=== PATIENT | female | born 1955 | race Caucasian/White ===

== ENCOUNTER → 2016-04-18 | Outpatient (CLI) | payer MEDICARE, OTHER ==
[~2016-04-18] MED LIST: ABILIFY5 MG PO; ALLOPURINOL300 MG PO; AMBIEN10 MG PO; AMITRIPTYLINE H10 M1 PO; AMITRIPTYLINE H75 M1 PO; ANTI-DIARRHEAL2 MG PO; ASPIR-LOW81 MG PO; ASPIRIN 32325 MG/TAB PO; ASPIRIN 81M81 MG/TA2 PO; ASPIRIN E.C. 8181 MG PO; ATARAX50 MG PO; ATIVAN 0.50.5 MG/TAB PO; AUGMENTIN 875 M1 TAB PO; BACTRIM DS 8001 TAB PO; BIO-CEF500 MG PO; BIOTIN FORTE EXT5 MG PO; CIPRO 500MG TA500 MG PO; COLACE 100100 MG/CAP PO; CRESTOR 10MG10 MG PO; CRESTOR40 MG PO; CYMBALTA 60MG60 MG PO; DESYREL 50MG50 MG PO; DOXYCYCLINE 10100 MG PO; DULCOLAX STOOL100 MG PO; EFFEXOR XR150 MG PO; EFFEXOR XR37.5 MG/CA PO; EFFEXOR-XR150 MG PO; EFFEXOR75 MG PO; ELAVIL100 MG PO; ELAVIL150 MG PO; FERRO-TIME325 MG PO; FERROUS SU325 MG/TAB PO; FUROSEMIDE PO; GABAPENTIN300 M1 PO; GABAPENTIN300 MG PO; GABAPENTIN600 MG PO; GLUCOPHAGE1000 MG PO; GLYBURIDE MICRON3 MG PO; HYDROCHLOR50 MG PO; INSULIN ASPART; IRON TABLETS325 MG PO; IRON324 M1 PO; KLONOPIN 0.5MG0.5 MG PO; KLONOPIN1 MG PO; KLOR-CON M2020 MEQ PO; LAMICTAL 100MG100 MG PO; LAMICTAL ODT200 MG MM; LAMICTAL ODT50 MG PO; LAMICTAL XR200 MG PO; LAMICTAL200 MG PO; LAMICTAL25 MG PO; LASIX 20MG TABL20 MG PO; LASIX 40MG TABL40 MG PO; LASIX ORAL S10 MG/ML PEG; LASIX20 MG PO; LATUDA20 MG PO; LATUDA40 MG PO; LATUDA60 MG PO; LATUDA80 MG PO; LEVAQUIN 250MG250 MG PO; LEVAQUIN 5500 MG/TA1 PO; LEVAQUIN 5500 MG/TAB PO; LEVAQUIN 750MG750 MG PO; LEVEMIR FLEX100 U/ML SQ; LEVEMIR FLEXPEN SC; LEVEMIR SQ; LEVEMIR100 U/ML SC; LEVEMIR100 U/ML SQ; LEVIMIR INSULIN; LEVOXYL0.05 MG PO; LEXAPRO20 MG PO; LIPITOR 40MG TA40 MG PO; LISINOPRIL PO; LISINOPRIL2.5 MG PO; LISINOPRIL5 MG PO; LITHIUM 30300 MG/CAP PO; LOPID 600M600 MG/TAB PO; LOPRESSOR 225 MG/TAB PO; LORTAB 5/500 501 TAB PO; LOVAZA1 GM PO; LYRICA150 MG PO; MACROBID 1100 MG/CAP PO; MAG-OX 400400 MG/TAB PO; MASON NATURAL2000 IU PO; MELATONIN3 M1 PO; MELATONIN5 M1 PO; METFORMIN500 MG PO; MINIPRESS2 MG PO; MINOCIN100 MG PO; MINOCYCLIN100 MG/CAP PO; MINOCYCLINE HY100 M1 PO; MONODOX100 PO; MONUROL 3 GM3 G/PKT PO; MOTRIN IB200 MG PO; MS CONTIN30 MG PO; MULTI VITAMINS1 TAB PO; MULTIPLE VITAMI1 CAP PO; MULTIPLE VITAMI1 TAB PO; MVI PO; NATURE'S BLE1000 MCG PO; NEURONTIN100 MG/CAP PO; NEURONTIN300 MG PO; NEURONTIN300 MG/CAP PO; NEURONTIN400 MG/CAP PO; NITRO-DUR0.4 MG/PAT TD; NITROSTAT0.4 MG/TAB SL; NORCO 325 MG-7.1 TAB PO; NORVASC 5MG5 MG/TAB PO; NOVLOG SQ; NOVOLOG 100U100 U/M1 SQ; NOVOLOG FLEX100 U/ML SC; NOVOLOG100 U/ML IV; OXYCONTIN 10MG10 MG PO; OXYCONTIN 20MG20 MG PO; OXYCONTIN15 MG PO; PERCOCET 325 MG1 TA2 PO; PERCOCET 325 MG1 TAB PO; PERCOCET 5/321 UDTAB PO; PERCR 7.5 PO; PHENERGAN 25 TA25 MG PO; PLAVIX 75MG TAB75 MG PO; PRAVACHOL 20MG20 MG PO; PRAVACHOL10 MG PO; PRAVACHOL80 MG PO; PRESERVISION1 SGL PO; PREVACHOL; PRIL40 PO; PRILOSEC40 MG PO; PRINIVIL10 MG PO; PRINIVIL2.5 MG PO; PRINIVIL5 MG PO; PROBIOTICA100 MILLIO PO; PROTONIX 40MG T40 MG PO; PROZAC 20MG20 MG PO; RESTORIL 77.5 MG/CAP PO; REVIA 50MG TABL50 MG PO; RITE AID BIO2500 MCG PO; ROCEPHIN VIA1 G/VIAL IV; ROXICODONE 55 MG/TAB PO; SEPTRA DS 8001 TAB PO; SEROQUEL50 MG PO; SODIUM BICARBO650 MG PO; SOME ANTIBIOTIC; SYNTHROID0.05 MG PO; SYNTHROID0.05 MG/TA PO; SYNTHROID0.1 MG PO; TOPAMAX 100MG100 M1 PO; TOPAMAX 100MG100 MG PO; TOPROL PO; TOPROL XL 25MG25 MG PO; TOPROL XL 50MG50 MG PO; TOPROL XL100 MG PO; TOPROL XL50 MG PO; TRAMADOL; TRAZADONE HYDR100 MG PO; TRESIBA FL100 UNIT/1 SQ; TYLENOL 325MG325 MG PO; TYLENOL 500MG500 MG PO; TYLENOL EXTRA500 M1 PO; Toprol XL PO; ULTRAM 50MG TAB50 MG PO; ULTRAM ER100 MG PO; ULTRAM50 MG PO; VANCOCIN PO; VICTOZA SQ; VITAMIN C BUFF500 MG PO; VITAMIN C500 MG PO; VITAMIN D 50,1.25 MG PO; VITAMIN D1000 IU PO; VITAMIN D2000 I1 PO; VITAMIN D31000 I1 PO; VITAMIN D32000 I1 PO; XODOL 7.5 PO; ZESTRIL 10MG10 MG PO; ZESTRIL PO; ZESTRIL2.5 MG PO; ZESTRIL5 MG PO; ZINC SO4 PO; ZITHROMAX Z PA250 MG PO; ZOFRAN 4MG T4 MG/TAB PO; ZOFRAN INJ4 MG/2 ML IV; ZOFRAN ODT4 MG PO; ZOFRAN4 M1 PO; ZOLOFT 100MG100 MG PO; ZYLOPRIM 100MG100 MG PO; ZYLOPRIM 300MG300 MG PO; ZYRTEC 10MG10 MG PO; [UNRECOGNIZED DRUG - OTHER]; [UNRECOGNIZED DRUG - OTHER] IV; [UNRECOGNIZED DRUG - OTHER] SC
== END ==
LOC: BHSO 10:54
DX: F31.74 Bipolar disorder, in full remission, most recent episode manic (principal)

== ENCOUNTER → 2016-05-14 | Outpatient (CLI) | payer MEDICARE, OTHER | LOC: WCC 09:16 | DX: E11.622 Type 2 diabetes mellitus with other skin ulcer (principal); Z89.522 Acquired absence of left knee | CPT/HCPCS: G0463 ==

== ENCOUNTER → 2016-05-17 | Outpatient (CLI) | payer MEDICARE, OTHER | LOC: BHSO 10:00 | DX: F31.81 Bipolar II disorder (principal) ==

== ENCOUNTER → 2016-05-23 | Outpatient (CLI) | payer MEDICARE, OTHER | LOC: WCC 09:53 | DX: T87.89 Other complications of amputation stump (principal); E11.622 Type 2 diabetes mellitus with other skin ulcer | CPT/HCPCS: G0463 ==

== ENCOUNTER → 2016-05-30 | Outpatient (CLI) | payer MEDICARE, OTHER | LOC: WCC 09:18 | DX: T87.89 Other complications of amputation stump (principal); E11.622 Type 2 diabetes mellitus with other skin ulcer | CPT/HCPCS: G0463 ==

== ENCOUNTER → 2016-06-13 | Outpatient (CLI) | payer MEDICARE, OTHER | LOC: WCC 09:57 | DX: T87.89 Other complications of amputation stump (principal); E11.622 Type 2 diabetes mellitus with other skin ulcer; L97.829 Non-pressure chronic ulcer of other part of left lower leg with unspecified severity | CPT/HCPCS: 17717; 27517; A6207; A6212; G0463 ==

== ENCOUNTER → 2016-06-27 | Outpatient (CLI) | payer MEDICARE, OTHER | LOC: WCC 09:58 | DX: T87.89 Other complications of amputation stump (principal); E11.622 Type 2 diabetes mellitus with other skin ulcer; L97.829 Non-pressure chronic ulcer of other part of left lower leg with unspecified severity | CPT/HCPCS: 17717; 27517; A6207; A6212; G0463 ==

== ENCOUNTER → 2016-07-03 | Outpatient (CLI) | payer MEDICARE, OTHER | LOC: ZCOL.LAB 16:10 | DX: Z11.2 Encounter for screening for other bacterial diseases (principal) ==

== ENCOUNTER 2016-07-05 09:31 | Inpatient (IN) | payer MEDICARE, OTHER ==
[~2016-07-05] VITALS: Ht 160 cm; Wt 81.7 kg
[~2016-07-05 09:31] MED LIST changes: -ATARAX50 MG PO; -ATIVAN 0.50.5 MG/TAB PO; -NOVOLOG 100U100 U/M1 SQ; -PRESERVISION1 SGL PO; -RESTORIL 77.5 MG/CAP PO; -TRESIBA FL100 UNIT/1 SQ; -VITAMIN D 50,1.25 MG PO
[2016-08-07] VITALS (12 sets, daily range): BP systolic 94–127; BP diastolic 47–68; PULSE 68–91; TEMP 97.8–98.6
[2016-08-07] MEDS ORDERED: VITAMIN D 50,1.25 MG PO (06:32)
[2016-08-07] MEDS ORDERED: DOXYCYCLINE 10100 MG PO (06:40)
[2016-08-07] MEDS ORDERED: LOPRESSOR 225 MG/TAB PO (06:40)
[2016-08-07] MEDS ORDERED: ATARAX50 MG PO (06:41)
[2016-08-07] MEDS ORDERED: TRESIBA FL100 UNIT/1 SQ (06:41)
[2016-08-07] MEDS ORDERED: PRESERVISION1 SGL PO (06:42)
[2016-08-07] MEDS ORDERED: NOVOLOG 100U100 U/M1 SQ (06:42)
[2016-08-07] MEDS ORDERED: ATIVAN 0.50.5 MG/TAB PO (06:43)
[2016-08-07] MEDS ORDERED: EFFEXOR-XR150 MG PO (06:44)
[2016-08-07] MEDS ORDERED: RESTORIL 77.5 MG/CAP PO (06:46)
[2016-08-07] MEDS ORDERED: NEURONTIN400 MG/CAP PO (10:17)
[2016-08-07 10:54] LABS: CALCIUM 10.2 mg/dL (8.4-10.2); CREATININE, serum 1.35 mg/dL (0.52-1.25); POTASSIUM 4.4 mmol/L (3.4-5.0)
[2016-08-08 02:00] VITALS: BP 117/65; PULSE 94
[2016-08-08 04:04] VITALS: BP 130/72; PULSE 97; TEMP 98.1
[2016-08-08 08:09] LABS: HEMATOCRIT 35.8 % (37.0-47.0)
[2016-08-08 08:26] LABS: CALCIUM 9.3 mg/dL (8.4-10.2); CREATININE, serum 1.23 mg/dL (0.52-1.25)
[2016-08-08 10:19] VITALS: BP 113/73; PULSE 94; TEMP 98.8
[2016-08-08 13:37] VITALS: BP 127/60; PULSE 96
[2016-08-08 16:54] VITALS: BP 115/46; PULSE 94; TEMP 98.1
[2016-08-08 21:50] VITALS: BP 137/55; PULSE 75; TEMP 98.5
[2016-08-09] VITALS (7 sets, daily range): BP systolic 119–151; BP diastolic 51–88; PULSE 91–104; TEMP 98–98.6
[2016-08-09 13:08] LABS: CREATININE, serum 1.22 mg/dL (0.52-1.25)
[2016-08-10 05:55] VITALS: BP 122/69; PULSE 90; TEMP 98.8
[2016-08-10] MEDS ORDERED: NORCO 325 MG-7.1 TAB PO (06:10)
[2016-08-10] MEDS ORDERED: TRESIBA FL100 UNIT/1 SQ (08:06)
[2016-08-10 09:11] VITALS: BP 124/68; PULSE 88
[2016-08-10 12:35] VITALS: BP 124/68; PULSE 88; TEMP 98.8
== END 2016-08-10 13:15 | DRG 475 ==
LOC: SURG 08-07 06:03 → INPTSU 08-07 06:03 → SURG 08-07 07:30
PROVIDERS: Nurse Anesthetist, Certified Registered; Orthopaedic Surgery; Physician Assistant
PROC: 0Y6D0Z3 Detachment at Left Upper Leg, Low, Open Approach (ICD-10-PCS; principal; 2016-08-07 07:30)
DX: T87.44 Infection of amputation stump, left lower extremity (principal); I13.0 Hypertensive heart and chronic kidney disease with heart failure and stage 1 through stage 4 chronic kidney disease, or unspecified chronic kidney disease; I50.32 Chronic diastolic (congestive) heart failure; N17.9 Acute kidney failure, unspecified; L97.829 Non-pressure chronic ulcer of other part of left lower leg with unspecified severity; N18.3 Chronic kidney disease, stage 3 (moderate); E11.22 Type 2 diabetes mellitus with diabetic chronic kidney disease; F31.9 Bipolar disorder, unspecified; Z79.4 Long term (current) use of insulin; I25.10 Atherosclerotic heart disease of native coronary artery without angina pectoris; Z95.1 Presence of aortocoronary bypass graft; E11.42 Type 2 diabetes mellitus with diabetic polyneuropathy; E11.622 Type 2 diabetes mellitus with other skin ulcer; E11.65 Type 2 diabetes mellitus with hyperglycemia; Z90.5 Acquired absence of kidney
CPT/HCPCS: 99223; 99232-AI; A9284; J0690; J1815; J2250; J2270; J2704; J3370; J7030; J7050

== ENCOUNTER → 2016-07-16 | Outpatient (CLI) | payer MEDICARE, OTHER ==
[~2016-07-16] MED LIST changes: +ATARAX50 MG PO; +ATIVAN 0.50.5 MG/TAB PO; +NOVOLOG 100U100 U/M1 SQ; +PRESERVISION1 SGL PO; +RESTORIL 77.5 MG/CAP PO; +TRESIBA FL100 UNIT/1 SQ; +VITAMIN D 50,1.25 MG PO
== END ==
LOC: BHSO 11:35
DX: F31.81 Bipolar II disorder (principal)

== ENCOUNTER → 2016-08-03 | Outpatient (CLI) | payer MEDICARE, OTHER, MEDICAID | LOC: BHSO 10:47 | DX: F31.81 Bipolar II disorder (principal) ==

== ENCOUNTER → 2016-11-15 | Outpatient (CLI) | payer MEDICARE, OTHER | LOC: MC.RAD 13:14 | DX: Z12.31 Encounter for screening mammogram for malignant neoplasm of breast (principal); N63 Unspecified lump in breast; Z85.72 Personal history of non-Hodgkin lymphomas ==

== ENCOUNTER → 2016-11-16 | Outpatient (CLI) | payer MEDICARE, OTHER | LOC: MC.RAD 12:49 | DX: N63 Unspecified lump in breast (principal) ==

== ENCOUNTER 2017-04-03 10:47 | Inpatient (IN) | payer MEDICARE, OTHER ==
[2017-04-03] VITALS (428 sets, daily range): BP systolic 107–148; BP diastolic 56–96; PULSE 76–83; TEMP 97.5–98; O2SAT 81–100
[~2017-04-03] VITALS: Ht 154.9 cm; Wt 78.2 kg
[2017-04-03 11:34] LABS: BASO # 0.1 (0.0-0.2); BASO % 0.6 % (0.0-2.0); EOS # 0.3 (0.0-0.7); EOS % 2.8 % (0-4.0); GRAN # 6.1 (1.4-6.5); GRAN % 68.7 % (42.2-75.2); HEMATOCRIT 43.2 % (37.0-47.0); HEMOGLOBIN 14.3 g/dl (12.5-16.0); LYMPH # 1.7 (1.2-3.4); LYMPH % 19.5 % (20.0-51.0); MEAN CELL VOLUME 86 fl (80.0-100.0); MEAN CORPUSCULAR HEMOGLOBIN 28 pg (27.0-31.0); MEAN CORPUSCULAR HGB CONC 33 g/dl (33.0-37.0); MEAN PLATELET VOLUME 8.7 fl (7.4-10.4); MONO # 0.6 (0.1-0.6); PLATELET COUNT 136 K/mm3 (130-400); RED BLOOD COUNT 5.04 M/mm3 (4.10-5.30); REDCELL DISTRIBUTION WIDTH-CV 15.3 % (11.5-14.5)
[2017-04-03 11:36] LABS: ALANINE AMINOTRANSFERASE 30 U/L (9-52); ALBUMIN 4.8 gm/dL (3.5-5.0); ALKALINE PHOSPHATASE 158 U/L (50-136); ANION GAP 16 mmol/L (7-16); AST,SGOT 31 U/L (15-37); BILIRUBIN,TOTAL 0.6 mg/dL (0.0-1.0); BLOOD UREA NITROGEN 49 mg/dL (7-17); CALCIUM 11.1 mg/dL (8.4-10.2); CARBON DIOXIDE 17 mmol/L (22-30); CHLORIDE 107 mmol/L (98-107); CREATININE, serum 1.25 mg/dL (0.52-1.25); GLUCOSE 167 mg/dL (74-106); POTASSIUM 3.9 mmol/L (3.4-5.0); SODIUM 140 mmol/L (137-145); TOTAL PROTEIN 7.7 gm/dL (6.4-8.2)
[2017-04-03 11:52] LABS: TROPONIN-I < 0.012 ng/mL (0.000-0.034)
[2017-04-03 11:54] LABS: INR 1.1 (0.8-3.0); PROTHROMBIN TIME 12.7 SECONDS (9.7-12.8)
[2017-04-03 11:57] LABS: PARTIAL THROMBOPLASTIN TIME 32.4 SECONDS (26.0-37.0)
[2017-04-04] VITALS (471 sets, daily range): BP systolic 96–135; BP diastolic 46–91; PULSE 77–85; TEMP 97.5–99.5; O2SAT 63–100
[2017-04-04 05:16] LABS: BASO % 0.4 % (0.0-2.0); EOS # 0.2 (0.0-0.7); EOS % 2.3 % (0-4.0); GRAN # 6.8 (1.4-6.5); LYMPH # 1.4 (1.2-3.4); LYMPH % 15.7 % (20.0-51.0); MEAN CELL VOLUME 87 fl (80.0-100.0); MEAN CORPUSCULAR HGB CONC 33 g/dl (33.0-37.0); MEAN PLATELET VOLUME 8.3 fl (7.4-10.4); MONO # 0.7 (0.1-0.6); MONO % 7.1 % (1.7-9.3); PLATELET COUNT 109 K/mm3 (130-400); RED BLOOD COUNT 4.09 M/mm3 (4.10-5.30); REDCELL DISTRIBUTION WIDTH-CV 15.3 % (11.5-14.5)
[2017-04-04 05:17] LABS: HEMATOCRIT 35.6 % (37.0-47.0); HEMOGLOBIN 11.8 g/dl (12.5-16.0); MEAN CORPUSCULAR HEMOGLOBIN 29 pg (27.0-31.0)
[2017-04-04 05:28] LABS: CALCIUM 10.2 mg/dL (8.4-10.2); CREATININE, serum 1.27 mg/dL (0.52-1.25)
[2017-04-04 05:39] LABS: TROPONIN-I 0.012 ng/mL (0.000-0.034)
[2017-04-04] MEDS ORDERED: LOPRESSOR 225 MG/TAB PO (08:48)
[2017-04-05] VITALS: BP 113/62; PULSE 74; TEMP 98.9
[2017-04-05 04:53] VITALS: BP 106/67; PULSE 73; TEMP 98.5
[2017-04-05 06:50] LABS: CALCIUM 10.1 mg/dL (8.4-10.2); CREATININE, serum 1.27 mg/dL (0.52-1.25)
[2017-04-05 08:35] VITALS: BP 121/65; PULSE 79; TEMP 97.4
[2017-04-05 12:27] VITALS: BP 118/62; PULSE 79; TEMP 97.9
[2017-04-05 16:57] VITALS: BP 117/70; PULSE 78; TEMP 98.4
[2017-04-05 18:36] LABS: COLLECTION METHOD CLEAN CATCH
[2017-04-05 18:45] LABS: PH 5 (5-8); SQUAMOUS EPITHELIAL 0-2 /hpf; URINE APPEARANCE Hazy; URINE BACTERIA Rare /hpf; URINE BILIRUBIN Negative (NEGATIVE); URINE BLOOD Negative (NEGATIVE); URINE COLOR Yellow; URINE GLUCOSE Negative (NEGATIVE); URINE KETONE Negative (NEGATIVE); URINE LEUKOCYTE ESTERASE Trace (NEGATIVE); URINE NITRATE Negative (NEGATIVE); URINE PROTEIN(semi-quant) Negative (NEGATIVE); URINE RBC 0-2 /hpf; URINE UROBILINOGEN Negative (NEGATIVE)
[2017-04-05 19:50] VITALS: BP 110/59; PULSE 74; TEMP 97.5
[2017-04-06 00:05] VITALS: BP 107/59; PULSE 74; TEMP 98.3
[2017-04-06 02:45] VITALS: BP 104/56; PULSE 88; TEMP 98.7
[2017-04-06 07:46] LABS: BASO % 0.5 % (0.0-2.0); EOS # 0.3 (0.0-0.7); EOS % 4.8 % (0-4.0); GRAN # 4.2 (1.4-6.5); GRAN % 63.9 % (42.2-75.2); LYMPH # 1.5 (1.2-3.4); LYMPH % 22.7 % (20.0-51.0); MEAN CELL VOLUME 89 fl (80.0-100.0); MEAN CORPUSCULAR HGB CONC 32 g/dl (33.0-37.0); MEAN PLATELET VOLUME 9.3 fl (7.4-10.4); MONO # 0.5 (0.1-0.6); MONO % 7.5 % (1.7-9.3); PLATELET COUNT 101 K/mm3 (130-400); RED BLOOD COUNT 3.81 M/mm3 (4.10-5.30); REDCELL DISTRIBUTION WIDTH-CV 15.4 % (11.5-14.5)
[2017-04-06 07:51] LABS: HEMATOCRIT 33.7 % (37.0-47.0); HEMOGLOBIN 10.9 g/dl (12.5-16.0); MEAN CORPUSCULAR HEMOGLOBIN 29 pg (27.0-31.0)
[2017-04-06 08:00] VITALS: BP 103/64; PULSE 73; TEMP 97.3
[2017-04-06 08:07] LABS: CALCIUM 10.3 mg/dL (8.4-10.2); CREATININE, serum 1.27 mg/dL (0.52-1.25); POTASSIUM 3.7 mmol/L (3.4-5.0)
[2017-04-06 12:57] VITALS: BP 110/54; PULSE 65; TEMP 98
[2017-04-06 16:19] VITALS: BP 104/52; PULSE 65; TEMP 98.8
[2017-04-06 20:40] VITALS: BP 138/62; PULSE 70; TEMP 98.5
[2017-04-07 00:33] VITALS: BP 106/55; PULSE 66; TEMP 98.4
[2017-04-07 03:04] VITALS: BP 110/55; PULSE 65; TEMP 98.7
[2017-04-07 08:45] VITALS: BP 97/54; PULSE 65; TEMP 98.2
[2017-04-07 12:16] VITALS: BP 104/40; PULSE 62; TEMP 98.4
[2017-04-07 15:05] VITALS: BP 102/56; PULSE 67; TEMP 98.3
[2017-04-07 20:00] VITALS: BP 121/50; PULSE 71; TEMP 98.2
[2017-04-08 00:12] VITALS: BP 127/60; PULSE 70; TEMP 98.2
[2017-04-08 04:52] VITALS: BP 102/67; PULSE 64; TEMP 98.2
[2017-04-08 07:29] VITALS: BP 106/49; PULSE 67; TEMP 97.6
[2017-04-08 11:15] VITALS: BP 101/46; PULSE 70; TEMP 97.9
[2017-04-08] MEDS ORDERED: MACROBID 1100 MG/CAP PO (12:04)
[2017-04-08] MEDS ORDERED: IMDUR 30MG30 MG/TAB PO (13:03)
[2017-04-08 13:10] VITALS: BP 101/46; PULSE 70; TEMP 97.9
== END 2017-04-08 14:55 | DRG 247 ==
LOC: COL.ER 10:47 → MEDICAL 13:12 → ICU 13:12 → COL.ER 13:17 → ICU 15:27 → COL.ER 15:27 → MEDICAL 04-04 11:20
PROVIDERS: Emergency Medicine; Internal Medicine; Internal Medicine Cardiovascular Disease; Nurse Practitioner Family
PROC: 0271356 Dilation of Coronary Artery, Two Arteries, Bifurcation, with Two Drug-eluting Intraluminal Devices, Percutaneous Approach (ICD-10-PCS; principal; 2017-04-03)
PROC: B2111ZZ Fluoroscopy of Multiple Coronary Arteries using Low Osmolar Contrast (ICD-10-PCS; 2017-04-03)
PROC: 4A023N8 Measurement of Cardiac Sampling and Pressure, Bilateral, Percutaneous Approach (ICD-10-PCS; 2017-04-03)
DX: I25.110 Atherosclerotic heart disease of native coronary artery with unstable angina pectoris (principal); N39.0 Urinary tract infection, site not specified; I12.9 Hypertensive chronic kidney disease with stage 1 through stage 4 chronic kidney disease, or unspecified chronic kidney disease; E11.22 Type 2 diabetes mellitus with diabetic chronic kidney disease; N18.3 Chronic kidney disease, stage 3 (moderate); K21.9 Gastro-esophageal reflux disease without esophagitis; M10.9 Gout, unspecified; D50.9 Iron deficiency anemia, unspecified; F31.9 Bipolar disorder, unspecified; E03.9 Hypothyroidism, unspecified; M79.662 Pain in left lower leg; M79.661 Pain in right lower leg; B96.20 Unspecified Escherichia coli [E. coli] as the cause of diseases classified elsewhere; Z95.1 Presence of aortocoronary bypass graft; Z87.442 Personal history of urinary calculi; Z95.5 Presence of coronary angioplasty implant and graft
CPT/HCPCS: 99223-AI; 99232-AI; 99233-AI; 99239; C1725; C1760; C1769; C1874; C1887; C1894; C9600; J1644; J1815; J2250; J2270; J3010; J7030; Q9967

== ENCOUNTER → 2017-08-23 | Outpatient (CLI) | payer MEDICARE, OTHER ==
[~2017-08-23] MED LIST changes: +FLEXERIL 1010 MG/TAB PO; +IMDUR 30MG30 MG/TAB PO; +LOMOTIL 0.025 M1 TAB PO; +NOVOLOG FLEX100 U/ML SQ; +PANCREAZE 437501 ECC PO
== END ==
LOC: BHSO 09:12
DX: F31.81 Bipolar II disorder (principal)
CPT/HCPCS: G0463

== ENCOUNTER → 2017-10-07 | Outpatient (REF) ==
[~2017-10-07] MED LIST changes: +FLOMAX 0.40.4 MG/CAP PO; +INDERAL60 MG PO; +PROAMATINE 5MG T5 MG PO; +SENSIPAR30 MG PO; +SYNTHROID 0.0.025 MG PO; +URECHOLINE50 MG PO
[2017-10-07 17:28] LABS: CALCIUM 10.9 mg/dL (8.4-10.2); CREATININE, serum 1.44 mg/dL (0.52-1.25)
== END ==
LOC: ZCOL.LAB 17:05
PROVIDERS: Internal Medicine
DX: I25.10 Atherosclerotic heart disease of native coronary artery without angina pectoris (principal)

== ENCOUNTER → 2017-10-14 | Outpatient (REF) ==
[2017-10-14 10:57] LABS: COLLECTION METHOD CATHETER
[2017-10-14 11:18] LABS: PH 7 (5-8); SQUAMOUS EPITHELIAL 0-2 /hpf; URINE APPEARANCE Clear; URINE BACTERIA Rare /hpf; URINE BILIRUBIN Negative (NEGATIVE); URINE BLOOD 1+ (NEGATIVE); URINE COLOR Straw; URINE GLUCOSE Negative (NEGATIVE); URINE KETONE Negative (NEGATIVE); URINE LEUKOCYTE ESTERASE 2+ (NEGATIVE); URINE NITRATE Negative (NEGATIVE); URINE PROTEIN(semi-quant) Negative (NEGATIVE); URINE RBC 0-2 /hpf; URINE UROBILINOGEN Negative (NEGATIVE)
== END ==
LOC: ZCOL.LAB 10:55
PROVIDERS: Internal Medicine
DX: N39.0 Urinary tract infection, site not specified (principal)

== ENCOUNTER → 2017-10-17 | Outpatient (REF) | LOC: ZCOL.LAB 22:20 | DX: Z87.440 Personal history of urinary (tract) infections (principal) ==

== ENCOUNTER 2017-10-21 15:56 | Emergency (ER) | payer MEDICARE, OTHER ==
[2008-12-27 17:53] VITALS: BP 144/90
[~2017-10-21] VITALS: Ht 157.5 cm; Wt 74.5 kg
[2017-10-21 15:57] VITALS: TEMP 98.9
[2017-10-21 16:43] LABS: COLLECTION METHOD CATHETER
[2017-10-21 16:48] LABS: BASO # 0.1 (0.0-0.2); BASO % 0.6 % (0.0-2.0); EOS # 0.5 (0.0-0.7); EOS % 5.3 % (0-4.0); GRAN # 6.1 (1.4-6.5); HEMATOCRIT 39.1 % (37.0-47.0); HEMOGLOBIN 12.8 g/dl (12.5-16.0); LYMPH # 1.8 (1.2-3.4); LYMPH % 20.2 % (20.0-51.0); MEAN CELL VOLUME 86 fl (80.0-100.0); MEAN CORPUSCULAR HEMOGLOBIN 28 pg (27.0-31.0); MEAN CORPUSCULAR HGB CONC 33 g/dl (33.0-37.0); MEAN PLATELET VOLUME 8.8 fl (7.4-10.4); MONO # 0.5 (0.1-0.6); MONO % 5.1 % (1.7-9.3); PLATELET COUNT 149 K/mm3 (130-400); RED BLOOD COUNT 4.57 M/mm3 (4.10-5.30); REDCELL DISTRIBUTION WIDTH-CV 13.9 % (11.5-14.5)
[2017-10-21 16:51] LABS: PH 6 (5-8); SQUAMOUS EPITHELIAL 0-2 /hpf; URINE APPEARANCE Cloudy; URINE BACTERIA Rare /hpf; URINE BILIRUBIN Negative (NEGATIVE); URINE BLOOD 1+ (NEGATIVE); URINE COLOR Yellow; URINE GLUCOSE Negative (NEGATIVE); URINE KETONE Negative (NEGATIVE); URINE LEUKOCYTE ESTERASE 3+ (NEGATIVE); URINE NITRATE Negative (NEGATIVE); URINE PROTEIN(semi-quant) 1+ (NEGATIVE); URINE UROBILINOGEN Negative (NEGATIVE)
[2017-10-21 17:02] LABS: ALBUMIN 4.4 gm/dL (3.5-5.0); BILIRUBIN,TOTAL 0.5 mg/dL (0.0-1.0); C-REACTIVE PROTEIN 2.6 mg/dL (0.0-0.9); CALCIUM 10.6 mg/dL (8.4-10.2); CREATININE, serum 1.47 mg/dL (0.52-1.25); POTASSIUM 4.1 mmol/L (3.4-5.0); TOTAL PROTEIN 7.4 gm/dL (6.4-8.2)
[2017-10-21] MEDS ORDERED: LEVAQUIN 5500 MG/TA1 PO (20:08)
[2017-10-21 20:37] VITALS: BP 108/55; PULSE 70
== END 2017-10-21 20:37 | disposition home or self-care (01) ==
LOC: COL.ER 15:56
PROVIDERS: Family Medicine
DX: F31.9 Bipolar disorder, unspecified (principal); E11.9 Type 2 diabetes mellitus without complications; F29 Unspecified psychosis not due to a substance or known physiological condition; I10 Essential (primary) hypertension; I25.10 Atherosclerotic heart disease of native coronary artery without angina pectoris; N39.0 Urinary tract infection, site not specified; Z91.14 Patient's other noncompliance with medication regimen; Z79.02 Long term (current) use of antithrombotics/antiplatelets; Z79.82 Long term (current) use of aspirin; Z79.4 Long term (current) use of insulin
CPT/HCPCS: J1956; J7030

== ENCOUNTER → 2017-10-31 | Outpatient (CLI) | payer MEDICARE, OTHER | LOC: BHSO 13:08 | DX: F31.81 Bipolar II disorder (principal) | CPT/HCPCS: G0463 ==

== ENCOUNTER 2017-11-08 00:13 | Emergency (ER) | payer MEDICARE, OTHER ==
[2008-12-27 17:53] VITALS: BP 144/90
[~2017-11-08] VITALS: Ht 154.9 cm; Wt 72.7 kg
[2017-11-08 00:17] VITALS: TEMP 98.3
[2017-11-08 00:35] LABS: BASO # 0.1 (0.0-0.2); BASO % 0.5 % (0.0-2.0); EOS # 0.3 (0.0-0.7); EOS % 2.9 % (0-4.0); GRAN # 8.1 (1.4-6.5); GRAN % 71.8 % (42.2-75.2); HEMATOCRIT 41.2 % (37.0-47.0); LYMPH # 2.2 (1.2-3.4); LYMPH % 19.4 % (20.0-51.0); MEAN CELL VOLUME 83 fl (80.0-100.0); MEAN CORPUSCULAR HEMOGLOBIN 28 pg (27.0-31.0); MEAN CORPUSCULAR HGB CONC 34 g/dl (33.0-37.0); MEAN PLATELET VOLUME 9.1 fl (7.4-10.4); MONO # 0.5 (0.1-0.6); MONO % 4.8 % (1.7-9.3); PLATELET COUNT 170 K/mm3 (130-400); RED BLOOD COUNT 4.95 M/mm3 (4.10-5.30); REDCELL DISTRIBUTION WIDTH-CV 13.4 % (11.5-14.5)
[2017-11-08 00:49] LABS: ACETONE,SERUM NEGATIVE
[2017-11-08 00:53] LABS: ALANINE AMINOTRANSFERASE 36 U/L (9-52); ALBUMIN 4.1 gm/dL (3.5-5.0); ALKALINE PHOSPHATASE 211 U/L (50-136); ANION GAP 20 mmol/L (7-16); AST,SGOT 17 U/L (15-37); BILIRUBIN,TOTAL 0.3 mg/dL (0.0-1.0); BLOOD UREA NITROGEN 72 mg/dL (7-17); CALCIUM 9.9 mg/dL (8.4-10.2); CARBON DIOXIDE 19 mmol/L (22-30); CHLORIDE 92 mmol/L (98-107); CREATININE, serum 1.49 mg/dL (0.52-1.25); POTASSIUM 3.8 mmol/L (3.4-5.0); SODIUM 132 mmol/L (137-145); TOTAL PROTEIN 7.1 gm/dL (6.4-8.2)
[2017-11-08 00:59] LABS: COLLECTION METHOD CLEAN CATCH
[2017-11-08 01:04] LABS: LIPASE 229 U/L (23-300)
[2017-11-08 01:05] LABS: MUCOUS Present /lpf; PH 6 (5-8); SQUAMOUS EPITHELIAL 0-2 /hpf; URINE APPEARANCE Clear; URINE BACTERIA None Seen /hpf; URINE BILIRUBIN Negative (NEGATIVE); URINE BLOOD Negative (NEGATIVE); URINE COLOR Straw; URINE GLUCOSE 3+ (NEGATIVE); URINE KETONE Negative (NEGATIVE); URINE LEUKOCYTE ESTERASE Negative (NEGATIVE); URINE NITRATE Negative (NEGATIVE); URINE PROTEIN(semi-quant) Negative (NEGATIVE); URINE RBC 0-2 /hpf; URINE UROBILINOGEN Negative (NEGATIVE)
[2017-11-08 01:32] LABS: GLUCOSE 628 mg/dL (74-106)
[2017-11-08 03:05] VITALS: BP 113/54; PULSE 68
[2017-11-12] MEDS ORDERED: CREON 120000 U-1 ECC PO (17:39)
[2017-11-12] MEDS ORDERED: NATURAL C500 MG PO (17:41)
[2017-11-12] MEDS ORDERED: NOVOLOG FLEX100 U/ML SQ (17:48)
[2017-11-12] MEDS ORDERED: OCUVITE1 TA1 PO (17:49)
[2017-11-12] MEDS ORDERED: NYAMYC100000 U/G TP (17:49)
[2017-11-12] MEDS ORDERED: NYSTATIN CREAM15 GM TP (17:49)
[2017-11-12] MEDS ORDERED: SODIUM BICARBO650 MG PO (17:50)
[2017-11-12] MEDS ORDERED: PROTONIX 40MG T40 MG PO (17:50)
[2017-11-12] MEDS ORDERED: LOMOTIL 0.025 M1 TAB PO (17:52)
[2017-11-12] MEDS ORDERED: RESTORIL 1515 MG/CAP PO (17:53)
== END 2017-11-08 03:20 | disposition short-term general hospital (02) ==
LOC: COL.ER 00:13
PROVIDERS: Emergency Medicine
DX: E11.10 Type 2 diabetes mellitus with ketoacidosis without coma (principal); E11.40 Type 2 diabetes mellitus with diabetic neuropathy, unspecified; E11.22 Type 2 diabetes mellitus with diabetic chronic kidney disease; R11.2 Nausea with vomiting, unspecified; E78.5 Hyperlipidemia, unspecified; F31.9 Bipolar disorder, unspecified; I25.10 Atherosclerotic heart disease of native coronary artery without angina pectoris; I12.9 Hypertensive chronic kidney disease with stage 1 through stage 4 chronic kidney disease, or unspecified chronic kidney disease; N18.9 Chronic kidney disease, unspecified; E03.9 Hypothyroidism, unspecified; Z79.4 Long term (current) use of insulin
CPT/HCPCS: J1815; J2270; J2405; J3010; J3480; J7030

== ENCOUNTER → 2017-12-04 | Outpatient (CLI) | payer MEDICARE, OTHER ==
[~2017-12-04] MED LIST changes: +CREON 120000 U-1 ECC PO; +DESYREL DIVIDO150 M1 PO; +INDERAL LA 60MG60 MG; -INDERAL60 MG PO; +MERIBIN5 MG PO; +NATURAL C500 MG PO; -NATURE'S BLE1000 MCG PO; +NYAMYC100000 U/G TP; +NYSTATIN CREAM15 GM TP; +OCUVITE1 TA1 PO; +RESTORIL 1515 MG/CAP PO; +TRESIBA FL200 UNIT/1 SQ
== END ==
LOC: BHSO 10:02
DX: F31.81 Bipolar II disorder (principal)
CPT/HCPCS: G0463

== ENCOUNTER → 2017-12-12 | Outpatient (CLI) | payer MEDICARE, OTHER ==
[2017-12-12 09:23] LABS: COLLECTION METHOD CLEAN CATCH
[2017-12-12 09:35] LABS: PH 5 (5-8); SQUAMOUS EPITHELIAL 0-2 /hpf; URINE APPEARANCE Hazy; URINE BACTERIA Rare /hpf; URINE BILIRUBIN Negative (NEGATIVE); URINE BLOOD Negative (NEGATIVE); URINE COLOR Yellow; URINE GLUCOSE Negative (NEGATIVE); URINE KETONE Negative (NEGATIVE); URINE LEUKOCYTE ESTERASE 3+ (NEGATIVE); URINE NITRATE Positive (NEGATIVE); URINE PROTEIN(semi-quant) Negative (NEGATIVE); URINE RBC 0-2 /hpf; URINE UROBILINOGEN Negative (NEGATIVE)
== END ==
LOC: ZLAB.STJ 09:21
PROVIDERS: Nurse Practitioner
DX: N18.9 Chronic kidney disease, unspecified (principal)

== ENCOUNTER 2018-01-26 03:37 | Inpatient (IN) | payer MEDICARE, OTHER ==
[~2018-01-26] VITALS: Ht 154.9 cm; Wt 79.3 kg
[2018-01-26] VITALS (113 sets, daily range): BP systolic 104–115; BP diastolic 46–69; PULSE 73–81; TEMP 98.1–98.9; O2SAT 80–99
[2018-01-26 04:11] LABS: BASO # 0.1 (0.0-0.2); BASO % 0.7 % (0.0-2.0); EOS # 0.3 (0.0-0.7); EOS % 4.6 % (0-4.0); GRAN # 4.6 (1.4-6.5); HEMOGLOBIN 12.5 g/dl (12.5-16.0); LYMPH # 1.8 (1.2-3.4); LYMPH % 24.4 % (20.0-51.0); MEAN CELL VOLUME 85 fl (80.0-100.0); MEAN CORPUSCULAR HEMOGLOBIN 27 pg (27.0-31.0); MEAN CORPUSCULAR HGB CONC 32 g/dl (33.0-37.0); MEAN PLATELET VOLUME 9.1 fl (7.4-10.4); MONO # 0.6 (0.1-0.6); MONO % 7.8 % (1.7-9.3); PLATELET COUNT 127 K/mm3 (130-400); RED BLOOD COUNT 4.59 M/mm3 (4.10-5.30); REDCELL DISTRIBUTION WIDTH-CV 14.7 % (11.5-14.5)
[2018-01-26 04:19] LABS: ALANINE AMINOTRANSFERASE 47 U/L (9-52); ALBUMIN 3.9 gm/dL (3.5-5.0); ALKALINE PHOSPHATASE 229 U/L (50-136); ANION GAP 9 mmol/L (7-16); AST,SGOT 33 U/L (15-37); BILIRUBIN,TOTAL 0.2 mg/dL (0.0-1.0); BLOOD UREA NITROGEN 37 mg/dL (7-17); CALCIUM 9.8 mg/dL (8.4-10.2); CARBON DIOXIDE 29 mmol/L (22-30); CHLORIDE 99 mmol/L (98-107); CREATININE, serum 1.31 mg/dL (0.52-1.25); GLUCOSE 319 mg/dL (74-106); LIPASE 52 U/L (23-300); POTASSIUM 4.2 mmol/L (3.4-5.0); SODIUM 137 mmol/L (137-145); TOTAL PROTEIN 6.7 gm/dL (6.4-8.2)
[2018-01-26 04:49] LABS: TROPONIN-I < 0.012 ng/mL (0.000-0.034)
[2018-01-26 04:54] LABS: COLLECTION METHOD CLEAN CATCH
[2018-01-26 05:02] LABS: ACETONE,SERUM NEGATIVE
[2018-01-26 05:06] LABS: BUDDING YEAST Present /hpf; PH 7 (5-8); URINE APPEARANCE Hazy; URINE BACTERIA Rare /hpf; URINE BILIRUBIN Negative (NEGATIVE); URINE BLOOD Negative (NEGATIVE); URINE COLOR Yellow; URINE GLUCOSE 3+ (NEGATIVE); URINE KETONE Negative (NEGATIVE); URINE LEUKOCYTE ESTERASE 2+ (NEGATIVE); URINE NITRATE Positive (NEGATIVE); URINE PROTEIN(semi-quant) 1+ (NEGATIVE); URINE RBC 0-2 /hpf; URINE UROBILINOGEN Negative (NEGATIVE)
[2018-01-26] MEDS ORDERED: PROBIOTIC GOLD1 EACH PO (08:08)
[2018-01-26] MEDS ORDERED: SENSIPAR30 MG PO (08:31)
[2018-01-26] MEDS ORDERED: NITRO-DUR0.2 MG/PAT TD (12:10)
[2018-01-26] MEDS ORDERED: URECHOLINE50 MG PO (12:12)
[2018-01-26] MEDS ORDERED: NORCO 325 MG-101 TAB PO (12:14)
[2018-01-26] MEDS ORDERED: INDERAL 20MG20 MG PO (15:01)
[2018-01-27 00:09] VITALS: BP 108/58; PULSE 70; TEMP 98
[2018-01-27 04:14] VITALS: BP 93/46; PULSE 64; TEMP 97.1
[2018-01-27 06:29] LABS: BASO % 0.7 % (0.0-2.0); EOS # 0.3 (0.0-0.7); EOS % 5.6 % (0-4.0); GRAN # 3.6 (1.4-6.5); GRAN % 59.1 % (42.2-75.2); HEMATOCRIT 38.1 % (37.0-47.0); HEMOGLOBIN 12.1 g/dl (12.5-16.0); LYMPH # 1.6 (1.2-3.4); LYMPH % 27.2 % (20.0-51.0); MEAN CELL VOLUME 87 fl (80.0-100.0); MEAN CORPUSCULAR HEMOGLOBIN 28 pg (27.0-31.0); MEAN CORPUSCULAR HGB CONC 32 g/dl (33.0-37.0); MONO # 0.4 (0.1-0.6); MONO % 7.1 % (1.7-9.3); PLATELET COUNT 113 K/mm3 (130-400); RED BLOOD COUNT 4.38 M/mm3 (4.10-5.30); REDCELL DISTRIBUTION WIDTH-CV 15.2 % (11.5-14.5)
[2018-01-27 07:02] LABS: CALCIUM 9.9 mg/dL (8.4-10.2); CREATININE, serum 1.23 mg/dL (0.52-1.25); MAGNESIUM 1.9 mg/dL (1.6-2.3); POTASSIUM 4.6 mmol/L (3.4-5.0)
[2018-01-27 07:27] LABS: THYROID STIMULATING HORMONE 0.638 uIU/mL (0.465-4.680)
[2018-01-27 08:00] VITALS: BP 93/46; PULSE 65; TEMP 97.4
[2018-01-27 12:15] VITALS: BP 138/62; PULSE 84; TEMP 98
[2018-01-27 16:08] VITALS: BP 117/47; PULSE 88; TEMP 99.1
[2018-01-28 00:20] VITALS: BP 121/43; PULSE 83; TEMP 97.9
[2018-01-28 05:55] LABS: BASO # 0.1 (0.0-0.2); BASO % 0.4 % (0.0-2.0); EOS # 0.5 (0.0-0.7); GRAN # 12.3 (1.4-6.5); GRAN % 80.6 % (42.2-75.2); HEMATOCRIT 40.3 % (37.0-47.0); HEMOGLOBIN 12.7 g/dl (12.5-16.0); LYMPH # 1.5 (1.2-3.4); LYMPH % 9.5 % (20.0-51.0); MEAN CELL VOLUME 86 fl (80.0-100.0); MEAN CORPUSCULAR HEMOGLOBIN 27 pg (27.0-31.0); MEAN CORPUSCULAR HGB CONC 32 g/dl (33.0-37.0); MONO # 0.9 (0.1-0.6); MONO % 5.8 % (1.7-9.3); PLATELET COUNT 130 K/mm3 (130-400); RED BLOOD COUNT 4.67 M/mm3 (4.10-5.30); REDCELL DISTRIBUTION WIDTH-CV 15.5 % (11.5-14.5)
[2018-01-28 06:12] LABS: ALBUMIN 3.9 gm/dL (3.5-5.0); BILIRUBIN,TOTAL 0.7 mg/dL (0.0-1.0); CALCIUM 10.1 mg/dL (8.4-10.2); CREATININE, serum 1.71 mg/dL (0.52-1.25); POTASSIUM 4.2 mmol/L (3.4-5.0)
[2018-01-28 08:26] VITALS: BP 103/43; PULSE 72; TEMP 99.3
[2018-01-28 11:22] VITALS: BP 105/54; PULSE 85; TEMP 98.7
[2018-01-28 15:39] VITALS: BP 107/68; PULSE 85; TEMP 98
[2018-01-28 20:10] VITALS: BP 102/52; PULSE 88; TEMP 99.1
[2018-01-28 23:40] VITALS: BP 104/50; PULSE 80; TEMP 98
[2018-01-29 06:15] LABS: BASO % 0.4 % (0.0-2.0); EOS # 0.4 (0.0-0.7); EOS % 5.5 % (0-4.0); GRAN # 5.4 (1.4-6.5); GRAN % 68.9 % (42.2-75.2); HEMOGLOBIN 11.1 g/dl (12.5-16.0); LYMPH # 1.3 (1.2-3.4); LYMPH % 16.8 % (20.0-51.0); MEAN CELL VOLUME 89 fl (80.0-100.0); MEAN CORPUSCULAR HEMOGLOBIN 28 pg (27.0-31.0); MEAN CORPUSCULAR HGB CONC 31 g/dl (33.0-37.0); MEAN PLATELET VOLUME 9.6 fl (7.4-10.4); MONO # 0.6 (0.1-0.6); MONO % 7.5 % (1.7-9.3); PLATELET COUNT 123 K/mm3 (130-400); RED BLOOD COUNT 4.02 M/mm3 (4.10-5.30); REDCELL DISTRIBUTION WIDTH-CV 15.4 % (11.5-14.5)
[2018-01-29 06:17] LABS: HEMATOCRIT 35.7 % (37.0-47.0)
[2018-01-29 06:51] LABS: CALCIUM 9.2 mg/dL (8.4-10.2); CREATININE, serum 1.58 mg/dL (0.52-1.25); POTASSIUM 3.8 mmol/L (3.4-5.0)
[2018-01-29 07:37] VITALS: BP 108/48; PULSE 74; TEMP 98.6
[2018-01-29] MEDS ORDERED: CIPRO 250MG TA250 MG PO (10:58)
[2018-01-29] MEDS ORDERED: RESTORIL 1515 MG/CAP PO (11:00)
[2018-01-29] MEDS ORDERED: NORCO 325 MG-101 TAB PO (11:00)
[2018-01-29] MEDS ORDERED: NOVOLOG FLEX100 U/ML SQ (11:01)
[2018-01-29] MEDS ORDERED: TRESIBA FL200 UNIT/1 SQ (11:01)
[2018-01-29] MEDS ORDERED: DESENEX21 TP (11:02)
[2018-01-29] MEDS ORDERED: NOVLOG SQ (11:02)
[2018-01-29] MEDS ORDERED: ROBITUSSIN100 MG/5 M PO (11:03)
[2018-01-29] MEDS ORDERED: MIRALAX PA17 GM/Dose PO (11:03)
[2018-01-29 11:21] VITALS: BP 92/43; PULSE 75; TEMP 98.8
[2018-01-29 14:04] VITALS: BP 92/43; PULSE 75; TEMP 98.8
== END 2018-01-29 16:27 | DRG 74 ==
LOC: COL.ER 03:37 → EU 08:13 → MEDICAL 08:13 → COL.ER 08:13 → MEDICAL 11:07 → IMCU 16:45 → MEDICAL 16:45 → EU 21:03 → IMCU 21:03 → EU 01-27 09:38 → MEDICAL 01-27 20:31 → COL.ER 01-28 08:13 → EU 01-28 11:07 → MEDICAL 01-28 11:07
PROVIDERS: Emergency Medicine; Hospitalist; Physician Assistant
DX: E11.42 Type 2 diabetes mellitus with diabetic polyneuropathy (principal); K86.1 Other chronic pancreatitis; N39.0 Urinary tract infection, site not specified; M79.661 Pain in right lower leg; E11.65 Type 2 diabetes mellitus with hyperglycemia; B96.1 Klebsiella pneumoniae [K. pneumoniae] as the cause of diseases classified elsewhere; I25.10 Atherosclerotic heart disease of native coronary artery without angina pectoris; I12.9 Hypertensive chronic kidney disease with stage 1 through stage 4 chronic kidney disease, or unspecified chronic kidney disease; E11.22 Type 2 diabetes mellitus with diabetic chronic kidney disease; N18.3 Chronic kidney disease, stage 3 (moderate); Z95.1 Presence of aortocoronary bypass graft; Z95.5 Presence of coronary angioplasty implant and graft; Z89.612 Acquired absence of left leg above knee; F31.9 Bipolar disorder, unspecified; Z79.01 Long term (current) use of anticoagulants; Z85.72 Personal history of non-Hodgkin lymphomas; L30.4 Erythema intertrigo; B37.2 Candidiasis of skin and nail; N31.9 Neuromuscular dysfunction of bladder, unspecified; G25.0 Essential tremor; Z79.4 Long term (current) use of insulin
CPT/HCPCS: OP; 99232-AI; G0378; G8978-GP; G8979-GP; J1644; J1815; J1956; J2270; J2405; J7030; Q9967

== ENCOUNTER 2018-02-02 23:31 | Emergency (ER) | payer MEDICARE, OTHER ==
[2008-12-27 17:53] VITALS: BP 144/90
[~2018-02-02] VITALS: Ht 157.5 cm; Wt 77.3 kg
[~2018-02-02 23:31] MED LIST changes: +CIPRO 250MG TA250 MG PO; +DESENEX21 TP; +INDERAL 20MG20 MG PO; +MIRALAX PA17 GM/Dose PO; +NITRO-DUR0.2 MG/PAT TD; +NORCO 325 MG-101 TAB PO; +PROBIOTIC GOLD1 EACH PO; +ROBITUSSIN100 MG/5 M PO
[2018-02-02 23:35] VITALS: TEMP 97.7
[2018-02-03 00:21] LABS: COLLECTION METHOD CATHETER
[2018-02-03 00:24] LABS: HEMATOCRIT 40.9 % (37.0-47.0); HEMOGLOBIN 13.1 g/dl (12.5-16.0); MEAN CELL VOLUME 85 fl (80.0-100.0); MEAN CORPUSCULAR HEMOGLOBIN 27 pg (27.0-31.0); MEAN CORPUSCULAR HGB CONC 32 g/dl (33.0-37.0); MEAN PLATELET VOLUME 8.8 fl (7.4-10.4); PLATELET COUNT 148 K/mm3 (130-400); RED BLOOD COUNT 4.81 M/mm3 (4.10-5.30); REDCELL DISTRIBUTION WIDTH-CV 15.3 % (11.5-14.5)
[2018-02-03 00:34] LABS: PH 6 (5-8); SQUAMOUS EPITHELIAL 0-2 /hpf; URINE APPEARANCE Hazy; URINE BACTERIA None Seen /hpf; URINE BILIRUBIN Negative (NEGATIVE); URINE BLOOD Negative (NEGATIVE); URINE COLOR Yellow; URINE GLUCOSE 3+ (NEGATIVE); URINE KETONE Negative (NEGATIVE); URINE LEUKOCYTE ESTERASE 1+ (NEGATIVE); URINE NITRATE Negative (NEGATIVE); URINE PROTEIN(semi-quant) 1+ (NEGATIVE); URINE UROBILINOGEN Negative (NEGATIVE)
[2018-02-03 00:35] LABS: ALANINE AMINOTRANSFERASE 32 U/L (9-52); ALBUMIN 4.2 gm/dL (3.5-5.0); ALKALINE PHOSPHATASE 207 U/L (50-136); ANION GAP 13 mmol/L (7-16); AST,SGOT 23 U/L (15-37); BILIRUBIN,TOTAL 0.3 mg/dL (0.0-1.0); BLOOD UREA NITROGEN 29 mg/dL (7-17); CALCIUM 10.1 mg/dL (8.4-10.2); CARBON DIOXIDE 28 mmol/L (22-30); CHLORIDE 95 mmol/L (98-107); CREATININE, serum 1.46 mg/dL (0.52-1.25); POTASSIUM 3.9 mmol/L (3.4-5.0); PROTHROMBIN TIME 11.6 SECONDS (9.7-12.8); SODIUM 136 mmol/L (137-145); TOTAL PROTEIN 7.1 gm/dL (6.4-8.2)
[2018-02-03 00:41] LABS: GLUCOSE 494 mg/dL (74-106)
[2018-02-03 00:47] LABS: TROPONIN-I < 0.012 ng/mL (0.000-0.034)
[2018-02-03 00:50] LABS: BAND 2 % (0-10); EOSINOPHIL 3 % (0-4); LYMPHOCYTE 20 % (20.0-51.0); NEUTROPHILS 70 % (42.0-75.2); TEAR DROP CELLS 1+
[2018-02-03] MEDS ORDERED: CREON 60000 U-11 ECC PO (00:50)
[2018-02-03 00:51] LABS: HYPOCHROMIA 1+; PLATELET ESTIMATE DECREASED (NORMAL); POLYCHROMASIA 1+
[2018-02-03] MEDS ORDERED: MACROBID 1100 MG/CAP PO (01:48)
[2018-02-03 03:20] VITALS: BP 100/70; PULSE 86
== END 2018-02-03 03:55 | disposition home or self-care (01) ==
LOC: COL.ER 23:31
PROVIDERS: Emergency Medicine
DX: E11.65 Type 2 diabetes mellitus with hyperglycemia (principal); I10 Essential (primary) hypertension; F31.9 Bipolar disorder, unspecified; N39.0 Urinary tract infection, site not specified; Z90.89 Acquired absence of other organs; Z90.710 Acquired absence of both cervix and uterus; Z95.5 Presence of coronary angioplasty implant and graft; Z79.4 Long term (current) use of insulin; Z79.02 Long term (current) use of antithrombotics/antiplatelets; Z79.82 Long term (current) use of aspirin
CPT/HCPCS: J1815; J7030

== ENCOUNTER → 2018-03-12 | Outpatient (CLI) | payer MEDICARE, OTHER ==
[~2018-03-12] MED LIST changes: +CREON 60000 U-11 ECC PO
== END ==
LOC: BHSO 13:31
DX: F41.0 Panic disorder [episodic paroxysmal anxiety] (principal)
CPT/HCPCS: G0463

== ENCOUNTER → 2018-04-17 | Outpatient (CLI) | payer MEDICARE, OTHER | LOC: BHSO 14:16 | DX: F31.81 Bipolar II disorder (principal) | CPT/HCPCS: G0463 ==

== ENCOUNTER → 2018-04-23 | Outpatient (CLI) | payer MEDICARE, OTHER, MEDICAID ==
[2018-04-23 11:26] LABS: COLLECTION METHOD CLEAN CATCH
[2018-04-23 11:47] LABS: MUCOUS Present /lpf; PH 5 (5-8); SQUAMOUS EPITHELIAL 0-2 /hpf; URINE APPEARANCE Clear; URINE BACTERIA Rare /hpf; URINE BILIRUBIN Negative (NEGATIVE); URINE BLOOD Negative (NEGATIVE); URINE COLOR Yellow; URINE GLUCOSE Negative (NEGATIVE); URINE KETONE Negative (NEGATIVE); URINE LEUKOCYTE ESTERASE 1+ (NEGATIVE); URINE NITRATE Negative (NEGATIVE); URINE PROTEIN(semi-quant) 1+ (NEGATIVE); URINE UROBILINOGEN Negative (NEGATIVE)
== END ==
LOC: ZLAB.STJ 10:28
PROVIDERS: Internal Medicine
DX: R33.9 Retention of urine, unspecified (principal)

== ENCOUNTER → 2018-04-24 | Outpatient (CLI) | payer MEDICARE, OTHER, MEDICAID ==
[2018-04-24 14:07] LABS: ALBUMIN 3.8 gm/dL (3.5-5.0); CALCIUM 10.3 mg/dL (8.4-10.2); CHOLESTEROL RISK RATIO 6.6; CREATININE, serum 1.41 mg/dL (0.52-1.25); PHOSPHOROUS 4.2 mg/dL (2.5-4.5); POTASSIUM 4.6 mmol/L (3.4-5.0)
[2018-04-24 14:36] LABS: THYROID STIMULATING HORMONE 1.2 uIU/mL (0.465-4.680)
[2018-04-24 23:51] LABS: URINE MICROALBUMIN 7.8 mg/dL (0.0-1.7)
== END ==
LOC: ZCOL.LAB 10:40 → ZLAB.STJ 10:40
DX: E11.65 Type 2 diabetes mellitus with hyperglycemia (principal); E03.9 Hypothyroidism, unspecified; I10 Essential (primary) hypertension; E55.9 Vitamin D deficiency, unspecified; Z79.4 Long term (current) use of insulin; E78.2 Mixed hyperlipidemia

== ENCOUNTER 2018-05-03 21:43 | Inpatient (IN) | payer MEDICARE, OTHER, MEDICAID ==
[~2018-05-03] VITALS: Ht 154.9 cm; Wt 79.3 kg
[~2018-05-03 21:43] MED LIST changes: +MAGNESIUM200 MG PO; +NEURONTIN600 MG/TAB PO
[2018-05-03] MEDS ORDERED: NOVOLOG 100U100 U/M1 SQ ×2 (22:11→22:12)
[2018-05-03] MEDS ORDERED: TOPROL XL 50MG50 MG PO (22:14)
[2018-05-03] MEDS ORDERED: DRISDOL50000 IU PO (22:15)
[2018-05-03] MEDS ORDERED: NOVOLOG FLEX100 U/ML (22:18)
[2018-05-03] MEDS ORDERED: TRESIBA FL200 UNIT/1 (22:20)
[2018-05-03 22:21] LABS: BASO # 0.1 (0.0-0.2); BASO % 0.8 % (0.0-2.0); EOS # 0.3 (0.0-0.7); EOS % 3.7 % (0-4.0); GRAN # 5.5 (1.4-6.5); GRAN % 63.4 % (42.2-75.2); HEMATOCRIT 41.1 % (37.0-47.0); HEMOGLOBIN 13.4 g/dl (12.5-16.0); LYMPH # 1.9 (1.2-3.4); LYMPH % 21.9 % (20.0-51.0); MEAN CELL VOLUME 85 fl (80.0-100.0); MEAN CORPUSCULAR HEMOGLOBIN 28 pg (27.0-31.0); MEAN CORPUSCULAR HGB CONC 33 g/dl (33.0-37.0); MEAN PLATELET VOLUME 8.4 fl (7.4-10.4); MONO # 0.8 (0.1-0.6); MONO % 9.2 % (1.7-9.3); PLATELET COUNT 142 K/mm3 (130-400); RED BLOOD COUNT 4.83 M/mm3 (4.10-5.30); REDCELL DISTRIBUTION WIDTH-CV 15.9 % (11.5-14.5)
[2018-05-03] MEDS ORDERED: ACTOS 15MG TAB15 MG PO (22:21)
[2018-05-03] MEDS ORDERED: PRISTIQ 50 MG T50 MG PO (22:21)
[2018-05-03 22:27] LABS: PROTHROMBIN TIME 11.3 SECONDS (9.7-12.8)
[2018-05-03 22:44] LABS: ALANINE AMINOTRANSFERASE 37 U/L (9-52); ALKALINE PHOSPHATASE 192 U/L (50-136); ANION GAP 11 mmol/L (7-16); AST,SGOT 40 U/L (15-37); BILIRUBIN,TOTAL 0.3 mg/dL (0.0-1.0); BLOOD UREA NITROGEN 45 mg/dL (7-17); CALCIUM 10.1 mg/dL (8.4-10.2); CARBON DIOXIDE 26 mmol/L (22-30); CHLORIDE 102 mmol/L (98-107); CREATININE, serum 1.37 mg/dL (0.52-1.25); GLUCOSE 153 mg/dL (74-106); LIPASE 147 U/L (23-300); POTASSIUM 3.9 mmol/L (3.4-5.0); SODIUM 139 mmol/L (137-145); TOTAL PROTEIN 6.9 gm/dL (6.4-8.2)
[2018-05-03 22:57] LABS: TROPONIN-I < 0.012 ng/mL (0.000-0.035)
[2018-05-04] VITALS (898 sets, daily range): BP systolic 81–115; BP diastolic 48–67; PULSE 68–75; TEMP 97–98; O2SAT 36–100
[2018-05-04] MEDS ORDERED: NYSTATIN POWDER30 GM TOP (02:06)
[2018-05-04 04:54] LABS: BASO # 0.1 (0.0-0.2); BASO % 0.6 % (0.0-2.0); EOS # 0.3 (0.0-0.7); EOS % 4.1 % (0-4.0); GRAN # 4.4 (1.4-6.5); GRAN % 56.1 % (42.2-75.2); HEMOGLOBIN 12.1 g/dl (12.5-16.0); LYMPH # 2.4 (1.2-3.4); LYMPH % 31.1 % (20.0-51.0); MEAN CELL VOLUME 87 fl (80.0-100.0); MEAN CORPUSCULAR HEMOGLOBIN 29 pg (27.0-31.0); MEAN CORPUSCULAR HGB CONC 33 g/dl (33.0-37.0); MONO # 0.6 (0.1-0.6); MONO % 7.1 % (1.7-9.3); PLATELET COUNT 128 K/mm3 (130-400); RED BLOOD COUNT 4.25 M/mm3 (4.10-5.30); REDCELL DISTRIBUTION WIDTH-CV 15.9 % (11.5-14.5)
[2018-05-04 04:56] LABS: HEMATOCRIT 36.8 % (37.0-47.0)
[2018-05-04 05:10] LABS: MAGNESIUM 1.8 mg/dL (1.6-2.3)
[2018-05-04 05:17] LABS: ALANINE AMINOTRANSFERASE 37 U/L (9-52); ALBUMIN 3.2 gm/dL (3.5-5.0); ALKALINE PHOSPHATASE 173 U/L (50-136); ANION GAP 7 mmol/L (7-16); AST,SGOT 31 U/L (15-37); BILIRUBIN,TOTAL 0.2 mg/dL (0.0-1.0); BLOOD UREA NITROGEN 43 mg/dL (7-17); CALCIUM 9.3 mg/dL (8.4-10.2); CARBON DIOXIDE 24 mmol/L (22-30); CHLORIDE 107 mmol/L (98-107); CHOLESTEROL 172 mg/dL (120-200); CHOLESTEROL RISK RATIO 7.1; CREATININE, serum 1.25 mg/dL (0.52-1.25); GLUCOSE 140 mg/dL (74-106); HDL CHOLESTEROL 24 mg/dL; POTASSIUM 4.1 mmol/L (3.4-5.0); SODIUM 138 mmol/L (137-145); TOTAL PROTEIN 5.9 gm/dL (6.4-8.2)
[2018-05-04 05:26] LABS: TRIGLYCERIDE 872 mg/dL; TROPONIN-I 6 HR POST INITIAL < 0.012 ng/mL (0.000-0.034)
--- NOTE | 2018-05-04 07:39 | NUR ---
Bedside report received from JAZMINE Mcmanus. Patient currently snoring loudly when we enter the room. She wakes briefly to acknowledge RNs for report, then falls back to sleep within seconds. Plan of care discussed. Care taken over at this time.
[2018-05-04 09:41] LABS: COLLECTION METHOD CATHETER
[2018-05-04 09:54] LABS: PH 6 (5-8); SQUAMOUS EPITHELIAL 0-2 /hpf; URINE APPEARANCE Clear; URINE BACTERIA None Seen /hpf; URINE BILIRUBIN Negative (NEGATIVE); URINE BLOOD Negative (NEGATIVE); URINE COLOR Yellow; URINE GLUCOSE Negative (NEGATIVE); URINE KETONE Negative (NEGATIVE); URINE LEUKOCYTE ESTERASE Trace (NEGATIVE); URINE NITRATE Negative (NEGATIVE); URINE PROTEIN(semi-quant) Negative (NEGATIVE); URINE RBC 0-2 /hpf; URINE UROBILINOGEN Negative (NEGATIVE)
--- NOTE | 2018-05-04 11:00 | NUR ---
NITRO AND HEPARIN GTT STOPPED PER DR. JOSE CRUZ BUSBY.
--- NOTE | 2018-05-04 12:46 | NUR ---
Plan to return to [facility]. MADIE's visited patient to discuss DC-plan. Patient reports that she resides at [facility]. Patient reports that Dr. Medina is PCP and [facility] obtains medications on her behalf. Patient indicated teressa Mai is her EMR contact DPOA and Guardian. Patient denies having any needs. Patient is believed to use a walking assisted device. Action: Nothing further, No addtional needs identified.
--- NOTE | 2018-05-04 15:00 | NUR ---
PATIENT C/O PERSISTENT CHEST PAIN. NITRO PATCH IN PLACE FOR SEVERAL HOURS. NORCO 10 OFFERED. WILL CONTINUE TO MONITOR.
--- NOTE | 2018-05-04 18:00 | NUR ---
MORPHINE GIVEN AFTER PERSISTENT C/O CHEST PAIN. WILL CONTINUE TO MONITOR.
[2018-05-05] VITALS (881 sets, daily range): BP systolic 95–147; BP diastolic 51–81; PULSE 62–86; TEMP 97.2–97.8; O2SAT 64–100
[2018-05-05 05:06] LABS: BASO % 0.6 % (0.0-2.0); EOS # 0.3 (0.0-0.7); EOS % 4.6 % (0-4.0); GRAN # 4.3 (1.4-6.5); GRAN % 61.8 % (42.2-75.2); HEMOGLOBIN 11.5 g/dl (12.5-16.0); LYMPH # 1.7 (1.2-3.4); MEAN CELL VOLUME 87 fl (80.0-100.0); MEAN CORPUSCULAR HEMOGLOBIN 28 pg (27.0-31.0); MEAN CORPUSCULAR HGB CONC 32 g/dl (33.0-37.0); MEAN PLATELET VOLUME 8.5 fl (7.4-10.4); MONO # 0.6 (0.1-0.6); PLATELET COUNT 109 K/mm3 (130-400); RED BLOOD COUNT 4.18 M/mm3 (4.10-5.30)
[2018-05-05 05:07] LABS: HEMATOCRIT 36.4 % (37.0-47.0)
[2018-05-05 05:16] LABS: ALBUMIN 3.2 gm/dL (3.5-5.0); BILIRUBIN,TOTAL 0.3 mg/dL (0.0-1.0); CALCIUM 9.6 mg/dL (8.4-10.2); CREATININE, serum 1.38 mg/dL (0.52-1.25); POTASSIUM 4.5 mmol/L (3.4-5.0); TOTAL PROTEIN 5.8 gm/dL (6.4-8.2)
--- NOTE | 2018-05-05 07:53 | NUR ---
PATIENT AWAKE IN ROOM. PATIENT IS NPO FOR A LEXISCAN TODAY. SHE WAS ASSISTED WITH GETTING UP TO THE BEDSIDE COMMODE. VSS. DENIES FURTHER REQUESTS
--- NOTE | 2018-05-05 10:04 | NUR ---
MADIE attended clinical rounding on patient. The plan is to dc today back to [facility]. MADIE faxed update and informed Rajesh. Will continue to follow.
--- NOTE | 2018-05-05 12:50 | NUR ---
PATIENT TAKEN DOWN FOR A LEXISCAN VIA WHEELCHAIR.
--- NOTE | 2018-05-05 16:26 | NUR ---
SW updated [facility] on patients status.
--- NOTE | 2018-05-05 19:13 | NUR ---
REPORT GIVEN TO JAZMINE BLAIR.
[2018-05-06] VITALS (330 sets, daily range): BP systolic 110–144; BP diastolic 52–89; PULSE 63–82; TEMP 97.2–98.5; O2SAT 63–100
[2018-05-06 05:21] LABS: BASO # 0.1 (0.0-0.2); BASO % 0.8 % (0.0-2.0); EOS # 0.4 (0.0-0.7); EOS % 5.5 % (0-4.0); GRAN # 4.4 (1.4-6.5); GRAN % 67.6 % (42.2-75.2); HEMATOCRIT 39.6 % (37.0-47.0); HEMOGLOBIN 12.6 g/dl (12.5-16.0); LYMPH # 1.2 (1.2-3.4); LYMPH % 18.6 % (20.0-51.0); MEAN CELL VOLUME 87 fl (80.0-100.0); MEAN CORPUSCULAR HEMOGLOBIN 28 pg (27.0-31.0); MEAN CORPUSCULAR HGB CONC 32 g/dl (33.0-37.0); MEAN PLATELET VOLUME 8.9 fl (7.4-10.4); MONO # 0.5 (0.1-0.6); MONO % 6.9 % (1.7-9.3); PLATELET COUNT 118 K/mm3 (130-400); RED BLOOD COUNT 4.56 M/mm3 (4.10-5.30); REDCELL DISTRIBUTION WIDTH-CV 16.1 % (11.5-14.5)
[2018-05-06 05:33] LABS: CALCIUM 10.2 mg/dL (8.4-10.2); CREATININE, serum 1.22 mg/dL (0.52-1.25); POTASSIUM 4.4 mmol/L (3.4-5.0)
--- NOTE | 2018-05-06 07:02 | NUR ---
Bedside report received from JAZMINE Mcmanus.
--- NOTE | 2018-05-06 08:10 | NUR ---
Assessment complete, patient resting quietly in bed, call light within reach.
--- NOTE | 2018-05-06 10:00 | NUR ---
Patient assisted to commode, AM care complete.
--- NOTE | 2018-05-06 10:07 | NUR ---
SW and SW student attended clinical rounding. Patient is having a Cardiac Cath today which will determine if she will dc today or tomorrow. SW will continue to follow.
--- NOTE | 2018-05-06 14:00 | NUR ---
To labor training manager via bed.
--- NOTE | 2018-05-06 14:21 | NUR ---
ALL MEDICATIONS GIVEN VIA VERBAL ORDER WITH MD. SEE MERGE FOR ADMIN TIMES.
--- NOTE | 2018-05-06 16:00 | NUR ---
Patient returned from labor relations consultant, dressing noted with bloody drainage on it, site remains soft without hematoma, safeguard in place, labor relations consultant staff at bedside holding manual pressure at this time. Patient instructed muliple times to keep head flat on pillow and right leg straight. Patient verbalized understanding. Call light within reach.
--- NOTE | 2018-05-06 18:00 | NUR ---
Patient resting quietly, assisted patient in ordering dinner, call light within reach.
--- NOTE | 2018-05-06 18:57 | NUR ---
Bedside report given to JAZMINE Gonzales.
--- NOTE | 2018-05-06 19:40 | NUR ---
Patient reporting 6/10 chest pain. Located in center chest and radiates to left shoulder. Reports that pain has remained unchanged since returning from labor specialist. Some shortness of air noted as well,although 99-100% on RA. Placed on 2L NC for comfort and SL nitro and prn norco administered. Upon re-assessment nitro had no effect on pain. Patient denied offer for 2nd dose. VS stable; will continue to monitor
[2018-05-07] VITALS (403 sets, daily range): BP systolic 109–110; BP diastolic 61–62; PULSE 66–70; TEMP 97.8–97.9; O2SAT 70–100
--- NOTE | 2018-05-07 01:20 | NUR ---
Patient had episode of emesis; approximatly 100 ml's of light brown fluid. Gave PRN SL zofran. Reported this was effective. Gave small amount of sprite and crackers after stomach had settled.
--- NOTE | 2018-05-07 02:00 | NUR ---
Assisted patient up to bedside commode to void. Able to transfer with one assist only. Will continue to monitor.
[2018-05-07 06:03] LABS: BASO % 0.5 % (0.0-2.0); EOS # 0.4 (0.0-0.7); EOS % 4.6 % (0-4.0); GRAN # 5.5 (1.4-6.5); GRAN % 71.1 % (42.2-75.2); HEMOGLOBIN 11.9 g/dl (12.5-16.0); LYMPH # 1.3 (1.2-3.4); LYMPH % 16.3 % (20.0-51.0); MEAN CELL VOLUME 85 fl (80.0-100.0); MEAN CORPUSCULAR HEMOGLOBIN 28 pg (27.0-31.0); MEAN CORPUSCULAR HGB CONC 33 g/dl (33.0-37.0); MEAN PLATELET VOLUME 8.6 fl (7.4-10.4); MONO # 0.5 (0.1-0.6); MONO % 6.7 % (1.7-9.3); PLATELET COUNT 111 K/mm3 (130-400); REDCELL DISTRIBUTION WIDTH-CV 15.9 % (11.5-14.5)
[2018-05-07 06:08] LABS: HEMATOCRIT 36.4 % (37.0-47.0)
[2018-05-07 06:22] LABS: CREATININE, serum 1.27 mg/dL (0.52-1.25); POTASSIUM 4.2 mmol/L (3.4-5.0)
--- NOTE | 2018-05-07 07:30 | NUR ---
Received bedside report from JAZMINE Gonzales. Patient resting in bed.
[2018-05-07] MEDS ORDERED: AMOXICILLIN 50500 MG PO (10:28)
[2018-05-07] MEDS ORDERED: BRILINTA90 MG PO (10:29)
[2018-05-07] MEDS ORDERED: ZESTRIL 5MG5 MG PO (10:29)
--- NOTE | 2018-05-07 10:30 | NUR ---
Dr. Ramirez visited patient. Plan is to discharge to [facility] at 1230. Patient is awake and participating in report.
--- NOTE | 2018-05-07 10:40 | NUR ---
Patient is dc back to [facility] for shelter care. SW informed Rajesh at [facility] and faxed an update. will set up transport time.
--- NOTE | 2018-05-07 11:17 | NUR ---
Transportation set up for 12:30. Patient to dc today to [facility]. Nurse informed.
--- NOTE | 2018-05-07 11:49 | NUR ---
Gave report to Janine at [facility] regarding the patient. Informed the nurse that the patient was stable and ready to discharge. Patient scheduled for pickup at 1230.
--- NOTE | 2018-05-07 13:04 | NUR ---
Patient discharged to [facility] via wheelchair. Discharge instructions and education was provided upon departure. Patient left with all belongings.
== END 2018-05-07 13:00 | DRG 246 ==
LOC: COL.ER 21:43 → ICU 23:35
PROVIDERS: Emergency Medicine; Hospitalist; Nurse Practitioner Family; ADMIT Hospitalist
PROC: 027137Z Dilation of Coronary Artery, Two Arteries with Four or More Drug-eluting Intraluminal Devices, Percutaneous Approach (ICD-10-PCS; principal; 2018-05-06)
PROC: B2111ZZ Fluoroscopy of Multiple Coronary Arteries using Low Osmolar Contrast (ICD-10-PCS; 2018-05-06)
PROC: B51B1ZZ Fluoroscopy of Right Lower Extremity Veins using Low Osmolar Contrast (ICD-10-PCS; 2018-05-06)
DX: T82.857A Stenosis of other cardiac prosthetic devices, implants and grafts, initial encounter (principal); I25.110 Atherosclerotic heart disease of native coronary artery with unstable angina pectoris; K86.1 Other chronic pancreatitis; I12.9 Hypertensive chronic kidney disease with stage 1 through stage 4 chronic kidney disease, or unspecified chronic kidney disease; I25.82 Chronic total occlusion of coronary artery; E11.22 Type 2 diabetes mellitus with diabetic chronic kidney disease; N18.9 Chronic kidney disease, unspecified; Z95.1 Presence of aortocoronary bypass graft; Z95.5 Presence of coronary angioplasty implant and graft; Z79.4 Long term (current) use of insulin; Z89.512 Acquired absence of left leg below knee; N31.9 Neuromuscular dysfunction of bladder, unspecified; E21.3 Hyperparathyroidism, unspecified; Z85.72 Personal history of non-Hodgkin lymphomas; F31.9 Bipolar disorder, unspecified; E11.42 Type 2 diabetes mellitus with diabetic polyneuropathy; Z90.5 Acquired absence of kidney
CPT/HCPCS: 99232-AI; 99233-AI; 99239; A9500; C1725; C1760; C1769; C1874; C1887; C1894; C9600; G0378; J0583; J1644; J1815; J2250; J2270; J2785; J3010; J7030; Q9967

== ENCOUNTER 2018-05-07 18:40 | Emergency (ER) | payer MEDICARE, OTHER, MEDICAID ==
[2008-12-27 17:53] VITALS: BP 144/90
[~2018-05-07] VITALS: Ht 154.9 cm; Wt 81.4 kg
[2018-05-07 18:44] VITALS: TEMP 97.2
[2018-05-07 19:07] LABS: BASO # 0.1 (0.0-0.2); BASO % 0.4 % (0.0-2.0); EOS # 0.3 (0.0-0.7); EOS % 2.1 % (0-4.0); GRAN # 11.9 (1.4-6.5); GRAN % 82.7 % (42.2-75.2); HEMATOCRIT 37.3 % (37.0-47.0); HEMOGLOBIN 12.2 g/dl (12.5-16.0); LYMPH # 1.2 (1.2-3.4); LYMPH % 8.6 % (20.0-51.0); MEAN CELL VOLUME 85 fl (80.0-100.0); MEAN CORPUSCULAR HEMOGLOBIN 28 pg (27.0-31.0); MEAN CORPUSCULAR HGB CONC 33 g/dl (33.0-37.0); MEAN PLATELET VOLUME 8.4 fl (7.4-10.4); MONO # 0.8 (0.1-0.6); MONO % 5.6 % (1.7-9.3); PLATELET COUNT 133 K/mm3 (130-400); REDCELL DISTRIBUTION WIDTH-CV 15.9 % (11.5-14.5)
[2018-05-07 19:12] LABS: INR 1.1 (0.8-3.0); PROTHROMBIN TIME 12.9 SECONDS (9.7-12.8)
[2018-05-07 19:15] LABS: PARTIAL THROMBOPLASTIN TIME 75.5 SECONDS (26.0-37.0)
[2018-05-07 19:18] LABS: ALBUMIN 3.8 gm/dL (3.5-5.0); BILIRUBIN,TOTAL 0.8 mg/dL (0.0-1.0); CALCIUM 9.8 mg/dL (8.4-10.2); CREATININE, serum 1.64 mg/dL (0.52-1.25); POTASSIUM 4.3 mmol/L (3.4-5.0); TOTAL PROTEIN 6.7 gm/dL (6.4-8.2)
[2018-05-07 19:32] LABS: TROPONIN-I 3.39 ng/mL (0.000-0.035)
[2018-05-07 19:36] LABS: COLLECTION METHOD CATHETER
[2018-05-07 19:47] LABS: PH 6 (5-8); URINE APPEARANCE Clear; URINE BACTERIA None Seen /hpf; URINE BILIRUBIN Negative (NEGATIVE); URINE BLOOD Negative (NEGATIVE); URINE COLOR Yellow; URINE GLUCOSE Negative (NEGATIVE); URINE KETONE Negative (NEGATIVE); URINE LEUKOCYTE ESTERASE 2+ (NEGATIVE); URINE NITRATE Negative (NEGATIVE); URINE PROTEIN(semi-quant) Negative (NEGATIVE); URINE RBC 0-2 /hpf; URINE UROBILINOGEN Negative (NEGATIVE)
[2018-05-07 20:54] VITALS: BP 98/65; PULSE 76
== END 2018-05-07 20:54 | disposition short-term general hospital (02) ==
LOC: COL.ER 18:40
PROVIDERS: Emergency Medicine
DX: J18.1 Lobar pneumonia, unspecified organism (principal); I21.4 Non-ST elevation (NSTEMI) myocardial infarction; I10 Essential (primary) hypertension; I25.10 Atherosclerotic heart disease of native coronary artery without angina pectoris; Z79.4 Long term (current) use of insulin; Z98.890 Other specified postprocedural states; Z79.82 Long term (current) use of aspirin
CPT/HCPCS: J1644; J2543; J3010; J3370; J7030; J7050

== ENCOUNTER → 2018-05-07 | Outpatient (REF) ==
[~2018-05-07] MED LIST changes: +ACTOS 15MG TAB15 MG PO; +AMOXICILLIN 50500 MG PO; +BRILINTA90 MG PO; +DRISDOL50000 IU PO; +NOVOLOG FLEX100 U/ML; +NYSTATIN POWDER30 GM TOP; +PRISTIQ 50 MG T50 MG PO; +TRESIBA FL200 UNIT/1; +ZESTRIL 5MG5 MG PO
[2018-05-07 15:18] LABS: CREATININE, serum 1.38 mg/dL (0.52-1.25); POTASSIUM 4.7 mmol/L (3.4-5.0)
[2018-05-07 15:45] LABS: BASO % 0.3 % (0.0-2.0); EOS # 0.3 (0.0-0.7); EOS % 2.4 % (0-4.0); GRAN # 11.1 (1.4-6.5); GRAN % 84.6 % (42.2-75.2); HEMATOCRIT 39.2 % (37.0-47.0); HEMOGLOBIN 12.7 g/dl (12.5-16.0); LYMPH # 0.8 (1.2-3.4); LYMPH % 6.1 % (20.0-51.0); MEAN CELL VOLUME 85 fl (80.0-100.0); MEAN CORPUSCULAR HEMOGLOBIN 27 pg (27.0-31.0); MEAN CORPUSCULAR HGB CONC 32 g/dl (33.0-37.0); MEAN PLATELET VOLUME 9.2 fl (7.4-10.4); MONO # 0.8 (0.1-0.6); MONO % 5.9 % (1.7-9.3); PLATELET COUNT 130 K/mm3 (130-400); RED BLOOD COUNT 4.64 M/mm3 (4.10-5.30)
== END ==
LOC: ZLAB.STJ 14:15
PROVIDERS: Internal Medicine
DX: J11.1 Influenza due to unidentified influenza virus with other respiratory manifestations (principal); R79.89 Other specified abnormal findings of blood chemistry; R68.89 Other general symptoms and signs

== ENCOUNTER → 2018-05-26 | Outpatient (REF) ==
[~2018-05-26] MED LIST changes: +LAMICTAL150 MG PO
[2018-05-26 09:06] LABS: COLLECTION METHOD CLEAN CATCH
[2018-05-26 09:32] LABS: MUCOUS Present /lpf; PH 5 (5-8); SQUAMOUS EPITHELIAL 0-2 /hpf; URINE APPEARANCE Clear; URINE BACTERIA Rare /hpf; URINE BILIRUBIN Negative (NEGATIVE); URINE BLOOD 1+ (NEGATIVE); URINE COLOR Yellow; URINE GLUCOSE Negative (NEGATIVE); URINE KETONE Negative (NEGATIVE); URINE LEUKOCYTE ESTERASE 1+ (NEGATIVE); URINE NITRATE Negative (NEGATIVE); URINE PROTEIN(semi-quant) Negative (NEGATIVE); URINE UROBILINOGEN Negative (NEGATIVE)
== END ==
LOC: ZLAB.STJ 09:03
PROVIDERS: Internal Medicine
DX: R30.0 Dysuria (principal)

== ENCOUNTER 2018-05-27 10:45 | Inpatient (IN) | payer MEDICARE, OTHER, MEDICAID ==
[2018-05-27] VITALS (302 sets, daily range): BP systolic 112–129; BP diastolic 63–84; PULSE 81–86; TEMP 98.2–98.7; O2SAT 77–100
[~2018-05-27] VITALS: Ht 154.9 cm; Wt 78.5 kg
[~2018-05-27 10:45] MED LIST changes: -LAMICTAL150 MG PO
[2018-05-27 11:08] LABS: BASO # 0.1 (0.0-0.2); BASO % 0.8 % (0.0-2.0); EOS # 0.3 (0.0-0.7); EOS % 4.1 % (0-4.0); GRAN # 5.4 (1.4-6.5); GRAN % 72.7 % (42.2-75.2); HEMATOCRIT 37.7 % (37.0-47.0); HEMOGLOBIN 12.3 g/dl (12.5-16.0); LYMPH # 1.2 (1.2-3.4); LYMPH % 15.6 % (20.0-51.0); MEAN CELL VOLUME 86 fl (80.0-100.0); MEAN CORPUSCULAR HEMOGLOBIN 28 pg (27.0-31.0); MEAN CORPUSCULAR HGB CONC 33 g/dl (33.0-37.0); MEAN PLATELET VOLUME 8.3 fl (7.4-10.4); MONO # 0.4 (0.1-0.6); MONO % 5.5 % (1.7-9.3); PLATELET COUNT 126 K/mm3 (130-400); RED BLOOD COUNT 4.39 M/mm3 (4.10-5.30); REDCELL DISTRIBUTION WIDTH-CV 16.7 % (11.5-14.5)
[2018-05-27 11:12] LABS: INR 1.1 (0.8-3.0); PROTHROMBIN TIME 12.3 SECONDS (9.7-12.8)
[2018-05-27 11:21] LABS: ALANINE AMINOTRANSFERASE 38 U/L (9-52); ALBUMIN 3.9 gm/dL (3.5-5.0); ALKALINE PHOSPHATASE 195 U/L (50-136); ANION GAP 11 mmol/L (7-16); AST,SGOT 39 U/L (15-37); BILIRUBIN,TOTAL 0.5 mg/dL (0.0-1.0); BLOOD UREA NITROGEN 30 mg/dL (7-17); CALCIUM 10.3 mg/dL (8.4-10.2); CARBON DIOXIDE 23 mmol/L (22-30); CHLORIDE 105 mmol/L (98-107); CREATININE, serum 1.23 mg/dL (0.52-1.25); GLUCOSE 350 mg/dL (74-106); LIPASE 264 U/L (23-300); POTASSIUM 3.7 mmol/L (3.4-5.0); SODIUM 139 mmol/L (137-145); TOTAL PROTEIN 6.6 gm/dL (6.4-8.2)
[2018-05-27 11:36] LABS: TROPONIN-I < 0.012 ng/mL (0.000-0.035)
[2018-05-27] MEDS ORDERED: LEVEMIR FLEX100 U/ML SQ (17:19)
--- NOTE | 2018-05-27 18:02 | NUR ---
Report recieved from JAZMINE Del Real
--- NOTE | 2018-05-27 18:37 | NUR ---
Pt arrived from ED on room air stating 6/10 chest pain, pt ambulated and pivoted with one leg onto ICU bed - "prostetic is in [place] getting repaired". Medications infusing through previously accessed Right Subclavian PowerPort - access site stable with no redness or swelling, VSS, AOx4, lungs clear with diminished bases, S1S2 heart sounds, 1+ bilateral pulses on R side, with 1+edema. L stump without skin breakdown or irratation. Abdomen soft with bowel sounds in all quadrants. Back side assessed, no skin breakdown or redness. Destiny BRANDT called in, updated on status and plan, she mentioned a missing psych med that did not get updated in her medrec from [facility].
--- NOTE | 2018-05-27 19:24 | NUR ---
Bedside report given JAZMINE Pena
[2018-05-27 19:58] LABS: PARTIAL THROMBOPLASTIN TIME 33.5 SECONDS (26.0-37.0)
--- NOTE | 2018-05-27 20:25 | NUR ---
CONTACTED HOSPITALIST JUANCHO REGARDING OF PT C/O CP RATING 6/10 DESCRIBED PRESSURE IN MIDDLE OF CHEST RADIATING TO JAW AND LEFT ARM; PT ASKED FOR PAIN MEDICATION, BUT NO PRN ORDERS FOR PAIN. PROVIDER ORDERED INCREASED TITRATION FOR NITRO GTT AND ORDERED PRN MORPHINE.
[2018-05-28] VITALS (529 sets, daily range): BP systolic 87–166; BP diastolic 53–82; PULSE 63–99; TEMP 97.7–98.5; O2SAT 53–100
[2018-05-28] MEDS ORDERED: LATUDA80 MG PO (00:19)
[2018-05-28] MEDS ORDERED: LAMICTAL150 MG PO (00:20)
[2018-05-28 04:30] LABS: HEMOGLOBIN 11.3 g/dl (12.5-16.0); MEAN CELL VOLUME 87 fl (80.0-100.0); MEAN CORPUSCULAR HEMOGLOBIN 28 pg (27.0-31.0); MEAN CORPUSCULAR HGB CONC 33 g/dl (33.0-37.0); MEAN PLATELET VOLUME 8.6 fl (7.4-10.4); PLATELET COUNT 116 K/mm3 (130-400); RED BLOOD COUNT 3.98 M/mm3 (4.10-5.30); REDCELL DISTRIBUTION WIDTH-CV 16.5 % (11.5-14.5)
[2018-05-28 04:31] LABS: HEMATOCRIT 34.7 % (37.0-47.0)
--- NOTE | 2018-05-28 04:37 | NUR ---
CONTACTED BY [employer] MAYA REGARDING CRITICAL HEPXA VALUE. HEPXA DISCONTIUED AND HOSPITALIST JUANCHO CONTACTED.
[2018-05-28 04:44] LABS: ALBUMIN 3.4 gm/dL (3.5-5.0); BILIRUBIN,TOTAL 0.3 mg/dL (0.0-1.0); CALCIUM 9.8 mg/dL (8.4-10.2); CREATININE, serum 1.23 mg/dL (0.52-1.25); POTASSIUM 3.3 mmol/L (3.4-5.0); TOTAL PROTEIN 6.1 gm/dL (6.4-8.2)
[2018-05-28 04:52] LABS: TROPONIN-I 0.02 ng/mL (0.000-0.035)
--- NOTE | 2018-05-28 07:00 | NUR ---
Heparin gtt stopped d/t 2-hour protocol ordered pause. Before pause heparin gtt infusing at 17.3 U/Kg/Hr instead of ordered 18 U/Kg/Hr - dose changed, then decreased by 300 U/hr per protocol. HeparinXA ordered for 6hrs. Nitrogycerine off for stress test. Bedside report recieved from JAZMINE Pena and present for aforementioned initial heparin gtt dosing change, and restart dose/rate. See JAZMINE Pena's IV-Drip Titrate at 0717 for current infusing rate. Pt resting, aroused by voice during report - AOx4, denies chest pain at this time, no questions about upcoming stress test. Call light and cell phone within reach
[2018-05-28 07:02] LABS: PARTIAL THROMBOPLASTIN TIME 62.2 SECONDS (26.0-37.0)
--- NOTE | 2018-05-28 08:08 | NUR ---
Lane moulton in room injecting, heparin paused disconected and reconnected after injection using aseptic technique
--- NOTE | 2018-05-28 08:48 | NUR ---
Pt off unit for LexiScan
--- NOTE | 2018-05-28 10:10 | NUR ---
eDstiny Mai ([phone]) called in to check on pt, updated on status. Not plannning on coming in to visit today but will call in later to day to check on LexiScan results
--- NOTE | 2018-05-28 10:20 | NUR ---
Pt has returned from [facility], no complaints
--- NOTE | 2018-05-28 11:52 | NUR ---
MADIE and SW student met with the patient and patient's friend, Lynne, to discuss discharge plan. The patient resides at [facility] for long-term care and the patient reports that she would like return to [facility] upon discharge. MADIE presented and explained the patient choice form. The patient verbalized understanding, signed the patient choice form, and she was provided a copy. MADIE contacted and confirmed acceptance back from [place] at [facility]. MADIE also completed the Re-admission Patient Interview with the patient and the patient's nurse, Alma Delia, at [facility]. MADIE to fax updates to [place] at [facility] and continue to follow.
[2018-05-29] VITALS (958 sets, daily range): BP systolic 91–156; BP diastolic 35–78; PULSE 77–101; TEMP 97.9–98.5; O2SAT 71–100
[2018-05-29 03:36] LABS: HEMOGLOBIN 11.5 g/dl (12.5-16.0); MEAN CELL VOLUME 87 fl (80.0-100.0); MEAN CORPUSCULAR HEMOGLOBIN 28 pg (27.0-31.0); MEAN CORPUSCULAR HGB CONC 32 g/dl (33.0-37.0); MEAN PLATELET VOLUME 8.8 fl (7.4-10.4); PLATELET COUNT 113 K/mm3 (130-400); RED BLOOD COUNT 4.08 M/mm3 (4.10-5.30); REDCELL DISTRIBUTION WIDTH-CV 16.9 % (11.5-14.5)
[2018-05-29 03:41] LABS: HEMATOCRIT 35.6 % (37.0-47.0); PROTHROMBIN TIME 11.5 SECONDS (9.7-12.8)
[2018-05-29 03:54] LABS: CALCIUM 10.5 mg/dL (8.4-10.2); CREATININE, serum 1.18 mg/dL (0.52-1.25); POTASSIUM 3.8 mmol/L (3.4-5.0)
--- NOTE | 2018-05-29 06:39 | NUR ---
CONTACTED BY [employer] [facility] FOR CRIT. PTT VALUE OF 202.
--- NOTE | 2018-05-29 07:01 | NUR ---
HEPARIN GTT STOPPED PER FOLLOWING CRITICAL PTT LAB VALUE.
--- NOTE | 2018-05-29 10:19 | NUR ---
SW attended clinical rounds. The patient is to have a heart cath today, 05/29. PT/OT were ordered. SW to fax updates to [place] at [facility] and continue to follow.
--- NOTE | 2018-05-29 10:47 | NUR ---
ALL MEDICATIONS GIVEN WITH VERBAL ORDER AND READBACK WITH MD. SEE MERGE FOR MEDICATION ADMIN TIMES. SEE MERGE FOR ALL RASS ASSESSMENTS DURING AND POST PROCEDURE.
--- NOTE | 2018-05-29 11:30 | NUR ---
Pt returned from greenhouse laborer, appears comfortable at this time, per report cath was clean with no changes noted from previous. Pulses present and extremety warm and dry. Right groin site C/D/I, no oozing or hematoma noted at this time. Will continue to monitor pt, groin site, and VS.
--- NOTE | 2018-05-29 18:54 | NUR ---
Pt currently lay 30 degrees remains in bed, VS and right groin site stable, small amount of serous sanguinouson noted on drsg and marked. Pt continues to c/o mild pain in her mid chest and recieved 1mg morphine for mild CP , denies any other pain or discomfort. Will hand off pt in shift report and continue rto monitor.
--- NOTE | 2018-05-29 19:27 | NUR ---
hand off given to JAZMINE Pena
[2018-05-30] VITALS (376 sets, daily range): BP systolic 119–126; BP diastolic 49–81; PULSE 81–87; TEMP 98.1–98.5; O2SAT 70–100
[2018-05-30 07:14] LABS: MEAN CELL VOLUME 88 fl (80.0-100.0); MEAN CORPUSCULAR HEMOGLOBIN 28 pg (27.0-31.0); MEAN CORPUSCULAR HGB CONC 32 g/dl (33.0-37.0); MEAN PLATELET VOLUME 9.1 fl (7.4-10.4); PLATELET COUNT 108 K/mm3 (130-400); RED BLOOD COUNT 3.87 M/mm3 (4.10-5.30)
[2018-05-30 07:22] LABS: HEMATOCRIT 34.2 % (37.0-47.0)
[2018-05-30 07:24] LABS: CREATININE, serum 1.13 mg/dL (0.52-1.25); POTASSIUM 4.1 mmol/L (3.4-5.0)
--- NOTE | 2018-05-30 12:45 | NUR ---
report given to JAZMINE couch.
[2018-05-30] MEDS ORDERED: PRESERVISION1 SGL PO (13:12)
[2018-05-30] MEDS ORDERED: MUCINEX 60600 MG/TA1 PO (13:15)
[2018-05-30] MEDS ORDERED: ACIDOPHILIS PO (13:17)
[2018-05-30] MEDS ORDERED: IPRATROPIUM BROM3 M1 IH (13:19)
[2018-05-30] MEDS ORDERED: ZYPREXA 5MG5 MG PO (13:25)
[2018-05-30] MEDS ORDERED: EFFEXOR 75M75 MG/TAB PO (13:28)
[2018-05-30] MEDS ORDERED: CREON 60000 U-11 ECC PO (13:29)
[2018-05-30] MEDS ORDERED: TESSALON P100 MG/CAP PO (13:30)
[2018-05-30] MEDS ORDERED: TYLENOL 8 HR PO (13:35)
[2018-05-30] MEDS ORDERED: TOPROL XL 25MG25 MG PO (13:44)
[2018-05-30] MEDS ORDERED: PRINIVIL2.5 MG PO (13:45)
[2018-05-30] MEDS ORDERED: GICOCKTAIL PO (13:46)
[2018-05-30] MEDS ORDERED: NORCO 325 MG-51 TAB PO (13:47)
--- NOTE | 2018-05-30 14:00 | NUR ---
The patient is to discharge today, 05/30, back to [facility] for a skilled stay. Transportation was set for 1445, via [facility]. SW informed the patient, patient's DPOA-HC (Destiny), and nurse. They were all in agreeance. SW and SW student presented and explained the IM form to the patient. The patient verbalized understanding, signed, and she was provided a copy. No additional needs at this time.
--- NOTE | 2018-05-30 14:13 | NUR ---
REPORT GIVEN TO NURSE AT [facility].
--- NOTE | 2018-05-30 15:06 | NUR ---
[facility]IA [facility] HERE TO TAKE PATIENT BACK TO CORRECTION. PACKET OF DISCHARGE INSTRUCTIONS WELL HER MEDICATIONS WERE SENT WITH HER.
== END 2018-05-30 15:05 | DRG 287 ==
LOC: COL.ER 10:45 → ICU 16:20
PROVIDERS: Emergency Medicine
PROC: B2111ZZ Fluoroscopy of Multiple Coronary Arteries using Low Osmolar Contrast (ICD-10-PCS; principal; 2018-05-29)
DX: R07.89 Other chest pain (principal); I25.10 Atherosclerotic heart disease of native coronary artery without angina pectoris; I25.82 Chronic total occlusion of coronary artery; I10 Essential (primary) hypertension; E11.9 Type 2 diabetes mellitus without complications; E78.5 Hyperlipidemia, unspecified; Z95.5 Presence of coronary angioplasty implant and graft; E03.9 Hypothyroidism, unspecified; Z89.512 Acquired absence of left leg below knee; Z79.4 Long term (current) use of insulin; E66.9 Obesity, unspecified; Z68.32 Body mass index [BMI] 32.0-32.9, adult; F31.9 Bipolar disorder, unspecified; Z85.72 Personal history of non-Hodgkin lymphomas; G89.29 Other chronic pain; F11.10 Opioid abuse, uncomplicated
CPT/HCPCS: 99223-AI; 99232-AI; 99233-AI; 99239; A9500; C1760; C1894; J1644; J1815; J2250; J2270; J2405; J2785; J3010; J3480; J7030; Q9967

== ENCOUNTER → 2018-06-17 | Outpatient (CLI) | payer MEDICARE, OTHER ==
[~2018-06-17] MED LIST changes: +ACIDOPHILIS PO; +EFFEXOR 75M75 MG/TAB PO; +GICOCKTAIL PO; +IPRATROPIUM BROM3 M1 IH; +LAMICTAL150 MG PO; +MUCINEX 60600 MG/TA1 PO; +NORCO 325 MG-51 TAB PO; +ROZEREM 8MG TABL8 MG PO; +SINEQUAN 5050 MG/CAP PO; +TESSALON P100 MG/CAP PO; +TYLENOL 8 HR PO; +ZYPREXA 5MG5 MG PO
== END ==
LOC: BHSO 11:29
DX: F31.32 Bipolar disorder, current episode depressed, moderate (principal)
CPT/HCPCS: G0463

== ENCOUNTER → 2018-06-18 | Outpatient (REF) ==
[2018-06-18 13:52] LABS: BASO # 0.1 (0.0-0.2); BASO % 1.1 % (0.0-2.0); EOS # 0.3 (0.0-0.7); EOS % 4.6 % (0-4.0); GRAN # 4.3 (1.4-6.5); GRAN % 65.9 % (42.2-75.2); HEMATOCRIT 42.8 % (37.0-47.0); HEMOGLOBIN 13.8 g/dl (12.5-16.0); LYMPH # 1.2 (1.2-3.4); MEAN CELL VOLUME 87 fl (80.0-100.0); MEAN CORPUSCULAR HEMOGLOBIN 28 pg (27.0-31.0); MEAN CORPUSCULAR HGB CONC 32 g/dl (33.0-37.0); MEAN PLATELET VOLUME 9.5 fl (7.4-10.4); MONO # 0.6 (0.1-0.6); MONO % 8.8 % (1.7-9.3); PLATELET COUNT 155 K/mm3 (130-400); RED BLOOD COUNT 4.91 M/mm3 (4.10-5.30); REDCELL DISTRIBUTION WIDTH-CV 16.8 % (11.5-14.5)
[2018-06-18 14:18] LABS: ALBUMIN 4.2 gm/dL (3.5-5.0); BILIRUBIN,TOTAL 0.5 mg/dL (0.0-1.0); CALCIUM 10.9 mg/dL (8.4-10.2); CREATININE, serum 1.08 mg/dL (0.52-1.25); TOTAL PROTEIN 6.9 gm/dL (6.4-8.2)
[2018-06-18 14:27] LABS: POTASSIUM 5.9 mmol/L (3.4-5.0)
== END ==
LOC: ZLAB.STJ 13:42
PROVIDERS: Physician Assistant
DX: E11.40 Type 2 diabetes mellitus with diabetic neuropathy, unspecified (principal); E11.29 Type 2 diabetes mellitus with other diabetic kidney complication

== ENCOUNTER 2018-06-20 13:57 | Day surgery (SDC) | payer MEDICARE, OTHER ==
[2008-12-27 17:53] VITALS: BP 144/90
[~2018-06-20] VITALS: Ht 154.9 cm; Wt 75.5 kg
[2018-06-20] VITALS (9 sets, daily range): BP systolic 107–128; BP diastolic 62–89; PULSE 72–90; TEMP 98.1–98.3
[~2018-06-20 13:57] MED LIST changes: -ROZEREM 8MG TABL8 MG PO; -SINEQUAN 5050 MG/CAP PO
[2018-06-20] MEDS ORDERED: TESSALON P100 MG/CAP PO (15:41)
[2018-06-20] MEDS ORDERED: NITROSTAT0.4 MG/TAB SL (15:41)
[2018-06-20] MEDS ORDERED: SINEQUAN 5050 MG/CAP PO (15:42)
[2018-06-20] MEDS ORDERED: ROZEREM 8MG TABL8 MG PO (15:43)
[2018-06-20] MEDS ORDERED: PRISTIQ 50 MG T50 MG PO (15:44)
[2018-06-20] MEDS ORDERED: EFFEXOR-XR150 MG PO (15:46)
--- NOTE | 2018-06-20 20:30 | NUR ---
Pt. has met discharge criteria. Vitals stable. Pt. remains a&XO3. Discharge paper work given to pt. Pt. voices understanding of education. Port to rt. chest deaccessed without complications. Gauze and tape applied to site. Pt. getting dressed and waiting for ride.
--- NOTE | 2018-06-20 21:00 | NUR ---
Pt.'s ride has arrived. Pt. escorted out by staff via wheelchair.
== END 2018-06-20 21:00 ==
LOC: SDCO 13:57 → SURG 17:04 → SDCO 21:00
DX: K31.5 Obstruction of duodenum (principal); K83.8 Other specified diseases of biliary tract; I25.2 Old myocardial infarction; E78.00 Pure hypercholesterolemia, unspecified; F32.9 Major depressive disorder, single episode, unspecified; K21.9 Gastro-esophageal reflux disease without esophagitis; E11.40 Type 2 diabetes mellitus with diabetic neuropathy, unspecified; I27.20 Pulmonary hypertension, unspecified; D50.9 Iron deficiency anemia, unspecified; M10.9 Gout, unspecified; E03.9 Hypothyroidism, unspecified; Z90.710 Acquired absence of both cervix and uterus; Z90.5 Acquired absence of kidney; Z95.5 Presence of coronary angioplasty implant and graft; Z88.1 Allergy status to other antibiotic agents; Z88.8 Allergy status to other drugs, medicaments and biological substances; Z88.2 Allergy status to sulfonamides; Z79.82 Long term (current) use of aspirin; Z79.02 Long term (current) use of antithrombotics/antiplatelets; Z83.79 Family history of other diseases of the digestive system; Z90.49 Acquired absence of other specified parts of digestive tract; Z79.4 Long term (current) use of insulin; Z89.512 Acquired absence of left leg below knee; Z89.612 Acquired absence of left leg above knee; Z95.1 Presence of aortocoronary bypass graft
CPT/HCPCS: OP; C1769; C2625; J2250; J2704; J3010

== ENCOUNTER → 2018-07-16 | Outpatient (CLI) | payer MEDICARE, OTHER ==
[~2018-07-16] MED LIST changes: +ROZEREM 8MG TABL8 MG PO; +SINEQUAN 5050 MG/CAP PO
== END ==
LOC: BHSO 10:53
DX: F31.81 Bipolar II disorder (principal)
CPT/HCPCS: G0463

== ENCOUNTER → 2018-07-30 | Outpatient (CLI) | payer MEDICARE, OTHER ==
[2018-07-30 16:57] LABS: CALCIUM 11.5 mg/dL (8.4-10.2); CREATININE, serum 1.24 (0.52-1.25)
== END ==
LOC: ZLAB.STJ 13:48
PROVIDERS: Internal Medicine
DX: E21.3 Hyperparathyroidism, unspecified (principal); R79.89 Other specified abnormal findings of blood chemistry

== ENCOUNTER 2018-08-25 00:16 | Observation (INO) | payer MEDICARE, OTHER ==
[~2018-08-25] VITALS: Wt 76.0 kg
[~2018-08-25 00:16] MED LIST changes: -CREON 120000 U-1 ECC PO; -LIPITOR 40MG TA40 MG PO; +LIPITOR 80MG80 MG PO; -NEURONTIN600 MG/TAB PO
[2018-08-25 01:10] LABS: BASO # 0.1 (0.0-0.2); BASO % 0.7 % (0.0-2.0); EOS # 0.2 (0.0-0.7); EOS % 2.8 % (0-4.0); GRAN # 5.3 (1.4-6.5); GRAN % 70.5 % (42.2-75.2); HEMATOCRIT 39.1 % (37.0-47.0); HEMOGLOBIN 12.5 g/dl (12.5-16.0); LYMPH # 1.2 (1.2-3.4); MEAN CELL VOLUME 86 fl (80.0-100.0); MEAN CORPUSCULAR HEMOGLOBIN 28 pg (27.0-31.0); MEAN CORPUSCULAR HGB CONC 32 g/dl (33.0-37.0); MEAN PLATELET VOLUME 9.5 fl (7.4-10.4); MONO # 0.7 (0.1-0.6); MONO % 8.8 % (1.7-9.3); PLATELET COUNT 141 K/mm3 (130-400); RED BLOOD COUNT 4.53 M/mm3 (4.10-5.30); REDCELL DISTRIBUTION WIDTH-CV 14.8 % (11.5-14.5)
[2018-08-25 01:20] LABS: ALANINE AMINOTRANSFERASE 21 U/L (9-52); ALBUMIN 3.7 gm/dL (3.5-5.0); ALKALINE PHOSPHATASE 256 U/L (50-136); ANION GAP 15 mmol/L (7-16); AST,SGOT 36 U/L (15-37); BILIRUBIN,TOTAL 0.4 mg/dL (0.0-1.0); BLOOD UREA NITROGEN 25 mg/dL (7-17); CALCIUM 10.3 mg/dL (8.4-10.2); CARBON DIOXIDE 23 mmol/L (22-30); CHLORIDE 100 mmol/L (98-107); CREATININE, serum 1.46 (0.52-1.25); POTASSIUM 3.9 mmol/L (3.4-5.0); SODIUM 138 mmol/L (137-145); TOTAL PROTEIN 6.6 gm/dL (6.4-8.2)
[2018-08-25 01:22] LABS: GLUCOSE 442 mg/dL (74-106)
[2018-08-25 01:28] LABS: INR 0.9 (0.8-3.0)
[2018-08-25 01:33] LABS: TROPONIN-I < 0.012 ng/mL (0.000-0.035)
[2018-08-25 01:50] LABS: COLLECTION METHOD CATHETER
[2018-08-25 01:57] LABS: PH 6 (5-8); SQUAMOUS EPITHELIAL 0-2 /hpf; URINE APPEARANCE Clear; URINE BACTERIA Rare /hpf; URINE BILIRUBIN Negative (NEGATIVE); URINE BLOOD Negative (NEGATIVE); URINE COLOR Straw; URINE GLUCOSE 3+ (NEGATIVE); URINE KETONE Negative (NEGATIVE); URINE LEUKOCYTE ESTERASE Negative (NEGATIVE); URINE NITRATE Negative (NEGATIVE); URINE PROTEIN(semi-quant) Negative (NEGATIVE); URINE RBC 0-2 /hpf; URINE UROBILINOGEN Negative (NEGATIVE)
[2018-08-25] MEDS ORDERED: SYSTANE BALANCE10 M1 OU ×2 (03:42→03:44)
[2018-08-25] MEDS ORDERED: MYLANTA 150 ML150 M1 (03:44)
[2018-08-25] MEDS ORDERED: COGENTIN 1MG1 MG/TAB PO (03:45)
[2018-08-25] MEDS ORDERED: ATARAX50 MG PO (03:46)
[2018-08-25] MEDS ORDERED: CARAFATE 1GM1 G PO (03:46)
[2018-08-25] MEDS ORDERED: TRICOR 48MG48 MG PO (03:47)
[2018-08-25] MEDS ORDERED: MACROBID 1100 MG/CAP PO (04:04)
[2018-08-25 05:17] VITALS: BP 131/54; PULSE 89; TEMP 98.5
--- NOTE | 2018-08-25 06:11 | NUR ---
Pt. arrived to the floor via stretcher. Pt. assisted to bed 1 assist, slide transfer. Pt. is A&OX3, assessment complete. PORT to rt. chest accessed in ED. INT to lt. wrist patent. Pt. reports chest pain at a 6, pt. also dozes off while doing addmission assessment. Pt. denies further needs.
[2018-08-25 07:35] LABS: CHOLESTEROL RISK RATIO 5.8; MAGNESIUM 1.7 mg/dL (1.6-2.3)
[2018-08-25] MEDS ORDERED: NOVOLOG 100U100 U/M1 SQ (07:47)
[2018-08-25] MEDS ORDERED: LEVEMIR100 U/ML SQ (07:47)
[2018-08-25 07:48] LABS: TROPONIN-I 0.036 ng/mL (0.000-0.035)
[2018-08-25 08:05] VITALS: BP 116/39; PULSE 91; TEMP 97.6
--- NOTE | 2018-08-25 09:00 | NUR ---
Patient alert and oriented, answers questions appropriately. See assessment. Heart tones strong and even. Lungs CTA. Abdomen soft, non tender, non distended. Bowel sounds hypoactive x4 quads. +Flatus. C/o nausea and vomiting, emesis brown. C/o generalized pain 8/10. No other c/o at this time.
[2018-08-25 12:05] VITALS: BP 101/59; PULSE 95; TEMP 97.6
--- NOTE | 2018-08-25 13:28 | NUR ---
SW met with patient to discuss discharge planning. Patient is a usp care resident at [facility]. Patient reports she plans to return there upon discharge. SW presented choice form. Patient signed. Patient's PCP is Dr Medina and [facility] provides all prescribed medications. Patient uses a cane/walker at [facility] but no other DME is reported. Patient reports her DPOA shoudl be in the EMR. SW will fax updates to [facility]. MADIE will follow as needed.
[2018-08-25 16:44] VITALS: BP 114/68; PULSE 93; TEMP 98.8
[2018-08-25 19:30] VITALS: BP 105/57; PULSE 95; TEMP 98.5
[2018-08-25 23:26] VITALS: BP 109/83; PULSE 78; TEMP 97.9
[2018-08-26] VITALS (7 sets, daily range): BP systolic 115–132; BP diastolic 52–75; PULSE 71–84; TEMP 97.3–98.7
--- NOTE | 2018-08-26 05:59 | NUR ---
Pt. slept off and on through the night. Pt. remains A&OX3. Pt. has been very somulent through the night. Pt. will request pain medication and fall asleep during conversations. Have only given 1 mg of morphine for pain because of pt. be so somulent after pain medication. This nurse gave Tylenol and GI cocktail at bedtime. Pt. slept well for approximately 4 hrs. When the pt. called for pain meds. Pt. reported at that time that that combination did not help her pain but pt. was sleeping everytime this nurse entered the room between that time. Pt. currently resting quietly with eyes closed, respirations are equal and unlabored. Pt. not disturbed at this time.
--- NOTE | 2018-08-26 07:30 | NUR ---
PATIENT VERY DROWSY THIS AM AND FALLS BACK TO SLEEP, SNORING WHILE NURSING IS TALKING AND ASSESSMING HER. LEGAL SECRETARY REPORTS PATIENT WAS ASKING FOR MORPHINE AND WOULD FALL BACK TO SLEEP BEFORE EVEN FINISHING ASKING FOR MORE PAIN MEDS. NO CURRENT C/O CHEST PAIN. PATIENT SOUND ASLEEP. HEAD TO TOE ASSESSMENT COMPLETE. VSS. TELE INPLACE. HEART SOUNDS REGULAR IN THE 70'S. PATIENT HAS HX OF LLE AMPUTATION, FINGER AMPUTATIONS TO [facility]. PATIENT IS A FREQUENT PATIENT HERE CURRENTLY LIVING IN [facility]. AM BS WAS 150. BREAKFAST ORDERED. AM MEDS GIVEN. PATIENT SLEEPING AGAIN.
[2018-08-26 08:32] LABS: BASO % 0.2 % (0.0-2.0); EOS # 0.2 (0.0-0.7); EOS % 3.4 % (0-4.0); GRAN % 68.3 % (42.2-75.2); HEMATOCRIT 33.6 % (37.0-47.0); HEMOGLOBIN 10.5 g/dl (12.5-16.0); LYMPH # 1.1 (1.2-3.4); LYMPH % 19.6 % (20.0-51.0); MEAN CELL VOLUME 88 fl (80.0-100.0); MEAN CORPUSCULAR HEMOGLOBIN 27 pg (27.0-31.0); MEAN CORPUSCULAR HGB CONC 31 g/dl (33.0-37.0); MEAN PLATELET VOLUME 8.6 fl (7.4-10.4); MONO # 0.4 (0.1-0.6); MONO % 7.6 % (1.7-9.3); PLATELET COUNT 114 K/mm3 (130-400); RED BLOOD COUNT 3.84 M/mm3 (4.10-5.30); REDCELL DISTRIBUTION WIDTH-CV 15.1 % (11.5-14.5)
[2018-08-26 08:46] LABS: CALCIUM 9.3 mg/dL (8.4-10.2); CREATININE, serum 1.27 (0.52-1.25); POTASSIUM 3.8 mmol/L (3.4-5.0)
--- NOTE | 2018-08-26 10:09 | NUR ---
Initial visit; Patient thanked Rice Drier Operator for looking in on her and states her Taoist family is aware of her hospitalization. Rice Drier Operator will keep Susan in her prayers per request.
--- NOTE | 2018-08-26 11:45 | NUR ---
PATIENT CALLED OUT REQUESTING SOMETHING PAIN. PATIENT REPORTS CHEST PAIN BUT POINTS TO UPPER GASTRIC AREA. PATIENT ALSO C/O NAUSEA. GAVE PRN GI COCKTAIL & TYLENOL, TWO TABS. CALLED HOSPITALIST
--- NOTE | 2018-08-26 11:50 | NUR ---
PATIENT SITTING UP IN BED. NO CRYING OR SHAKING NOTED. DONOR SERVICES SPECIALIST OBTAINING NOON BLOOD SUGAR.
--- NOTE | 2018-08-26 12:45 | NUR ---
PATIENT IS RESTING IN BED, NOT CRYING BUT REPORTS HER "CHEST PAIN" IS NOT ANY BETTER. CALLED HOSPITALIST WHO HAS VISITED WITH CARDS. GAVE PRN MORPHINE 0.5MG. DOSE DECREASED DUE TO SIGNIFICANT SEDATION EFFECTS. REQUESTED MEDICAL RECORDS FROM GI. CALLED OFFICE. PATIENT TO HAVE LEXISCAN IN AM.
--- NOTE | 2018-08-26 16:56 | NUR ---
PATIENT VERY DROWSY. BS WAS ONLY 52. GAVE ORANGE JUICE. PATIENT ASSISTED TO ORDER SUPPER. PATIENT FALLING BACK TO SLEEP. WILL MONITOR.
--- NOTE | 2018-08-26 20:15 | NUR ---
Shift assessment complete. States, pain 7/10 in sternum/chest. Prn pain medication given. Pt had picked scab on left index finger, small amount of bleeding. Will continue to monitor. Denies further needs at this time. Will continue to monitor.
[2018-08-27] VITALS (9 sets, daily range): BP systolic 115–152; BP diastolic 48–71; PULSE 80–125; TEMP 98.5–99
--- NOTE | 2018-08-27 05:38 | NUR ---
Patient in bed, resting. Labs drawn from port, per protocol. Patient tolerated well. States pain 4/10 after prn pain medication. Denies further needs, will continue to monitor.
[2018-08-27 06:31] LABS: BASO % 0.5 % (0.0-2.0); EOS # 0.3 (0.0-0.7); EOS % 4.4 % (0-4.0); GRAN # 4.1 (1.4-6.5); GRAN % 67.1 % (42.2-75.2); HEMOGLOBIN 10.8 g/dl (12.5-16.0); LYMPH # 1.1 (1.2-3.4); LYMPH % 18.5 % (20.0-51.0); MEAN CELL VOLUME 87 fl (80.0-100.0); MEAN CORPUSCULAR HEMOGLOBIN 27 pg (27.0-31.0); MEAN CORPUSCULAR HGB CONC 31 g/dl (33.0-37.0); MEAN PLATELET VOLUME 9.1 fl (7.4-10.4); MONO # 0.5 (0.1-0.6); MONO % 8.7 % (1.7-9.3); PLATELET COUNT 143 K/mm3 (130-400); RED BLOOD COUNT 3.98 M/mm3 (4.10-5.30); REDCELL DISTRIBUTION WIDTH-CV 14.9 % (11.5-14.5)
[2018-08-27 06:38] LABS: ALBUMIN 3.2 gm/dL (3.5-5.0); BILIRUBIN,TOTAL 0.3 mg/dL (0.0-1.0); CALCIUM 9.7 mg/dL (8.4-10.2); CREATININE, serum 1.18 (0.52-1.25); POTASSIUM 3.7 mmol/L (3.4-5.0); TOTAL PROTEIN 5.7 gm/dL (6.4-8.2)
--- NOTE | 2018-08-27 07:00 | NUR ---
Pt resting with eyes closed when entering room, awakens with entry, AOx3, chest pain present at 5/10 "the chest pain kept me up most of the night". Educated on plan of care starting with [facility] scan. Pt is a 1 assist to commode. Call light in reach
[2018-08-27 07:11] LABS: HEMATOCRIT 34.5 % (37.0-47.0)
--- NOTE | 2018-08-27 07:47 | NUR ---
NucMed tech here injecting for LexiScan
--- NOTE | 2018-08-27 10:20 | NUR ---
Pt arrived back to room from [facility]. Pt tolerated scan well.
--- NOTE | 2018-08-27 21:00 | NUR ---
PT RESTING IN BED A+OX4. REPORTS MINIMAL PAIN. NO NAUSEA. NO NEEDS AT THIS TIME
[2018-08-28] VITALS (7 sets, daily range): BP systolic 124–1154; BP diastolic 66–80; PULSE 72–87; TEMP 97.5–98.5
[2018-08-28 08:34] LABS: CALCIUM 10.3 mg/dL (8.4-10.2); CREATININE, serum 1.16 (0.52-1.25)
--- NOTE | 2018-08-28 09:42 | NUR ---
Patient will discharge back to LTC at [facility]. SW faxed discharge orders and will arrange transportation.
--- NOTE | 2018-08-28 11:00 | NUR ---
Patient has not been wanting to do much this am. She was refusing to take any of her medications until she ordered breakfast. Attempted several times to order food for her. She stated she came in for this pain in her chest and abdomen but it is not better. Explained the doctor's have run tests and feel she is ready for discharge. She has an appointment already scheduled with GI for follow up for abdomen pain. No other changes at this time. Call light within reach. Patient will be discharging this afternoon back to [facility].
--- NOTE | 2018-08-28 17:14 | NUR ---
pt picked up by transportation to [facility].
== END 2018-08-28 16:30 ==
LOC: COL.ER 00:16 → SURG 04:27
PROVIDERS: Emergency Medicine; Nurse Practitioner Family; Physician Assistant; ADMIT Internal Medicine Pulmonary Disease
DX: R07.89 Other chest pain (principal); I25.10 Atherosclerotic heart disease of native coronary artery without angina pectoris; Z95.5 Presence of coronary angioplasty implant and graft; Z95.1 Presence of aortocoronary bypass graft; I12.9 Hypertensive chronic kidney disease with stage 1 through stage 4 chronic kidney disease, or unspecified chronic kidney disease; E11.22 Type 2 diabetes mellitus with diabetic chronic kidney disease; N18.9 Chronic kidney disease, unspecified; N31.8 Other neuromuscular dysfunction of bladder; E03.9 Hypothyroidism, unspecified; M86.9 Osteomyelitis, unspecified; M10.9 Gout, unspecified; K21.9 Gastro-esophageal reflux disease without esophagitis; K85.90 Acute pancreatitis without necrosis or infection, unspecified; F31.9 Bipolar disorder, unspecified; Z79.4 Long term (current) use of insulin; E83.52 Hypercalcemia; N39.0 Urinary tract infection, site not specified; Z90.5 Acquired absence of kidney; K76.0 Fatty (change of) liver, not elsewhere classified; Z85.72 Personal history of non-Hodgkin lymphomas; Z90.49 Acquired absence of other specified parts of digestive tract; Z90.710 Acquired absence of both cervix and uterus; Z89.512 Acquired absence of left leg below knee; I25.2 Old myocardial infarction; Z79.82 Long term (current) use of aspirin
CPT/HCPCS: 99232-AI; A9500; G0378; J1644; J1815; J2270; J2405; J2785; J3010; J7030

== ENCOUNTER → 2018-09-19 | Day surgery (SDC) | payer MEDICARE, OTHER, MEDICAID ==
[2008-12-27 17:53] VITALS: BP 144/90
[~2018-09-19] MED LIST changes: +CARAFATE 1GM1 G PO; +COGENTIN 1MG1 MG/TAB PO; +LYRICA 50MG CAP50 MG PO; +MAALOX ADVANCE148 ML PO; +RANEXA 500MG T500 MG PO; +SYSTANE BALANCE10 M1 OU; +TRICOR 48MG48 MG PO
--- NOTE | 2018-09-19 08:41 | NUR ---
Patient wheeled back to [facility]. Alert and oriented. Vital signs stable. Blood sugar 415. Anestesia and MD made aware. State that they will unable to proceed d/t increased blood sugar. Will need to reschedule. Voicemail left for nurse at [facility] to explain. Rescheduled for Saturday. Patient made aware. Per Dr. Barakat can discharge home. Transportation aware to pick patient up at front door. Patient wheeled down to [facility].
--- NOTE | 2018-09-19 11:53 | NUR ---
Initial visit; Patient thanked Loss Control Consultant for looking in on her prior to her surgical procedure and offering encouragement and prayer.
== END ==
LOC: SDCO 08:21
DX: K85.90 Acute pancreatitis without necrosis or infection, unspecified (principal); R11.2 Nausea with vomiting, unspecified; I25.10 Atherosclerotic heart disease of native coronary artery without angina pectoris; I25.2 Old myocardial infarction; I27.20 Pulmonary hypertension, unspecified; M79.7 Fibromyalgia; E11.40 Type 2 diabetes mellitus with diabetic neuropathy, unspecified; M10.9 Gout, unspecified; I12.9 Hypertensive chronic kidney disease with stage 1 through stage 4 chronic kidney disease, or unspecified chronic kidney disease; E11.22 Type 2 diabetes mellitus with diabetic chronic kidney disease; N18.9 Chronic kidney disease, unspecified; D63.1 Anemia in chronic kidney disease; Z95.1 Presence of aortocoronary bypass graft; Z90.49 Acquired absence of other specified parts of digestive tract; Z89.612 Acquired absence of left leg above knee; Z90.5 Acquired absence of kidney; Z79.4 Long term (current) use of insulin; Z79.82 Long term (current) use of aspirin; Z88.2 Allergy status to sulfonamides; Z88.1 Allergy status to other antibiotic agents; Z88.8 Allergy status to other drugs, medicaments and biological substances
CPT/HCPCS: J2704; J3010

== ENCOUNTER 2018-09-22 13:05 | Day surgery (SDC) | payer MEDICARE, OTHER, MEDICAID ==
[2008-12-27 17:53] VITALS: BP 144/90
[~2018-09-22] VITALS: Ht 154.9 cm; Wt 79.5 kg
[~2018-09-22 13:05] MED LIST changes: -LYRICA 50MG CAP50 MG PO; -RANEXA 500MG T500 MG PO
[2018-09-22] MEDS ORDERED: LYRICA 50MG CAP50 MG PO ×2 (15:40)
[2018-09-22] MEDS ORDERED: RANEXA 500MG T500 MG PO (15:43)
[2018-09-22 16:40] VITALS: BP 92/58; PULSE 83; TEMP 98.3
--- NOTE | 2018-09-22 16:40 | NUR ---
Patient arrives back to [facility] alert, denies pain or nausea. Patient transfers from cart to chair with minimal assistance. Patient monitor applied, vitals stable.
--- NOTE | 2018-09-22 16:50 | NUR ---
Patient tolerating apple juice without any nausea.
[2018-09-22 17:00] VITALS: BP 108/60; PULSE 84
--- NOTE | 2018-09-22 17:10 | NUR ---
Dismissal instructions gone over with patient, patient voices understanding and all questions answered.
--- NOTE | 2018-09-22 17:15 | NUR ---
Patient leaves thanking staff for services.
[2018-09-22 17:31] VITALS: BP 117/65; PULSE 83; TEMP 98.3
== END 2018-09-22 17:15 | disposition home or self-care (01) ==
LOC: SDCO 13:05
DX: K83.1 Obstruction of bile duct (principal); K31.89 Other diseases of stomach and duodenum; K83.8 Other specified diseases of biliary tract; I12.9 Hypertensive chronic kidney disease with stage 1 through stage 4 chronic kidney disease, or unspecified chronic kidney disease; E11.22 Type 2 diabetes mellitus with diabetic chronic kidney disease; N18.9 Chronic kidney disease, unspecified; Z88.1 Allergy status to other antibiotic agents; Z88.2 Allergy status to sulfonamides; Z88.8 Allergy status to other drugs, medicaments and biological substances; Z79.4 Long term (current) use of insulin; Z79.82 Long term (current) use of aspirin; D64.9 Anemia, unspecified; F32.9 Major depressive disorder, single episode, unspecified; E78.00 Pure hypercholesterolemia, unspecified; M10.9 Gout, unspecified; Z90.710 Acquired absence of both cervix and uterus; Z90.49 Acquired absence of other specified parts of digestive tract; Z90.5 Acquired absence of kidney; Z95.1 Presence of aortocoronary bypass graft; Z89.612 Acquired absence of left leg above knee; I25.10 Atherosclerotic heart disease of native coronary artery without angina pectoris; I25.2 Old myocardial infarction; I27.20 Pulmonary hypertension, unspecified
CPT/HCPCS: J1644; J2704; J7030; Q9967

== ENCOUNTER → 2018-09-22 | Outpatient (CLI) | payer MEDICARE, OTHER, MEDICAID ==
[2018-09-22 18:34] LABS: ALBUMIN 3.9 gm/dL (3.5-5.0); BILIRUBIN,TOTAL 0.4 mg/dL (0.0-1.0); CALCIUM 10.1 mg/dL (8.4-10.2); CHOLESTEROL RISK RATIO 6.6; CREATININE, serum 1.27 (0.52-1.25); POTASSIUM 4.6 mmol/L (3.4-5.0); TOTAL PROTEIN 6.6 gm/dL (6.4-8.2)
[2018-09-23 17:45] LABS: PROT-CREAT RATIO, URINE 0.6 (())
[2018-09-23 21:49] LABS: PTH,INTACT 32.8 pg/mL (6.6-88.9)
== END ==
LOC: ZCOL.LAB 16:30
PROVIDERS: Nurse Practitioner
DX: N17.9 Acute kidney failure, unspecified (principal); I25.810 Atherosclerosis of coronary artery bypass graft(s) without angina pectoris; E83.52 Hypercalcemia

== ENCOUNTER 2018-10-03 19:59 | Emergency (ER) | payer MEDICARE, OTHER, MEDICAID ==
[2008-12-27 17:53] VITALS: BP 144/90
[~2018-10-03] VITALS: Ht 154.9 cm; Wt 79.5 kg
[~2018-10-03 19:59] MED LIST changes: +LYRICA 50MG CAP50 MG PO; +RANEXA 500MG T500 MG PO
[2018-10-03 20:06] VITALS: TEMP 98.3
[2018-10-03 20:41] LABS: HEMATOCRIT 37.4 % (37.0-47.0); HEMOGLOBIN 11.6 g/dl (12.5-16.0); MEAN CELL VOLUME 88 fl (80.0-100.0); MEAN CORPUSCULAR HEMOGLOBIN 27 pg (27.0-31.0); MEAN CORPUSCULAR HGB CONC 31 g/dl (33.0-37.0); MEAN PLATELET VOLUME 9.5 fl (7.4-10.4); PLATELET COUNT 156 K/mm3 (130-400); RED BLOOD COUNT 4.26 M/mm3 (4.10-5.30); REDCELL DISTRIBUTION WIDTH-CV 16.3 % (11.5-14.5)
[2018-10-03 21:10] LABS: ALANINE AMINOTRANSFERASE 12 U/L (9-52); ALBUMIN 3.7 gm/dL (3.5-5.0); ALKALINE PHOSPHATASE 212 U/L (50-136); ANION GAP 16 mmol/L (7-16); AST,SGOT 35 U/L (15-37); BILIRUBIN,TOTAL 0.4 mg/dL (0.0-1.0); BLOOD UREA NITROGEN 47 mg/dL (7-17); CALCIUM 9.8 mg/dL (8.4-10.2); CARBON DIOXIDE 20 mmol/L (22-30); CHLORIDE 102 mmol/L (98-107); CREATININE, serum 1.86 (0.52-1.25); POTASSIUM 4.5 mmol/L (3.4-5.0); SODIUM 139 mmol/L (137-145); TOTAL PROTEIN 6.5 gm/dL (6.4-8.2)
[2018-10-03 21:17] LABS: GLUCOSE 583 mg/dL (74-106)
[2018-10-03 21:30] LABS: ACETONE,SERUM NEGATIVE
[2018-10-03 21:40] LABS: EOSINOPHIL 1 % (0-4); LYMPHOCYTE 22 % (20.0-51.0); NEUTROPHILS 67 % (42.0-75.2)
[2018-10-03 21:41] LABS: ANISOCYTOSIS 1+; PLATELET ESTIMATE NORMAL (NORMAL)
[2018-10-03 22:15] LABS: COLLECTION METHOD CLEAN CATCH
[2018-10-03 22:20] LABS: PH 6 (5-8); SQUAMOUS EPITHELIAL 0-2 /hpf; URINE APPEARANCE Clear; URINE BACTERIA None Seen /hpf; URINE BILIRUBIN Negative (NEGATIVE); URINE BLOOD Negative (NEGATIVE); URINE COLOR Straw; URINE GLUCOSE 3+ (NEGATIVE); URINE KETONE Negative (NEGATIVE); URINE LEUKOCYTE ESTERASE Negative (NEGATIVE); URINE NITRATE Negative (NEGATIVE); URINE PROTEIN(semi-quant) Negative (NEGATIVE); URINE RBC 0-2 /hpf; URINE UROBILINOGEN Negative (NEGATIVE)
[2018-10-04 00:15] VITALS: BP 112/61; PULSE 91
== END 2018-10-04 00:15 | disposition short-term general hospital (02) ==
LOC: COL.ER 19:59
PROVIDERS: Emergency Medicine
DX: E11.65 Type 2 diabetes mellitus with hyperglycemia (principal); E11.10 Type 2 diabetes mellitus with ketoacidosis without coma; E86.0 Dehydration; N17.9 Acute kidney failure, unspecified; Z79.4 Long term (current) use of insulin
CPT/HCPCS: J1815; J7030

== ENCOUNTER → 2018-10-17 | Outpatient (CLI) | payer MEDICARE, OTHER, MEDICAID | LOC: BHSO 14:02 | DX: F31.81 Bipolar II disorder (principal) | CPT/HCPCS: G0463 ==

== ENCOUNTER 2018-11-07 20:58 | Observation (INO) | payer MEDICARE, OTHER, MEDICAID ==
[~2018-11-07] VITALS: Ht 154.9 cm; Wt 86.1 kg
[2018-11-07 21:29] LABS: BASO % 0.3 % (0.0-2.0); GRAN # 7.2 (1.4-6.5); GRAN % 78.9 % (42.2-75.2); HEMATOCRIT 37.3 % (37.0-47.0); HEMOGLOBIN 11.9 g/dl (12.5-16.0); LYMPH % 11.2 % (20.0-51.0); MEAN CELL VOLUME 87 fl (80.0-100.0); MEAN CORPUSCULAR HEMOGLOBIN 28 pg (27.0-31.0); MEAN CORPUSCULAR HGB CONC 32 g/dl (33.0-37.0); MEAN PLATELET VOLUME 9.4 fl (7.4-10.4); MONO # 0.7 (0.1-0.6); MONO % 7.4 % (1.7-9.3); PLATELET COUNT 169 K/mm3 (130-400); RED BLOOD COUNT 4.29 M/mm3 (4.10-5.30); REDCELL DISTRIBUTION WIDTH-CV 17.1 % (11.5-14.5)
[2018-11-07 21:36] LABS: ALBUMIN 4.3 gm/dL (3.5-5.0); BILIRUBIN,TOTAL 0.4 mg/dL (0.0-1.0); CALCIUM 10.6 mg/dL (8.4-10.2); CREATININE, serum 1.89 (0.52-1.25); POTASSIUM 4.5 mmol/L (3.4-5.0); TOTAL PROTEIN 7.2 gm/dL (6.4-8.2)
[2018-11-07 22:17] LABS: COLLECTION METHOD CLEAN CATCH
[2018-11-07 22:28] LABS: PH 6 (5-8); URINE APPEARANCE Clear; URINE BACTERIA Rare /hpf; URINE BILIRUBIN Negative (NEGATIVE); URINE BLOOD Negative (NEGATIVE); URINE COLOR Straw; URINE GLUCOSE 3+ (NEGATIVE); URINE KETONE Negative (NEGATIVE); URINE LEUKOCYTE ESTERASE Negative (NEGATIVE); URINE NITRATE Negative (NEGATIVE); URINE PROTEIN(semi-quant) Negative (NEGATIVE); URINE UROBILINOGEN Negative (NEGATIVE)
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
[2018-11-08 00:51] VITALS: BP 129/64; PULSE 69; TEMP 97.6
[2018-11-08] MEDS ORDERED: SILVADENE CREAM1 TU TP (01:26)
[2018-11-08] MEDS ORDERED: CARAFATE 1GM1 G PO (01:27)
[2018-11-08] MEDS ORDERED: TEARS-ARTIFICIA15 ML OP (01:30)
--- NOTE | 2018-11-08 02:00 | NUR ---
IVF CONNECTED TO RIGHT PORT AND INFUSING WITHOUT PROBLEM. GIVEN 10 UNITS OF NOVOLOG AT THIS TIME.
[2018-11-08 04:05] VITALS: BP 109/53; PULSE 74; TEMP 97.8
--- NOTE | 2018-11-08 04:55 | NUR ---
Tylenol 650mg po for left shoulder discomfort 08/01. OK=769yy/dl, Novolog 8units at this time.
[2018-11-08 06:11] LABS: HEMOGLOBIN 10.8 g/dl (12.5-16.0); MEAN CELL VOLUME 87 fl (80.0-100.0); MEAN CORPUSCULAR HEMOGLOBIN 28 pg (27.0-31.0); MEAN CORPUSCULAR HGB CONC 32 g/dl (33.0-37.0); MEAN PLATELET VOLUME 9.6 fl (7.4-10.4); PLATELET COUNT 135 K/mm3 (130-400); RED BLOOD COUNT 3.92 M/mm3 (4.10-5.30); REDCELL DISTRIBUTION WIDTH-CV 16.9 % (11.5-14.5)
[2018-11-08 06:12] LABS: HEMATOCRIT 33.9 % (37.0-47.0)
[2018-11-08 06:29] LABS: CALCIUM 9.7 mg/dL (8.4-10.2); CREATININE, serum 1.58 (0.52-1.25); POTASSIUM 4.4 mmol/L (3.4-5.0)
[2018-11-08 07:14] LABS: ANISOCYTOSIS 1+; HYPOCHROMIA 2+; LYMPHOCYTE 15 % (20.0-51.0); MYELOCYTE 3 % (0-0); NEUTROPHILS 77 % (42.0-75.2); PLATELET ESTIMATE NORMAL (NORMAL)
[2018-11-08 08:55] VITALS: BP 130/69; PULSE 70; TEMP 98.5
[2018-11-08 11:56] VITALS: BP 100/64; PULSE 78; TEMP 98.9
--- NOTE | 2018-11-08 12:14 | NUR ---
MADIE met with the patient. The pt resides at [facility] and wants to go back there upon discharge. [facility] nurses assist with all ADLs and pt cannot ambulate; uses a wheelchair. The pt's PCP is Dr. Medina and pt receives medications from [facility] with no difficulties. The pt does have advanced directives in the EMR and designate Lois Mai and Nury Schaffer. The pt plans to return to [facility] and transportation will be provided by [facility]. MADIE faxed pt update to [facility]. There are no additional needs at this time.
[2018-11-08 16:09] VITALS: BP 108/55; PULSE 75; TEMP 98.2
--- NOTE | 2018-11-08 16:40 | NUR ---
Patient given discharge teaching, report called to Kiara weber [facility]. Port de-accessed by JAZMINE Barkley. Patient denies pain or needs. Patient escorted out by surgical staff via wheel chair, patient left via transport from [facility].
== END 2018-11-08 14:40 ==
LOC: COL.ER 20:58 → SURG 11-08 00:14
PROVIDERS: Emergency Medicine; ADMIT Hospitalist
DX: E11.22 Type 2 diabetes mellitus with diabetic chronic kidney disease (principal); E11.65 Type 2 diabetes mellitus with hyperglycemia; E11.40 Type 2 diabetes mellitus with diabetic neuropathy, unspecified; I12.9 Hypertensive chronic kidney disease with stage 1 through stage 4 chronic kidney disease, or unspecified chronic kidney disease; N18.9 Chronic kidney disease, unspecified; Z79.4 Long term (current) use of insulin; R82.71 Bacteriuria; N31.9 Neuromuscular dysfunction of bladder, unspecified; I25.10 Atherosclerotic heart disease of native coronary artery without angina pectoris; Z95.1 Presence of aortocoronary bypass graft; Z95.5 Presence of coronary angioplasty implant and graft; E03.9 Hypothyroidism, unspecified; K21.9 Gastro-esophageal reflux disease without esophagitis; M10.9 Gout, unspecified; K86.1 Other chronic pancreatitis; Z85.72 Personal history of non-Hodgkin lymphomas; E21.3 Hyperparathyroidism, unspecified; F31.9 Bipolar disorder, unspecified; Z87.19 Personal history of other diseases of the digestive system; Z90.49 Acquired absence of other specified parts of digestive tract; Z90.710 Acquired absence of both cervix and uterus; Z90.5 Acquired absence of kidney; Z92.21 Personal history of antineoplastic chemotherapy; Z86.19 Personal history of other infectious and parasitic diseases; Z79.82 Long term (current) use of aspirin; Z79.899 Other long term (current) drug therapy; Z82.49 Family history of ischemic heart disease and other diseases of the circulatory system; Z80.3 Family history of malignant neoplasm of breast; Z88.2 Allergy status to sulfonamides; Z89.519 Acquired absence of unspecified leg below knee; M25.512 Pain in left shoulder
CPT/HCPCS: G0378; J1644; J1815; J7030

== ENCOUNTER → 2019-01-02 | Outpatient (CLI) | payer MEDICARE, OTHER, MEDICAID ==
[~2019-01-02] MED LIST changes: +ATROVENT I0.2 MG/1 M IH; +COUMADIN 3MG3 MG/TAB PO; +DULCOLAX S10 MG/SUPP RC; +FOLIC ACID 11 MG/TA1 PO; +INGREZZA80 MG PO; +KEPPRA 500MG500 MG PO; +LIQUIFILM TEARS15 ML OU; +NATURE'S BLEND100 M2 PO; +NICODERM C21 MG/PATC TD; +SILVADENE CREAM1 TU TP; +TEARS-ARTIFICIA15 ML OP; +VITAMIN D 1001000 IU PO
[2019-01-02 12:05] LABS: BASO # 0.1 (0.0-0.2); BASO % 0.6 % (0.0-2.0); EOS # 0.3 (0.0-0.7); EOS % 3.4 % (0-4.0); GRAN # 6.2 (1.4-6.5); GRAN % 73.3 % (42.2-75.2); HEMATOCRIT 39.1 % (37.0-47.0); HEMOGLOBIN 12.5 g/dl (12.5-16.0); LYMPH # 1.4 (1.2-3.4); LYMPH % 15.9 % (20.0-51.0); MEAN CELL VOLUME 88 fl (80.0-100.0); MEAN CORPUSCULAR HEMOGLOBIN 28 pg (27.0-31.0); MEAN CORPUSCULAR HGB CONC 32 g/dl (33.0-37.0); MEAN PLATELET VOLUME 8.9 fl (7.4-10.4); MONO # 0.5 (0.1-0.6); MONO % 5.9 % (1.7-9.3); PLATELET COUNT 150 K/mm3 (130-400); RED BLOOD COUNT 4.46 M/mm3 (4.10-5.30); REDCELL DISTRIBUTION WIDTH-CV 15.5 % (11.5-14.5)
[2019-01-02 12:19] LABS: ALBUMIN 4.5 gm/dL (3.5-5.0); BILIRUBIN,TOTAL 0.4 mg/dL (0.0-1.0); CALCIUM 10.8 mg/dL (8.4-10.2); CREATININE, serum 2.17 (0.52-1.25); POTASSIUM 4.3 mmol/L (3.4-5.0); TOTAL PROTEIN 7.3 gm/dL (6.4-8.2)
== END ==
LOC: COL.LAB 11:36
DX: E11.9 Type 2 diabetes mellitus without complications (principal); K83.1 Obstruction of bile duct; K85.90 Acute pancreatitis without necrosis or infection, unspecified

== ENCOUNTER → 2019-01-07 | Outpatient (CLI) | payer MEDICARE, OTHER, MEDICAID | LOC: BHSO 13:41 | DX: F31.81 Bipolar II disorder (principal) | CPT/HCPCS: G0463 ==

== ENCOUNTER → 2019-01-08 | Outpatient (CLI) | payer MEDICARE, OTHER, MEDICAID ==
[2019-01-08 18:00] LABS: CALCIUM 10.4 mg/dL (8.4-10.2); CREATININE, serum 2.12 (0.52-1.25); POTASSIUM 4.1 mmol/L (3.4-5.0)
== END ==
LOC: ZCOL.LAB 15:25
PROVIDERS: Internal Medicine Nephrology
DX: E11.9 Type 2 diabetes mellitus without complications (principal); N17.9 Acute kidney failure, unspecified

== ENCOUNTER 2019-01-10 13:43 | Emergency (ER) | payer MEDICARE, OTHER, MEDICAID ==
[2008-12-27 17:53] VITALS: BP 144/90
[~2019-01-10] VITALS: Ht 154.9 cm; Wt 84.5 kg
[2019-01-10 13:45] VITALS: BP 106/59; TEMP 98.5
[2019-01-10 15:13] LABS: BASO # 0.1 (0.0-0.2); BASO % 0.9 % (0.0-2.0); EOS # 0.4 (0.0-0.7); EOS % 4.5 % (0-4.0); GRAN # 5.1 (1.4-6.5); GRAN % 65.8 % (42.2-75.2); HEMOGLOBIN 12.6 g/dl (12.5-16.0); LYMPH # 1.5 (1.2-3.4); LYMPH % 19.1 % (20.0-51.0); MEAN CELL VOLUME 87 fl (80.0-100.0); MEAN CORPUSCULAR HEMOGLOBIN 28 pg (27.0-31.0); MEAN CORPUSCULAR HGB CONC 32 g/dl (33.0-37.0); MEAN PLATELET VOLUME 9.7 fl (7.4-10.4); MONO # 0.6 (0.1-0.6); MONO % 7.6 % (1.7-9.3); PLATELET COUNT 181 K/mm3 (130-400); RED BLOOD COUNT 4.47 M/mm3 (4.10-5.30); REDCELL DISTRIBUTION WIDTH-CV 15.3 % (11.5-14.5)
[2019-01-10 15:24] LABS: ALBUMIN 4.5 gm/dL (3.5-5.0); BILIRUBIN,TOTAL 0.4 mg/dL (0.0-1.0); CALCIUM 11.4 mg/dL (8.4-10.2); CREATININE, serum 1.9 (0.52-1.25); POTASSIUM 4.7 mmol/L (3.4-5.0); TOTAL PROTEIN 7.3 gm/dL (6.4-8.2)
[2019-01-10] MEDS ORDERED: FLEXERIL 1010 MG/TAB PO (15:40)
[2019-01-10 16:12] VITALS: PULSE 86
== END 2019-01-10 16:14 | disposition home or self-care (01) ==
LOC: COL.ER 13:43
PROVIDERS: Nurse Practitioner
DX: R25.2 Cramp and spasm (principal); F31.9 Bipolar disorder, unspecified; F41.9 Anxiety disorder, unspecified; I10 Essential (primary) hypertension; Z79.82 Long term (current) use of aspirin; Z79.4 Long term (current) use of insulin

== ENCOUNTER 2019-02-25 06:35 | Inpatient (IN) | payer MEDICARE, OTHER, MEDICAID ==
[~2019-02-25] VITALS: Ht 154.9 cm; Wt 91.5 kg
[2019-02-25 07:05] LABS: HEMATOCRIT 40.9 % (37.0-47.0); MEAN CELL VOLUME 90 fl (80.0-100.0); MEAN CORPUSCULAR HEMOGLOBIN 29 pg (27.0-31.0); MEAN CORPUSCULAR HGB CONC 32 g/dl (33.0-37.0); MEAN PLATELET VOLUME 10.2 fl (7.4-10.4); PLATELET COUNT 170 K/mm3 (130-400); RED BLOOD COUNT 4.53 M/mm3 (4.10-5.30); REDCELL DISTRIBUTION WIDTH-CV 16.6 % (11.5-14.5)
[2019-02-25 07:31] LABS: BAND 2 % (0-10); EOSINOPHIL 3 % (0-4); LYMPHOCYTE 27 % (20.0-51.0); METAMYELOCYTE 1 % (0-0); NEUTROPHILS 62 % (42.0-75.2); PLATELET ESTIMATE NORMAL (NORMAL)
[2019-02-25 07:43] LABS: PROTHROMBIN TIME 11.5 SECONDS (9.7-12.8)
[2019-02-25 07:45] LABS: ALBUMIN 4.3 gm/dL (3.5-5.0); BILIRUBIN,TOTAL 0.5 mg/dL (0.0-1.0); CREATININE, serum 2.07 (0.52-1.25); MAGNESIUM 1.7 mg/dL (1.6-2.3); POTASSIUM 4.6 mmol/L (3.4-5.0); TOTAL PROTEIN 7.2 gm/dL (6.4-8.2)
[2019-02-25 07:46] LABS: PARTIAL THROMBOPLASTIN TIME 34.3 SECONDS (26.0-37.0)
[2019-02-25 07:57] LABS: TROPONIN-I 0.032 ng/mL (0.000-0.035)
[2019-02-25 10:13] VITALS: BP 118/73; PULSE 72; TEMP 97.8
[2019-02-25 10:15] VITALS: BP 118/73; PULSE 71; TEMP 97.8
--- NOTE | 2019-02-25 10:42 | NUR ---
Pt arrives to medical unit rm 317 from ED via cart. Pt awake and alert, oriented x 3, active tremors noted to chin and bilat upper ext. Pt reports pain to middle of chest 8 out of 10 on pain scale. IVF's infusing per orders through left AC site without s/s of complications. Pt reports having an implanted port, consents to access as needed. Doctor notified of pt's arrival. Call light in reach.
[2019-02-25 12:01] VITALS: BP 131/68; PULSE 69; TEMP 97.4
[2019-02-25] MEDS ORDERED: VASCEPA1 GM PO (13:13)
[2019-02-25] MEDS ORDERED: NORCO 325 MG-51 TAB PO (13:14)
[2019-02-25] MEDS ORDERED: ATIVAN 0.50.5 MG/TAB PO (13:16)
--- NOTE | 2019-02-25 14:01 | NUR ---
Pt reports chest pain has increased again to 8 out of 10, requesting medication. See eMAR. IVF rate decreased per new orders. Call light in reach.
[2019-02-25] MEDS ORDERED: NOVOLOG 100U100 U/M1 SQ (14:38)
[2019-02-25] MEDS ORDERED: PRALUENT P75 MG/1 ML SQ (14:47)
[2019-02-25] MEDS ORDERED: TOPROL XL 25MG25 MG PO (14:49)
[2019-02-25 16:00] VITALS: BP 135/41; PULSE 74; TEMP 97.9
[2019-02-25 19:34] LABS: COLLECTION METHOD CLEAN CATCH
--- NOTE | 2019-02-25 19:46 | NUR ---
Report with JAZMINE Ocampo. Pt expresses concern about home medications. This nurse discussed the medications and times with pt and pt's DPOA after reviewing them with the pharmacist. Pt and DPOA verbalize understanding. No further needs reported. Call light in reach.
[2019-02-25 19:47] LABS: MUCOUS Present /lpf; PH 6 (5-8); SQUAMOUS EPITHELIAL 0-2 /hpf; URINE APPEARANCE Clear; URINE BACTERIA Rare /hpf; URINE BILIRUBIN Negative (NEGATIVE); URINE BLOOD Negative (NEGATIVE); URINE COLOR Yellow; URINE GLUCOSE 1+ (NEGATIVE); URINE KETONE Negative (NEGATIVE); URINE LEUKOCYTE ESTERASE Trace (NEGATIVE); URINE NITRATE Negative (NEGATIVE); URINE PROTEIN(semi-quant) Negative (NEGATIVE); URINE UROBILINOGEN Negative (NEGATIVE)
--- NOTE | 2019-02-25 20:00 | NUR ---
Assessment complete. Pt resting in bed. Alert and oriented. Able to make needs knowm. C/O middle chest pain, rate 7-8/10, relieved with PRN pain meds. Meds administered as ordered. Pt understands NPO status after midnight and is aware of Lexiscan test in AM. LAC IV dressing CDI with IVF. Tele monitor in place, leads checked. Needs attended too. Call light within reach.
[2019-02-25 20:24] VITALS: BP 117/54; PULSE 90
[2019-02-25 23:31] VITALS: BP 120/58; PULSE 80
[2019-02-26] VITALS (9 sets, daily range): BP systolic 97–164; BP diastolic 51–83; PULSE 74–117; TEMP 97.5–98.5
--- NOTE | 2019-02-26 05:49 | NUR ---
Pt slept thru the night. Needs attended too. PRN pain meds given as requested by pt with stated relief. NPO since midnight. Call light within reach.
[2019-02-26 06:22] LABS: HEMATOCRIT 37.1 % (37.0-47.0); HEMOGLOBIN 11.6 g/dl (12.5-16.0); MEAN CELL VOLUME 92 fl (80.0-100.0); MEAN CORPUSCULAR HEMOGLOBIN 29 pg (27.0-31.0); MEAN CORPUSCULAR HGB CONC 31 g/dl (33.0-37.0); MEAN PLATELET VOLUME 9.3 fl (7.4-10.4); PLATELET COUNT 128 K/mm3 (130-400); RED BLOOD COUNT 4.04 M/mm3 (4.10-5.30); REDCELL DISTRIBUTION WIDTH-CV 16.6 % (11.5-14.5)
[2019-02-26 06:54] LABS: TROPONIN-I 1.34 ng/mL (0.000-0.035)
[2019-02-26 07:04] LABS: CALCIUM 9.6 mg/dL (8.4-10.2); CREATININE, serum 1.81 (0.52-1.25); POTASSIUM 4.4 mmol/L (3.4-5.0)
--- NOTE | 2019-02-26 07:13 | NUR ---
Report given to JAZMINE Zimmer.
--- NOTE | 2019-02-26 08:00 | NUR ---
Patient sleeping in bed. Easily awakened. A&Ox3. Reporting pain in chest 09/01, requesting pain medication. IV CDI, fluids infusing. Tremors noted in hands and mouth. Patient NPO for lexiscan. VSS. No further needs expressed from patient. Call light within reach.
[2019-02-26 08:29] LABS: ANISOCYTOSIS 1+; BAND 2 % (0-10); EOSINOPHIL 5 % (0-4); LYMPHOCYTE 11 % (20.0-51.0); NEUTROPHILS 78 % (42.0-75.2); PLATELET ESTIMATE DECREASED (NORMAL)
--- NOTE | 2019-02-26 10:11 | NUR ---
Patient taken by wheelchair by radiology for Lexiscan
--- NOTE | 2019-02-26 10:17 | NUR ---
Patient got back to room 317 via wheelchair from [facility] scan. Call light within reach. IV fluids resumed.
--- NOTE | 2019-02-26 13:35 | NUR ---
MADIE met with the patient to discuss discharge plan. The patient resides at [facility] for long-term care. The patient reports that the plan to return back there upon discharge. MADIE presented and explained the Patient Choice Form to the patient. The patient verbalized understanding, signed, and she was provided a copy. The patient's PCP is Dr. Bianka Black and her DPOA-HC is in EMR. Her DPOA-HC is Destiny Mai (ph#[phone]) and the alternate is Anastasia Ferro (ph#[phone]). MADIE contacted and faxed updates to [facility]. MADIE to continue to follow.
--- NOTE | 2019-02-26 19:00 | NUR ---
REPORT RECEIVED FROM JAZMINE GUZMAN. CARE OF PT ASSUMED AT THIS TIME. ROUNDS MADE, PT DENIES NEEDS AT THIS TIME.
--- NOTE | 2019-02-26 19:01 | NUR ---
Patient sitting up in bed waiting for dinner to arrive. A&O. Reporting pain in chest 07/02. No pain medication requested. Port right chest accessed, CDI, fluids infusing. Patient NPO at midnight for procedure 02/27. Patient verbalized an understanding. No further needs expressed from patient. Call light within reach
--- NOTE | 2019-02-26 22:12 | NUR ---
PT IS ALERT, OX4, APPROPRIATE; REPORTS PAIN TO CHEST IS REDUCED FOLLOWING MEDICATIONS. PT ASSISTED TO BSC AT THIS TIME TO VOID; DENIES URINARY ISSUES. LEFT AKA; PT TRANSFERS TO BSC WITH X1 ASSIST. CALL LIGHT WITHIN REACH.
[2019-02-27] VITALS (64 sets, daily range): BP systolic 100–140; BP diastolic 50–86; PULSE 71–82; TEMP 97.6–98.4; O2SAT 77–99
--- NOTE | 2019-02-27 00:45 | NUR ---
PT REPORTS AWAKENED WITH INCREASED SOB. RT NOTIFIED. PT REQUESTS PAIN MEDICATIONS, REPORTS PAIN TO CHEST AT 7/10 CURRENTLY. VS OBTAINED AND WNL. AWAITING RT TO GIVE TREATMENT PRIOR TO PAIN MEDICATIONS TO BE GIVEN.
--- NOTE | 2019-02-27 01:35 | NUR ---
PT CONT TO REPORTS PAIN TO CHEST, RATES AT 7/10. RT TREATMENT HAS BEEN GIVEN AND PT REPORTS SOME RELIEF FROM SOB. MORPHINE 2MG GIVEN PER IV. CALL LIGHT WITHIN REACH.
--- NOTE | 2019-02-27 02:15 | NUR ---
PT IS SLEEPING WITH HOB RAISED. RESPIRATIONS EVEN AND UNLABORED, NO S/S OF DISTRESS. CALL LIGHT WITHIN REACH.
--- NOTE | 2019-02-27 06:09 | NUR ---
PT RESTED WELL THROUGH THE NIGHT, C/O INTERMITTENT CHEST PAIN AND SOB WHICH PT STATES HAS NOT CHANGED. PT RECEIVED DOSES OF NORCO AND MORPHINE TO RELIEVE PAIN. PT MADE NPO AT MIDNIGHT FOR A HEARTH CATH THIS MORNING.
[2019-02-27 06:31] LABS: HEMOGLOBIN 10.8 g/dl (12.5-16.0); MEAN CELL VOLUME 92 fl (80.0-100.0); MEAN CORPUSCULAR HEMOGLOBIN 29 pg (27.0-31.0); MEAN CORPUSCULAR HGB CONC 31 g/dl (33.0-37.0); MEAN PLATELET VOLUME 9.4 fl (7.4-10.4); PLATELET COUNT 121 K/mm3 (130-400); RED BLOOD COUNT 3.77 M/mm3 (4.10-5.30); REDCELL DISTRIBUTION WIDTH-CV 16.4 % (11.5-14.5)
[2019-02-27 06:45] LABS: CALCIUM 9.5 mg/dL (8.4-10.2); CREATININE, serum 1.7 (0.52-1.25); POTASSIUM 4.3 mmol/L (3.4-5.0)
[2019-02-27 06:57] LABS: HEMATOCRIT 34.5 % (37.0-47.0)
[2019-02-27 06:59] LABS: PROTHROMBIN TIME 11.9 SECONDS (9.7-12.8)
[2019-02-27 07:00] LABS: PARTIAL THROMBOPLASTIN TIME 88.8 SECONDS (26.0-37.0)
--- NOTE | 2019-02-27 07:11 | NUR ---
REPORT GIVEN TO JAZMINE BEDOLLA.
--- NOTE | 2019-02-27 08:21 | NUR ---
Pt sitting up in bed upon entering room. Rating pain 7\10, PRN Morphine given, follow up pain rating 4/10. Shift assessment completed, per primary nurse OK to give PO medicaitons and half of morning Levemir dose prior to procedure. After assessment completed pt reports pain at 3/10. Transferred with stand by assist to the commode, back to bed with call light in reach, will continue to monitor.
--- NOTE | 2019-02-27 13:50 | NUR ---
Pt sitting up in bed at this time. Friend at the bedside, no needs identified at this time. Primary nurse to resume care at this time.
--- NOTE | 2019-02-27 13:57 | NUR ---
Primary nurse was assisted with [id number] patient care by [employer] student Ayde Goncalves and [employer] instructor Carisa Ruggiero RN-.
--- NOTE | 2019-02-27 19:17 | NUR ---
patient is going down for heart cath at this time
--- NOTE | 2019-02-27 19:24 | NUR ---
SEE MERGE DOCUMENTATION FOR MEDICATION ADMINISTRATION TIMES AND INTRA/POST PROCEDURE SEDATION ASSESSMENTS.
--- NOTE | 2019-02-27 20:18 | NUR ---
Report rcvd from JAZMINE Betancur. Pt is sitting in bed awaiting Comic Artist. During report Comic Artist arrived. Assessment completed. No complaints except wanting food. No tray was delivered, nor any food boxes brought up from dietary. Will monitor pt upon return to medical floor.
--- NOTE | 2019-02-27 21:11 | NUR ---
Arrived to the unit via stretcher; patient very drowsy. Opens eyes to speech and able to correctly state where she is, however pt quickly falls back to sleep and needs verbal prodding to awaken again. VS stable respirations 10-12 and o2 98% on RA. Patient received dose of versed and fentanyl during cath procedure.
--- NOTE | 2019-02-27 21:35 | NUR ---
PT TRANSFERED TO ICU AT THIS TIME FROM FORM DESIGNER. PT DROWSY BUT WAKES EASILY TO NAME, ANSWERS QUESTIONS. VS'S WNL. BEDSIDE HANDOFF TO KURT SIGNAL MANAGER. RIGHT GROIN SITE ASSESSED. SMALL AMOUNT OF BLOOD NOTED TO EDGE OF DRESSING. BLOOD MARKED AND PRESSURE HELD X10 MIN. SLIGHT TRACT OOZING WAS NOTED PRIOR TO PLACEMENT OF DRESSING IN FORM DESIGNER. SURROUNDING TISSUE SOFT; NO S/SX OF HEMATOMA NOTED. DP PULSE REMAINS FOUND WITH DOPPLER; NO CHANGE FROM PRE-CATH.
--- NOTE | 2019-02-27 21:45 | NUR ---
Hospitalist notfied about patient's persistant drowsiness; with occasional snoring respirations. Pt still awakens to speech and able to state where she is but falls back asleep almost immediately. 02 still greater than 95% on RA. Received order to obtain ABG.
--- NOTE | 2019-02-27 21:54 | NUR ---
Pt did not return to medical floor. Contacted NEEDLE LOOM TENDER who informed this RN of the catheter finisher and inspector interventions. Pt transferred to ICU bed 5. No update has been given from catheter finisher and inspector. However, an intervetion was performed therefor the pt transferred to ICU for monitoring. No further concerns at this time. Coordination of Care with JAZMINE Gonzales.
[2019-02-27 23:00] LABS: ARTERIAL BLD GAS O2 SATURATION 95.7 % (92-100); ARTERIAL BLD GAS TCO2 CT 21.2; ARTERIAL BLOOD GAS BASE EXCESS -5.1 (-2-2); ARTERIAL BLOOD GAS HCO3 20.1 meq/L (22-26); ARTERIAL BLOOD GAS PCO2 37.8 mmHg (35-45); ARTERIAL BLOOD GAS PO2 86.2 mmHg (80-100); ARTERIAL BLOOD GAS pH 7.34 (7.35-7.45)
[2019-02-28] VITALS (351 sets, daily range): BP systolic 109–147; BP diastolic 45–85; PULSE 70–92; TEMP 97.2–97.8; O2SAT 64–100
--- NOTE | 2019-02-28 | NUR ---
Patient more alert than upon admission into unit. Able to make needs known to nurse, uses call light as needed and able answer questions appropriately. Will continue to monitor.
--- NOTE | 2019-02-28 03:45 | NUR ---
Dressing nearly saturated with light red blood. Groin soft and minimally tender to palpitation. Removed old bandage and placed new guaze under tegaderm.
[2019-02-28 05:21] LABS: BASO % 0.6 % (0.0-2.0); EOS # 0.2 (0.0-0.7); EOS % 4.2 % (0-4.0); GRAN # 4.1 (1.4-6.5); GRAN % 76.7 % (42.2-75.2); HEMOGLOBIN 11.4 g/dl (12.5-16.0); LYMPH # 0.5 (1.2-3.4); MEAN CELL VOLUME 90 fl (80.0-100.0); MEAN CORPUSCULAR HEMOGLOBIN 28 pg (27.0-31.0); MEAN CORPUSCULAR HGB CONC 32 g/dl (33.0-37.0); MEAN PLATELET VOLUME 9.1 fl (7.4-10.4); MONO # 0.4 (0.1-0.6); MONO % 7.4 % (1.7-9.3); PLATELET COUNT 112 K/mm3 (130-400); RED BLOOD COUNT 4.01 M/mm3 (4.10-5.30); REDCELL DISTRIBUTION WIDTH-CV 16.3 % (11.5-14.5)
[2019-02-28 05:22] LABS: HEMATOCRIT 36.1 % (37.0-47.0)
[2019-02-28 05:35] LABS: CREATININE, serum 1.6 (0.52-1.25); POTASSIUM 4.1 mmol/L (3.4-5.0)
--- NOTE | 2019-02-28 07:30 | NUR ---
Report receieved from JAZMINE Gonzales. Patient right femoral site CDI, soft and free of hematoma. PAC accessed with intact occlusive dressing with Nitro and MIVF concentrations and rates verified. Care assumed at this time.
--- NOTE | 2019-02-28 09:00 | NUR ---
Dr. Hurst rounds at this time. Orders as entered CPOE. Care ongoing.
--- NOTE | 2019-02-28 13:30 | NUR ---
Patient to room 357 from ICU by wheelchair. Orientated patient to room and call light. Patient verbalized an understanding. Contact precautions in place. Port CDI. No further needs expressed from patient. Call light within reach
--- NOTE | 2019-02-28 13:49 | NUR ---
Pt transferred to room 357,care assumed by Sae Zimmer.
--- NOTE | 2019-02-28 18:18 | NUR ---
Patient resting in bed. Since coming up from ICU has not reported any pain or discomfort. PAC CDI. VSS. Telemetry on chest. Contact precautions in place. Right femoral site, CDI. No further needs expressed from patient. Call light within reach. Bed alarm on
--- NOTE | 2019-02-28 19:57 | NUR ---
Pt rating pain 7/10 in abdomen after eating minimal amount of dinner. Pt reports some nausea, as well. No distress noted. PRN pain medication given. Respirations even and unlabored. Lungs clear. Abdomen rounded, soft. BS+. Tremors noted. Pt denies further needs.
[2019-03-01 03:53] VITALS: BP 145/78; PULSE 75; TEMP 98.4
--- NOTE | 2019-03-01 06:55 | NUR ---
Pt sleeping this AM. No distress noted. Dressing to chin clean, dry and intact. Report given to Anastasia Quevedo.
--- NOTE | 2019-03-01 07:44 | NUR ---
REPORT RECEIVED FROM JAZMINE CRISTOBAL. PT SLEEPING SOUNDLY IN BED. CALL LIGHT IN REACH.
--- NOTE | 2019-03-01 08:36 | NUR ---
Pt alert and oriented and c/o abd pain, 10/01. Call light in reach.
[2019-03-01 08:49] VITALS: BP 132/92; PULSE 79; TEMP 97.6
--- NOTE | 2019-03-01 10:30 | NUR ---
Visit attempted and pt sleeping soundly in bed. Call light in reach.
[2019-03-01 11:00] LABS: BASO % 0.6 % (0.0-2.0); EOS # 0.2 (0.0-0.7); EOS % 3.7 % (0-4.0); GRAN # 5.1 (1.4-6.5); GRAN % 77.8 % (42.2-75.2); HEMATOCRIT 39.4 % (37.0-47.0); HEMOGLOBIN 12.4 g/dl (12.5-16.0); LYMPH # 0.7 (1.2-3.4); LYMPH % 11.1 % (20.0-51.0); MEAN CELL VOLUME 90 fl (80.0-100.0); MEAN CORPUSCULAR HEMOGLOBIN 28 pg (27.0-31.0); MEAN CORPUSCULAR HGB CONC 32 g/dl (33.0-37.0); MEAN PLATELET VOLUME 9.1 fl (7.4-10.4); MONO # 0.4 (0.1-0.6); MONO % 5.9 % (1.7-9.3); PLATELET COUNT 128 K/mm3 (130-400); REDCELL DISTRIBUTION WIDTH-CV 16.3 % (11.5-14.5)
[2019-03-01 11:15] LABS: CALCIUM 10.7 mg/dL (8.4-10.2); CREATININE, serum 1.66 (0.52-1.25); POTASSIUM 4.1 mmol/L (3.4-5.0)
[2019-03-01 11:48] VITALS: BP 134/57; PULSE 66; TEMP 98.7
--- NOTE | 2019-03-01 14:13 | NUR ---
PT C/O ABDOMINAL PAIN AND ASKED FOR PAIN MED. CALL LIGHT IN REACH.
[2019-03-01 15:15] VITALS: BP 107/53; PULSE 81; TEMP 98.4
--- NOTE | 2019-03-01 16:51 | NUR ---
visit attempted and pt sleeping soundly in bed. call light in reach.
--- NOTE | 2019-03-01 17:20 | NUR ---
PT CALLED NURSING STAFF FOR PAIN MED. PT C/O ABDOMINAL PAIN, 10/01. CALL LIGHT IN REACH.
--- NOTE | 2019-03-01 18:22 | NUR ---
PT WILLING TO SITIN A CHAIR TO HAVE DINNER. PT'S FRIEND VISITING IN . CALL LIGHT IN REACH. PAIN UNDER CONTROL.
--- NOTE | 2019-03-01 19:01 | NUR ---
Report given to JAZMINE Galloway. Pt resting in chair comfortably. Call light in reach.
[2019-03-01 19:10] VITALS: BP 99/58; PULSE 88; TEMP 97.7
--- NOTE | 2019-03-01 19:50 | NUR ---
Shift assessment complete. Pt resting in bed, awake, a&o, cooperative c cares. Pt c/o continued abd pain; PRN Savanna admin per pt req. Pt denies any other c/o at this time. Portacath accessed to R chest; patent c good blood return. Pt denies further needs at this time. Call light in reach, bed alarm on. Will continue to monitor.
[2019-03-01 23:53] VITALS: BP 98/62; PULSE 84; TEMP 97.6
[2019-03-02 03:14] VITALS: BP 112/56; PULSE 78; TEMP 98.3
[2019-03-02 08:03] VITALS: BP 137/53; PULSE 72; TEMP 97.5
[2019-03-02 11:19] VITALS: BP 129/59; PULSE 71; TEMP 97.9
[2019-03-02 15:24] VITALS: BP 122/44; PULSE 77; TEMP 98.5
--- NOTE | 2019-03-02 16:53 | NUR ---
Regulatory Lead was notified by Hospitalist patient ready to be discharged. MADIE met with patient and patient is in agreeance to discharge back to [facility]. MADIE presented IM form to patient who understood her rights and provided signature. MADIE placed signed IM in chart. MADIE contacted Rajesh at [facility] and set transportation time for 1700. MADIE provided update to RNOdalys. MADIE notified patient's DPDestiny TERRELL of pending discharge to [facility]. MADIE faxed orders to [facility]. No additional concerns at this time.
[2019-03-02 16:55] VITALS: BP 122/44; PULSE 77; TEMP 98.5
--- NOTE | 2019-03-02 17:30 | NUR ---
PATIENT DISCHARGING BACK TO [facility] VIA WHEELCHAIR. DE-ACCESSED RIGHT CHEST PORT. DC'D TELE. SENT INFO PACKET WITH MAGAZINE DESIGNER. PATIENT DISCHARGED.
--- NOTE | 2019-03-02 17:35 | NUR ---
TRIED TO CALL REPORTS TO [facility]. NONE OF THE EVENING STAFF SEEMED SURE ABOUT THE PATIENT. LEFT NUMBER FOR NURSE AT [facility] TO CALL HERE FOR REPORT.
== END 2019-03-02 17:30 | DRG 246 ==
LOC: COL.ER 06:35 → MEDICAL 08:59 → EDBEDREQ 09:14 → MEDICAL 19:00 → ICU 02-27 21:40 → MEDICAL 02-28 13:41
PROVIDERS: Emergency Medicine; Family Medicine; Nurse Practitioner Family; Physician Assistant; ADMIT Student in an Organized Health Care Education/Training Program
PROC: 027034Z Dilation of Coronary Artery, One Artery with Drug-eluting Intraluminal Device, Percutaneous Approach (ICD-10-PCS; principal; 2019-02-27)
PROC: 02703Z6 Dilation of Coronary Artery, One Artery, Bifurcation, Percutaneous Approach (ICD-10-PCS; 2019-02-27)
PROC: 4A023N7 Measurement of Cardiac Sampling and Pressure, Left Heart, Percutaneous Approach (ICD-10-PCS; 2019-02-27)
PROC: B2121ZZ Fluoroscopy of Single Coronary Artery Bypass Graft using Low Osmolar Contrast (ICD-10-PCS; 2019-02-27)
PROC: B2111ZZ Fluoroscopy of Multiple Coronary Arteries using Low Osmolar Contrast (ICD-10-PCS; 2019-02-27)
DX: I21.4 Non-ST elevation (NSTEMI) myocardial infarction (principal); K85.90 Acute pancreatitis without necrosis or infection, unspecified; N17.9 Acute kidney failure, unspecified; I12.9 Hypertensive chronic kidney disease with stage 1 through stage 4 chronic kidney disease, or unspecified chronic kidney disease; N18.9 Chronic kidney disease, unspecified; E11.22 Type 2 diabetes mellitus with diabetic chronic kidney disease; K21.9 Gastro-esophageal reflux disease without esophagitis; E78.5 Hyperlipidemia, unspecified; M10.9 Gout, unspecified; E11.40 Type 2 diabetes mellitus with diabetic neuropathy, unspecified; F31.9 Bipolar disorder, unspecified; E66.9 Obesity, unspecified; E03.9 Hypothyroidism, unspecified; Z68.38 Body mass index [BMI] 38.0-38.9, adult; R82.81 Pyuria; Z79.4 Long term (current) use of insulin; Z79.82 Long term (current) use of aspirin; Z95.5 Presence of coronary angioplasty implant and graft; Z89.512 Acquired absence of left leg below knee; Z89.011 Acquired absence of right thumb; Z89.021 Acquired absence of right finger(s); Z90.710 Acquired absence of both cervix and uterus; Z88.2 Allergy status to sulfonamides; Z88.1 Allergy status to other antibiotic agents; Z88.8 Allergy status to other drugs, medicaments and biological substances
CPT/HCPCS: 99233-AI; A4216; A9500; C9600; C9601; G0378; J0583; J0696; J1644; J1815; J2250; J2270; J2405; J2785; J3010; J7030

== ENCOUNTER → 2019-03-04 | Outpatient (CLI) | payer MEDICARE, OTHER, MEDICAID ==
[~2019-03-04] MED LIST changes: +PRALUENT P75 MG/1 ML SQ; +VASCEPA1 GM PO
== END ==
LOC: ZLAB.STJ 16:46
DX: A04.72 Enterocolitis due to Clostridium difficile, not specified as recurrent (principal)

== ENCOUNTER → 2019-03-21 | Outpatient (CLI) | payer MEDICARE, OTHER, MEDICAID ==
[2019-03-22 01:55] LABS: COLLECTION METHOD CLEAN CATCH
[2019-03-22 02:37] LABS: PH 6 (5-8); URINE APPEARANCE Cloudy; URINE BACTERIA Rare /hpf; URINE BILIRUBIN Negative (NEGATIVE); URINE BLOOD Negative (NEGATIVE); URINE COLOR Yellow; URINE GLUCOSE 1+ (NEGATIVE); URINE KETONE Negative (NEGATIVE); URINE LEUKOCYTE ESTERASE 3+ (NEGATIVE); URINE NITRATE Negative (NEGATIVE); URINE PROTEIN(semi-quant) Negative (NEGATIVE); URINE UROBILINOGEN Negative (NEGATIVE); URINE WBC >50 /hpf
== END ==
LOC: COL.LAB 21:57
PROVIDERS: Internal Medicine
DX: N39.0 Urinary tract infection, site not specified (principal)

== ENCOUNTER → 2019-04-15 | Outpatient (CLI) | payer MEDICARE, OTHER, MEDICAID ==
[2019-04-15 19:51] LABS: HEMOGLOBIN 12.6 g/dl (12.5-16.0); MEAN CELL VOLUME 90 fl (80.0-100.0); MEAN CORPUSCULAR HEMOGLOBIN 29 pg (27.0-31.0); MEAN CORPUSCULAR HGB CONC 32 g/dl (33.0-37.0); MEAN PLATELET VOLUME 9.7 fl (7.4-10.4); PLATELET COUNT 164 K/mm3 (130-400); RED BLOOD COUNT 4.35 M/mm3 (4.10-5.30); REDCELL DISTRIBUTION WIDTH-CV 16.5 % (11.5-14.5)
== END ==
LOC: ZCOL.LAB 18:45
PROVIDERS: Internal Medicine Nephrology
DX: D69.6 Thrombocytopenia, unspecified (principal); R53.1 Weakness; E21.5 Disorder of parathyroid gland, unspecified

== ENCOUNTER 2019-05-16 13:32 | Observation (INO) | payer MEDICARE, OTHER, MEDICAID ==
[~2019-05-16] VITALS: Ht 154.9 cm; Wt 86.4 kg
[2019-05-16 14:29] LABS: BASO # 0.1 (0.0-0.2); BASO % 0.7 % (0.0-2.0); EOS # 0.2 (0.0-0.7); EOS % 3.3 % (0-4.0); GRAN # 5.2 (1.4-6.5); HEMOGLOBIN 12.2 g/dl (12.5-16.0); LYMPH # 1.2 (1.2-3.4); LYMPH % 16.2 % (20.0-51.0); MEAN CELL VOLUME 89 fl (80.0-100.0); MEAN CORPUSCULAR HEMOGLOBIN 30 pg (27.0-31.0); MEAN CORPUSCULAR HGB CONC 33 g/dl (33.0-37.0); MEAN PLATELET VOLUME 9.7 fl (7.4-10.4); MONO # 0.5 (0.1-0.6); MONO % 7.2 % (1.7-9.3); PLATELET COUNT 125 K/mm3 (130-400); RED BLOOD COUNT 4.14 M/mm3 (4.10-5.30); REDCELL DISTRIBUTION WIDTH-CV 16.6 % (11.5-14.5)
[2019-05-16 14:40] LABS: ALANINE AMINOTRANSFERASE 21 U/L (9-52); ALBUMIN 4.2 gm/dL (3.5-5.0); ALKALINE PHOSPHATASE 147 U/L (50-136); ANION GAP 13 mmol/L (7-16); AST,SGOT 19 U/L (15-37); BILIRUBIN,TOTAL 0.7 mg/dL (0.0-1.0); BLOOD UREA NITROGEN 38 mg/dL (7-17); CALCIUM 10.4 mg/dL (8.4-10.2); CARBON DIOXIDE 24 mmol/L (22-30); CHLORIDE 101 mmol/L (98-107); CREATININE, serum 1.52 (0.52-1.25); POTASSIUM 4.6 mmol/L (3.4-5.0); SODIUM 138 mmol/L (137-145); TOTAL PROTEIN 6.9 gm/dL (6.4-8.2)
[2019-05-16 14:44] LABS: HEMATOCRIT 36.9 % (37.0-47.0)
[2019-05-16 14:46] LABS: GLUCOSE 450 mg/dL (74-106)
[2019-05-16 14:50] LABS: PROTHROMBIN TIME 11.6 SECONDS (9.7-12.8)
[2019-05-16 14:52] LABS: PARTIAL THROMBOPLASTIN TIME 35.3 SECONDS (26.0-37.0)
[2019-05-16 15:01] LABS: LIPASE 506 U/L (23-300)
[2019-05-16 15:03] LABS: TROPONIN-I < 0.012 ng/mL (0.000-0.035)
[2019-05-16] MEDS ORDERED: CREON 60000 U-11 ECC PO (15:53)
[2019-05-16] MEDS ORDERED: VASCEPA1 GM PO ×2 (15:57→15:58)
[2019-05-16 16:26] LABS: COLLECTION METHOD CATHETER
[2019-05-16 16:59] LABS: MUCOUS Present /lpf; PH 5 (5-8); SQUAMOUS EPITHELIAL 0-2 /hpf; URINE APPEARANCE Hazy; URINE BACTERIA Moderate /hpf; URINE BILIRUBIN Negative (NEGATIVE); URINE BLOOD Negative (NEGATIVE); URINE COLOR Yellow; URINE GLUCOSE 3+ (NEGATIVE); URINE KETONE Negative (NEGATIVE); URINE NITRATE Negative (NEGATIVE); URINE PROTEIN(semi-quant) Negative (NEGATIVE); URINE RBC 0-2 /hpf; URINE UROBILINOGEN Negative (NEGATIVE)
[2019-05-16 17:00] LABS: URINE LEUKOCYTE ESTERASE Negative (NEGATIVE)
--- NOTE | 2019-05-16 17:50 | NUR ---
Patient to room 348 from ED. See assessment. No c/o chest/jaw pain or pressure at this time. Oriented to room. No other c/o at this time.
[2019-05-16 19:32] VITALS: BP 151/80; PULSE 74; TEMP 97.9
--- NOTE | 2019-05-16 20:21 | NUR ---
PATIENT COMPLAINS OF CHEST PAIN, MEDICATED WITH MORPHINE 2MG IVP PER RT CHEST PORT. RATES PAIN 8/.
--- NOTE | 2019-05-16 22:35 | NUR ---
HS MEDS GIVEN. PATIENT DENIES NEEDS AT THIS TIME.
[2019-05-17 00:13] VITALS: BP 102/65; PULSE 74; TEMP 97.9
--- NOTE | 2019-05-17 02:50 | NUR ---
PATIENT AWAKE, REPORTS PAIN TO CHEST 6/10, MEDICATED WITH MORPHINE 2MG IVP AT THIS TIME.
[2019-05-17 04:40] VITALS: BP 122/103; PULSE 80; TEMP 98.4
[2019-05-17 04:55] VITALS: BP 110/70
--- NOTE | 2019-05-17 05:30 | NUR ---
PT ASSISTED TO BSC WITH 1 ASSIST, VOIDS WITHOUT PROBLEM AND BACK TO BED. TRANSFERS WELL.
[2019-05-17 08:00] VITALS: BP 117/50; PULSE 77; TEMP 97.8
--- NOTE | 2019-05-17 10:59 | NUR ---
Patient resides at [facility] (for approximately the last 1 and 1/2 years) and self-directed that she plans to return to [facility] upon her recovery. 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 Patient reported she has all necessary durable medical equipment she needs, her primary care physician is Dr. Arvizu and Bianka Black, and her pharmacy is [facility]. Patient does have advance directives for healthcare completed (DPOA 1 is Lois Mai [phone] and DPOA 2 is Nury Schaffer [phone]). Patient getting very tired and no further needs at this time. printing services coordinator will follow up as needed.
[2019-05-17 11:32] VITALS: BP 105/56; PULSE 81; TEMP 98.6
--- NOTE | 2019-05-17 12:04 | NUR ---
Patient alert and oriented, answers questions appropriately. See assessment. No c/o chest pain or pressure. Heart tones strong and even, pulses palpable. No c/o at this time.
[2019-05-17] MEDS ORDERED: NORCO 325 MG-51 TAB PO (13:22)
[2019-05-17 13:31] VITALS: BP 105/56; PULSE 81; TEMP 98.6
--- NOTE | 2019-05-17 13:44 | NUR ---
Patient is ready for discharge per Dr. Hurst this day so social services counselor contacted [place] with [facility] and set-up transportation for 14:45 this day via [facility] transportation. Social garnett updated patient's nurse Kari of discharge plan and faxed discharge orders to [place] at [facility] ([phone]).
--- NOTE | 2019-05-17 13:52 | NUR ---
PAC deaccessed per drs orders with no complications.
--- NOTE | 2019-05-17 13:58 | NUR ---
Patient tranferred to [facility] via wheelchair with transportation staff at 1355. Report called.
== END 2019-05-17 13:55 ==
LOC: COL.ER 13:32 → SURG 15:18
PROVIDERS: Emergency Medicine; Family Medicine; ADMIT Family Medicine
DX: R07.9 Chest pain, unspecified (principal); E78.41 Elevated Lipoprotein(a); E11.65 Type 2 diabetes mellitus with hyperglycemia; E11.40 Type 2 diabetes mellitus with diabetic neuropathy, unspecified; Z79.4 Long term (current) use of insulin; N31.9 Neuromuscular dysfunction of bladder, unspecified; K21.9 Gastro-esophageal reflux disease without esophagitis; M10.9 Gout, unspecified; Z85.72 Personal history of non-Hodgkin lymphomas; E03.9 Hypothyroidism, unspecified; F31.9 Bipolar disorder, unspecified; Z95.5 Presence of coronary angioplasty implant and graft; Z95.1 Presence of aortocoronary bypass graft; I25.10 Atherosclerotic heart disease of native coronary artery without angina pectoris; R68.84 Jaw pain; S02.5XXA Fracture of tooth (traumatic), initial encounter for closed fracture; R82.81 Pyuria; Z90.5 Acquired absence of kidney; R25.1 Tremor, unspecified; G43.909 Migraine, unspecified, not intractable, without status migrainosus; E21.3 Hyperparathyroidism, unspecified
CPT/HCPCS: J1644; J1815; J2270; J7030

== ENCOUNTER → 2019-07-17 | Outpatient (CLI) | payer MEDICARE, MEDICAID | LOC: BHSO 15:40 | DX: F31.81 Bipolar II disorder (principal) | CPT/HCPCS: G0463 ==

== ENCOUNTER → 2019-08-20 | Outpatient (CLI) | payer MEDICARE, MEDICAID ==
[2019-08-20 12:30] LABS: ALBUMIN 3.5 gm/dL (3.5-5.0); BILIRUBIN,TOTAL 0.6 mg/dL (0.0-1.0); CALCIUM 10.2 mg/dL (8.4-10.2); CREATININE, serum 1.19 (0.52-1.25); POTASSIUM 4.3 mmol/L (3.4-5.0); TOTAL PROTEIN 6.2 gm/dL (6.4-8.2)
[2019-08-20 12:59] LABS: TSH w REFLEX 3.1 uIU/mL (0.465-4.680)
== END ==
LOC: ZLAB.STJ 10:12
DX: E03.9 Hypothyroidism, unspecified (principal); E11.65 Type 2 diabetes mellitus with hyperglycemia; Z79.4 Long term (current) use of insulin

== ENCOUNTER → 2019-09-02 | Outpatient (CLI) | payer MEDICARE, MEDICAID | LOC: ZLAB.STJ 15:59 | DX: Z20.828 Contact with and (suspected) exposure to other viral communicable diseases (principal); Z01.84 Encounter for antibody response examination ==

== ENCOUNTER → 2019-09-24 | Outpatient (CLI) | payer MEDICARE, MEDICAID ==
[2019-09-24 12:32] LABS: COLLECTION METHOD CLEAN CATCH
[2019-09-24 12:50] LABS: PH 6 (5-8); SQUAMOUS EPITHELIAL None Seen /hpf; URINE APPEARANCE Cloudy; URINE BACTERIA None Seen /hpf; URINE BILIRUBIN Negative (NEGATIVE); URINE BLOOD Negative (NEGATIVE); URINE COLOR Yellow; URINE GLUCOSE Negative (NEGATIVE); URINE KETONE Negative (NEGATIVE); URINE LEUKOCYTE ESTERASE 3+ (NEGATIVE); URINE NITRATE Negative (NEGATIVE); URINE PROTEIN(semi-quant) Negative (NEGATIVE)
== END ==
LOC: ZLAB.STJ 08:56
PROVIDERS: Internal Medicine
DX: N18.3 Chronic kidney disease, stage 3 (moderate) (principal)

== ENCOUNTER 2019-10-18 21:22 | Emergency (ER) | payer MEDICARE, MEDICAID ==
[2008-12-27 17:53] VITALS: BP 144/90
[~2019-10-18] VITALS: Ht 160 cm; Wt 86.4 kg
[~2019-10-18 21:22] MED LIST changes: -VITAMIN D 1001000 IU PO; +VITAMIN D31000 IU PO
[2019-10-18 21:30] VITALS: TEMP 97.8
[2019-10-18] MEDS ORDERED: NOVOLOG 100U100 U/M1 SQ (22:01)
[2019-10-18 22:27] LABS: BASO % 0.4 % (0.0-2.0); EOS # 0.3 (0.0-0.7); EOS % 2.6 % (0-4.0); GRAN # 7.4 (1.4-6.5); GRAN % 73.4 % (42.2-75.2); HEMOGLOBIN 11.6 g/dl (12.5-16.0); LYMPH # 1.5 (1.2-3.4); LYMPH % 14.6 % (20.0-51.0); MEAN CELL VOLUME 94 fl (80.0-100.0); MEAN CORPUSCULAR HEMOGLOBIN 30 pg (27.0-31.0); MEAN CORPUSCULAR HGB CONC 32 g/dl (33.0-37.0); MEAN PLATELET VOLUME 9.6 fl (7.4-10.4); MONO # 0.8 (0.1-0.6); MONO % 7.5 % (1.7-9.3); PLATELET COUNT 121 K/mm3 (130-400); RED BLOOD COUNT 3.89 M/mm3 (4.10-5.30); REDCELL DISTRIBUTION WIDTH-CV 16.4 % (11.5-14.5)
[2019-10-18 22:29] LABS: HEMATOCRIT 36.4 % (37.0-47.0)
[2019-10-18 22:37] LABS: ALBUMIN 3.9 gm/dL (3.5-5.0); BILIRUBIN,TOTAL 0.7 mg/dL (0.0-1.0); CALCIUM 9.9 mg/dL (8.4-10.2); CREATININE, serum 1.41 (0.52-1.25); POTASSIUM 3.9 mmol/L (3.4-5.0)
[2019-10-18 23:38] VITALS: BP 128/70; PULSE 66
[2019-10-21] MEDS ORDERED: BRILINTA90 MG PO (04:14)
== END 2019-10-18 23:38 ==
LOC: COL.ER 21:22
PROVIDERS: Emergency Medicine
DX: S80.01XA Contusion of right knee, initial encounter (principal); R51 Headache; I10 Essential (primary) hypertension; E11.9 Type 2 diabetes mellitus without complications; I25.10 Atherosclerotic heart disease of native coronary artery without angina pectoris; Z79.82 Long term (current) use of aspirin; Z79.4 Long term (current) use of insulin; Z79.890 Hormone replacement therapy; W06.XXXA Fall from bed, initial encounter; Y92.129 Unspecified place in nursing home as the place of occurrence of the external cause

== ENCOUNTER 2019-11-04 11:43 | Emergency (ER) | payer MEDICARE, MEDICAID ==
[2008-12-27 17:53] VITALS: BP 144/90
[2019-11-04 11:49] VITALS: TEMP 97.6
[2019-11-04 12:20] LABS: BASO # 0.1 (0.0-0.2); BASO % 0.5 % (0.0-2.0); EOS # 0.4 (0.0-0.7); GRAN # 7.3 (1.4-6.5); GRAN % 77.6 % (42.2-75.2); HEMATOCRIT 29.4 % (37.0-47.0); HEMOGLOBIN 8.9 g/dl (12.5-16.0); LYMPH % 10.5 % (20.0-51.0); MEAN CELL VOLUME 98 fl (80.0-100.0); MEAN CORPUSCULAR HEMOGLOBIN 30 pg (27.0-31.0); MEAN CORPUSCULAR HGB CONC 30 g/dl (33.0-37.0); MEAN PLATELET VOLUME 9.3 fl (7.4-10.4); MONO # 0.6 (0.1-0.6); PLATELET COUNT 161 K/mm3 (130-400); RED BLOOD COUNT 2.99 M/mm3 (4.10-5.30); REDCELL DISTRIBUTION WIDTH-CV 17.6 % (11.5-14.5)
[2019-11-04 12:24] LABS: INR 1.2 (0.8-3.0); PROTHROMBIN TIME 13.1 SECONDS (9.7-12.8)
[2019-11-04 12:35] LABS: ALBUMIN 3.5 gm/dL (3.5-5.0); BILIRUBIN,TOTAL 1.3 mg/dL (0.0-1.0); CALCIUM 9.5 mg/dL (8.4-10.2); CREATININE, serum 1.49 (0.52-1.25); POTASSIUM 4.3 mmol/L (3.4-5.0); TOTAL PROTEIN 6.3 gm/dL (6.4-8.2)
[2019-11-04 13:00] LABS: TROPONIN-I 0.153 ng/mL (0.000-0.035)
[2019-11-04 14:09] LABS: PARTIAL THROMBOPLASTIN TIME 43.2 SECONDS (26.0-37.0)
[2019-11-04 14:28] VITALS: BP 122/61; PULSE 61
== END 2019-11-04 14:28 | disposition short-term general hospital (02) ==
LOC: COL.ER 11:43
PROVIDERS: Emergency Medicine
DX: R07.89 Other chest pain (principal); I10 Essential (primary) hypertension; F31.9 Bipolar disorder, unspecified; I25.10 Atherosclerotic heart disease of native coronary artery without angina pectoris; Z95.9 Presence of cardiac and vascular implant and graft, unspecified; Z79.82 Long term (current) use of aspirin; Z79.4 Long term (current) use of insulin; Z95.1 Presence of aortocoronary bypass graft
CPT/HCPCS: J1644; J2270; J7030

== ENCOUNTER → 2019-11-18 | Outpatient (CLI) | payer MEDICARE, MEDICAID ==
[2019-11-18 18:56] LABS: COLLECTION METHOD CLEAN CATCH
[2019-11-18 19:05] LABS: PH 5 (5-8); SQUAMOUS EPITHELIAL 0-2 /hpf; URINE APPEARANCE Cloudy; URINE BACTERIA Rare /hpf; URINE BILIRUBIN Negative (NEGATIVE); URINE BLOOD 1+ (NEGATIVE); URINE COLOR Yellow; URINE GLUCOSE Negative (NEGATIVE); URINE KETONE Negative (NEGATIVE); URINE LEUKOCYTE ESTERASE 3+ (NEGATIVE); URINE NITRATE Negative (NEGATIVE); URINE PROTEIN(semi-quant) 1+ (NEGATIVE); URINE UROBILINOGEN Negative (NEGATIVE)
== END ==
LOC: ZCOL.LAB 18:21
PROVIDERS: Internal Medicine
DX: N19 Unspecified kidney failure (principal)

== ENCOUNTER → 2019-11-25 | Outpatient (CLI) | payer MEDICARE, MEDICAID ==
[2019-11-25 17:36] LABS: COLLECTION METHOD CLEAN CATCH
[2019-11-25 17:51] LABS: MUCOUS Present /lpf; PH 5 (5-8); URINE APPEARANCE Cloudy; URINE BACTERIA Moderate /hpf; URINE BILIRUBIN Negative (NEGATIVE); URINE BLOOD Negative (NEGATIVE); URINE COLOR Yellow; URINE GLUCOSE 3+ (NEGATIVE); URINE KETONE Negative (NEGATIVE); URINE LEUKOCYTE ESTERASE 3+ (NEGATIVE); URINE NITRATE Negative (NEGATIVE); URINE PROTEIN(semi-quant) 1+ (NEGATIVE); URINE RBC >50 /hpf; URINE UROBILINOGEN Negative (NEGATIVE)
== END ==
LOC: ZLAB.STJ 16:13
PROVIDERS: Internal Medicine
DX: Z01.89 Encounter for other specified special examinations (principal)

== ENCOUNTER 2019-12-15 22:18 | Emergency (ER) | payer MEDICARE, MEDICAID ==
[2008-12-27 17:53] VITALS: BP 144/90
[~2019-12-15] VITALS: Ht 160 cm; Wt 81.8 kg
[2019-12-15 22:22] VITALS: TEMP 98.8
[2019-12-15 22:43] LABS: HEMOGLOBIN 10.7 g/dl (12.5-16.0); MEAN CELL VOLUME 91 fl (80.0-100.0); MEAN CORPUSCULAR HEMOGLOBIN 29 pg (27.0-31.0); MEAN CORPUSCULAR HGB CONC 32 g/dl (33.0-37.0); MEAN PLATELET VOLUME 9.6 fl (7.4-10.4); PLATELET COUNT 153 K/mm3 (130-400); RED BLOOD COUNT 3.71 M/mm3 (4.10-5.30); REDCELL DISTRIBUTION WIDTH-CV 15.5 % (11.5-14.5)
[2019-12-15 22:47] LABS: COLLECTION METHOD CATHETER
[2019-12-15 22:49] LABS: INR 1.1 (0.8-3.0)
[2019-12-15 22:52] LABS: PARTIAL THROMBOPLASTIN TIME 64.2 SECONDS (26.0-37.0)
[2019-12-15 22:56] VITALS: PULSE 100
[2019-12-15 22:57] LABS: BILIRUBIN,TOTAL 0.4 mg/dL (0.0-1.0); CALCIUM 10.1 mg/dL (8.4-10.2); CREATININE, serum 1.32 (0.52-1.25); POTASSIUM 3.9 mmol/L (3.4-5.0); TOTAL PROTEIN 6.9 gm/dL (6.4-8.2)
[2019-12-15 22:59] LABS: PH 7 (5-8); SQUAMOUS EPITHELIAL None Seen /hpf; URINE APPEARANCE Cloudy; URINE BACTERIA Moderate /hpf; URINE BILIRUBIN Negative (NEGATIVE); URINE BLOOD Negative (NEGATIVE); URINE COLOR Yellow; URINE GLUCOSE Negative (NEGATIVE); URINE KETONE Negative (NEGATIVE); URINE LEUKOCYTE ESTERASE 3+ (NEGATIVE); URINE NITRATE Negative (NEGATIVE); URINE PROTEIN(semi-quant) 1+ (NEGATIVE); URINE UROBILINOGEN Negative (NEGATIVE)
[2019-12-15 23:05] LABS: HEMATOCRIT 33.8 % (37.0-47.0)
[2019-12-15 23:08] LABS: TROPONIN-I 0.012 ng/mL (0.000-0.035)
[2019-12-15 23:33] LABS: BAND 4 % (0-10); EOSINOPHIL 2 % (0-4); LYMPHOCYTE 12 % (20.0-51.0); METAMYELOCYTE 1 % (0-0); NEUTROPHILS 73 % (42.0-75.2)
[2019-12-15 23:35] LABS: PLATELET ESTIMATE NORMAL (NORMAL)
[2019-12-16 01:20] VITALS: BP 109/82
== END 2019-12-16 01:20 | disposition short-term general hospital (02) ==
LOC: COL.ER 22:18
PROVIDERS: Emergency Medicine
DX: R07.9 Chest pain, unspecified (principal); R06.00 Dyspnea, unspecified; I50.9 Heart failure, unspecified; N39.0 Urinary tract infection, site not specified; I11.0 Hypertensive heart disease with heart failure; E78.5 Hyperlipidemia, unspecified; F31.9 Bipolar disorder, unspecified; M10.9 Gout, unspecified; I25.10 Atherosclerotic heart disease of native coronary artery without angina pectoris; E11.40 Type 2 diabetes mellitus with diabetic neuropathy, unspecified; E11.22 Type 2 diabetes mellitus with diabetic chronic kidney disease; I12.9 Hypertensive chronic kidney disease with stage 1 through stage 4 chronic kidney disease, or unspecified chronic kidney disease; N18.9 Chronic kidney disease, unspecified; Z86.79 Personal history of other diseases of the circulatory system; Z95.5 Presence of coronary angioplasty implant and graft; Z79.82 Long term (current) use of aspirin; Z79.899 Other long term (current) drug therapy; Z79.4 Long term (current) use of insulin
CPT/HCPCS: J1644; J2185; J2270; J7030; Q9967

== ENCOUNTER → 2019-12-15 | Outpatient (CLI) | payer MEDICARE, MEDICAID ==
[2019-12-15 11:41] LABS: COLLECTION METHOD CLEAN CATCH
[2019-12-15 12:01] LABS: PH 5 (5-8); URINE APPEARANCE Turbid; URINE BACTERIA Rare /hpf; URINE BILIRUBIN Negative (NEGATIVE); URINE BLOOD Negative (NEGATIVE); URINE COLOR Amber; URINE GLUCOSE Negative (NEGATIVE); URINE KETONE Negative (NEGATIVE); URINE LEUKOCYTE ESTERASE 3+ (NEGATIVE); URINE NITRATE Negative (NEGATIVE); URINE PROTEIN(semi-quant) 2+ (NEGATIVE); URINE UROBILINOGEN Negative (NEGATIVE); URINE WBC >50 /hpf
== END ==
LOC: ZLAB.STJ 11:04
PROVIDERS: Internal Medicine
DX: N39.0 Urinary tract infection, site not specified (principal)

== ENCOUNTER → 2020-01-19 | Outpatient (CLI) | payer MEDICARE, MEDICAID | LOC: ZLAB.STJ 16:05 | DX: E11.8 Type 2 diabetes mellitus with unspecified complications (principal); E21.5 Disorder of parathyroid gland, unspecified ==

== ENCOUNTER → 2020-01-21 | Outpatient (CLI) | payer MEDICARE, MEDICAID ==
[2020-01-21 17:00] LABS: HEMOGLOBIN 10.2 g/dl (12.5-16.0); MEAN CELL VOLUME 92 fl (80.0-100.0); MEAN CORPUSCULAR HEMOGLOBIN 28 pg (27.0-31.0); MEAN CORPUSCULAR HGB CONC 31 g/dl (33.0-37.0); MEAN PLATELET VOLUME 10.1 fl (7.4-10.4); PLATELET COUNT 136 K/mm3 (130-400); RED BLOOD COUNT 3.64 M/mm3 (4.10-5.30); REDCELL DISTRIBUTION WIDTH-CV 17.2 % (11.5-14.5)
[2020-01-21 17:00] LABS: COLLECTION METHOD CATHETER
[2020-01-21 17:08] LABS: ALBUMIN 3.7 gm/dL (3.5-5.0); CALCIUM 10.3 mg/dL (8.4-10.2); CREATININE, serum 1.32 (0.52-1.25); PHOSPHOROUS 3.4 mg/dL (2.5-4.5)
[2020-01-21 17:29] LABS: POTASSIUM 6.2 mmol/L (3.4-5.0)
[2020-01-21 17:30] LABS: AMORPHOUS CRYSTAL Present /uL; MUCOUS Present /lpf; PH 6 (5-8); SQUAMOUS EPITHELIAL 0-2 /hpf; URINE APPEARANCE Cloudy; URINE BACTERIA Moderate /hpf; URINE BILIRUBIN Negative (NEGATIVE); URINE BLOOD 1+ (NEGATIVE); URINE COLOR Yellow; URINE GLUCOSE Negative (NEGATIVE); URINE KETONE Negative (NEGATIVE); URINE LEUKOCYTE ESTERASE 3+ (NEGATIVE); URINE NITRATE Positive (NEGATIVE); URINE PROTEIN(semi-quant) 1+ (NEGATIVE); URINE UROBILINOGEN Negative (NEGATIVE); URINE WBC >50 /hpf
[2020-01-21 17:32] LABS: HEMATOCRIT 33.4 % (37.0-47.0)
[2020-01-21 17:52] LABS: BAND 2 % (0-10); EOSINOPHIL 4 % (0-4); LYMPHOCYTE 47 % (20.0-51.0); NEUTROPHILS 34 % (42.0-75.2)
[2020-01-21 17:57] LABS: ANISOCYTOSIS 1+; HYPOCHROMIA 3+; PLATELET ESTIMATE NORMAL (NORMAL)
== END ==
LOC: ZCOL.LAB 16:32
PROVIDERS: Internal Medicine Nephrology
DX: E11.8 Type 2 diabetes mellitus with unspecified complications (principal); N18.30 Chronic kidney disease, stage 3 unspecified

== ENCOUNTER → 2020-01-28 | Emergency (ER) | payer MEDICARE, MEDICAID ==
[2008-12-27 17:53] VITALS: BP 144/90
[~2020-01-28] VITALS: Ht 160 cm; Wt 83.2 kg
[2020-01-28 18:13] VITALS: TEMP 98.6
[2020-01-28 18:41] LABS: MEAN CELL VOLUME 89 fl (80.0-100.0); MEAN CORPUSCULAR HEMOGLOBIN 28 pg (27.0-31.0); MEAN CORPUSCULAR HGB CONC 31 g/dl (33.0-37.0); MEAN PLATELET VOLUME 9.2 fl (7.4-10.4); PLATELET COUNT 137 K/mm3 (130-400); RED BLOOD COUNT 3.98 M/mm3 (4.10-5.30); REDCELL DISTRIBUTION WIDTH-CV 17.5 % (11.5-14.5)
[2020-01-28 18:43] LABS: HEMATOCRIT 35.6 % (37.0-47.0)
[2020-01-28 18:49] LABS: ALANINE AMINOTRANSFERASE 13 U/L (4-34); ALBUMIN 4.3 gm/dL (3.5-5.0); ALKALINE PHOSPHATASE 94 U/L (50-136); ANION GAP 10 mmol/L (7-16); AST,SGOT 17 U/L (15-37); BILIRUBIN,TOTAL 0.5 mg/dL (0.0-1.0); BLOOD UREA NITROGEN 24 mg/dL (7-17); CARBON DIOXIDE 27 mmol/L (22-30); CHLORIDE 107 mmol/L (98-107); CREATININE, serum 1.23 (0.52-1.25); GLUCOSE 95 mg/dL (74-106); PHOSPHOROUS 3.2 mg/dL (2.5-4.5); TOTAL PROTEIN 7.2 gm/dL (6.4-8.2)
[2020-01-28 18:55] LABS: SODIUM 144 mmol/L (137-145)
[2020-01-28 19:09] LABS: TROPONIN-I < 0.012 ng/mL (0.000-0.035)
[2020-01-28 19:36] LABS: BAND 1 % (0-10); EOSINOPHIL 1 % (0-4); LYMPHOCYTE 20 % (20.0-51.0); NEUTROPHILS 71 % (42.0-75.2)
[2020-01-28 19:38] LABS: ANISOCYTOSIS 1+; HYPOCHROMIA 3+; PLATELET ESTIMATE NORMAL (NORMAL); TOXIC GRANULATION PRESENT
[2020-01-28 19:54] VITALS: BP 108/60; PULSE 62
== END ==
LOC: COL.ER 17:54
PROVIDERS: Emergency Medicine
DX: R07.9 Chest pain, unspecified (principal); E87.8 Other disorders of electrolyte and fluid balance, not elsewhere classified; I25.10 Atherosclerotic heart disease of native coronary artery without angina pectoris; E11.9 Type 2 diabetes mellitus without complications; Z95.5 Presence of coronary angioplasty implant and graft; Z95.1 Presence of aortocoronary bypass graft; Z86.79 Personal history of other diseases of the circulatory system; Z88.1 Allergy status to other antibiotic agents; Z88.2 Allergy status to sulfonamides; Z88.5 Allergy status to narcotic agent; Z88.8 Allergy status to other drugs, medicaments and biological substances; Z79.82 Long term (current) use of aspirin; Z79.4 Long term (current) use of insulin
CPT/HCPCS: J1644

== ENCOUNTER → 2020-01-28 | Outpatient (CLI) | payer MEDICARE, MEDICAID ==
[2020-01-28 10:34] LABS: CALCIUM 7.6 mg/dL (8.4-10.2); CREATININE, serum 0.95 (0.52-1.25); POTASSIUM 3.7 mmol/L (3.4-5.0)
== END ==
LOC: ZLAB.STJ 04:14
PROVIDERS: Internal Medicine
DX: E87.6 Hypokalemia (principal)

== ENCOUNTER → 2020-01-28 | Outpatient (CLI) | payer MEDICARE, MEDICAID | LOC: BHSO 16:56 | DX: F31.81 Bipolar II disorder (principal) ==

== ENCOUNTER 2020-02-02 02:49 | Emergency (ER) | payer MEDICARE, MEDICAID ==
[2008-12-27 17:53] VITALS: BP 144/90
[~2020-02-02] VITALS: Ht 160 cm; Wt 83.2 kg
[2020-02-02 02:54] VITALS: TEMP 98.2
[2020-02-02 03:29] LABS: BASO % 0.4 % (0.0-2.0); EOS # 0.3 (0.0-0.7); GRAN # 5.7 (1.4-6.5); GRAN % 70.6 % (42.2-75.2); HEMOGLOBIN 10.5 g/dl (12.5-16.0); LYMPH # 1.4 (1.2-3.4); LYMPH % 17.2 % (20.0-51.0); MEAN CELL VOLUME 90 fl (80.0-100.0); MEAN CORPUSCULAR HEMOGLOBIN 28 pg (27.0-31.0); MEAN CORPUSCULAR HGB CONC 31 g/dl (33.0-37.0); MEAN PLATELET VOLUME 9.7 fl (7.4-10.4); MONO # 0.5 (0.1-0.6); MONO % 6.6 % (1.7-9.3); PLATELET COUNT 125 K/mm3 (130-400); RED BLOOD COUNT 3.79 M/mm3 (4.10-5.30); REDCELL DISTRIBUTION WIDTH-CV 17.6 % (11.5-14.5)
[2020-02-02 03:30] LABS: HEMATOCRIT 34.2 % (37.0-47.0)
[2020-02-02 03:35] LABS: PROTHROMBIN TIME 10.7 SECONDS (9.7-12.8)
[2020-02-02 03:38] LABS: ALANINE AMINOTRANSFERASE 13 U/L (4-34); ALKALINE PHOSPHATASE 90 U/L (50-136); ANION GAP 10 mmol/L (7-16); AST,SGOT 16 U/L (15-37); BILIRUBIN,TOTAL 0.5 mg/dL (0.0-1.0); BLOOD UREA NITROGEN 31 mg/dL (7-17); CALCIUM 9.6 mg/dL (8.4-10.2); CARBON DIOXIDE 24 mmol/L (22-30); CHLORIDE 106 mmol/L (98-107); CREATINE KINASE 40 U/L (30-135); CREATININE, serum 1.41 (0.52-1.25); GLUCOSE 221 mg/dL (74-106); LIPASE 93 U/L (23-300); PARTIAL THROMBOPLASTIN TIME 85.3 SECONDS (26.0-37.0); POTASSIUM 4.2 mmol/L (3.4-5.0); SODIUM 140 mmol/L (137-145); TOTAL PROTEIN 6.6 gm/dL (6.4-8.2)
[2020-02-02 03:51] LABS: TROPONIN-I < 0.012 ng/mL (0.000-0.035)
[2020-02-02 07:21] VITALS: BP 95/56; PULSE 58
== END 2020-02-02 07:30 | disposition home or self-care (01) ==
LOC: COL.ER 02:49
PROVIDERS: Emergency Medicine
DX: R07.89 Other chest pain (principal); E11.9 Type 2 diabetes mellitus without complications; I10 Essential (primary) hypertension; E78.5 Hyperlipidemia, unspecified; I25.10 Atherosclerotic heart disease of native coronary artery without angina pectoris; F31.9 Bipolar disorder, unspecified; G43.909 Migraine, unspecified, not intractable, without status migrainosus; E03.9 Hypothyroidism, unspecified; Z95.9 Presence of cardiac and vascular implant and graft, unspecified; Z88.2 Allergy status to sulfonamides; Z88.8 Allergy status to other drugs, medicaments and biological substances; Z88.6 Allergy status to analgesic agent; Z79.82 Long term (current) use of aspirin; Z79.890 Hormone replacement therapy; E21.3 Hyperparathyroidism, unspecified; Z79.4 Long term (current) use of insulin; Z79.02 Long term (current) use of antithrombotics/antiplatelets
CPT/HCPCS: J2270; J2405

== ENCOUNTER → 2020-02-29 | Outpatient (REF) ==
[2020-02-29 15:15] LABS: CREATININE, serum 1.19 (0.52-1.25)
== END ==
LOC: ZLAB.STJ 15:00
PROVIDERS: Internal Medicine
DX: N18.4 Chronic kidney disease, stage 4 (severe) (principal)

== ENCOUNTER 2020-03-17 15:16 | Emergency (ER) | payer MEDICARE, MEDICAID ==
[2008-12-27 17:53] VITALS: BP 144/90
[~2020-03-17] VITALS: Ht 160 cm; Wt 86.4 kg
[2020-03-17 15:17] VITALS: TEMP 98.5
[2020-03-17 16:13] LABS: BASO % 0.3 % (0.0-2.0); EOS # 0.2 (0.0-0.7); EOS % 2.6 % (0-4.0); GRAN # 6.8 (1.4-6.5); GRAN % 74.7 % (42.2-75.2); LYMPH # 1.3 (1.2-3.4); LYMPH % 13.8 % (20.0-51.0); MEAN CELL VOLUME 93 fl (80.0-100.0); MEAN CORPUSCULAR HGB CONC 32 g/dl (33.0-37.0); MEAN PLATELET VOLUME 8.8 fl (7.4-10.4); MONO # 0.7 (0.1-0.6); MONO % 7.5 % (1.7-9.3); PLATELET COUNT 138 K/mm3 (130-400); REDCELL DISTRIBUTION WIDTH-CV 17.9 % (11.5-14.5)
[2020-03-17 16:17] LABS: HEMATOCRIT 30.7 % (37.0-47.0); HEMOGLOBIN 9.8 g/dl (12.5-16.0); MEAN CORPUSCULAR HEMOGLOBIN 30 pg (27.0-31.0)
[2020-03-17 16:19] LABS: INR 1.2 (0.8-3.0); PROTHROMBIN TIME 12.9 SECONDS (9.7-12.8)
[2020-03-17 16:28] LABS: ALANINE AMINOTRANSFERASE 10 U/L (4-34); ALBUMIN 3.5 gm/dL (3.5-5.0); ALKALINE PHOSPHATASE 69 U/L (50-136); ANION GAP 9 mmol/L (7-16); AST,SGOT 19 U/L (15-37); BILIRUBIN,TOTAL 0.6 mg/dL (0.0-1.0); BLOOD UREA NITROGEN 32 mg/dL (7-17); CALCIUM 8.2 mg/dL (8.4-10.2); CARBON DIOXIDE 23 mmol/L (22-30); CHLORIDE 112 mmol/L (98-107); CREATININE, serum 1.44 (0.52-1.25); GLUCOSE 45 mg/dL (74-106); LIPASE 91 U/L (23-300); POTASSIUM 3.7 mmol/L (3.4-5.0); SODIUM 143 mmol/L (137-145); TOTAL PROTEIN 5.9 gm/dL (6.4-8.2)
[2020-03-17 16:46] LABS: TROPONIN-I < 0.012 ng/mL (0.000-0.035)
[2020-03-17 21:12] VITALS: BP 92/76; PULSE 64
== END 2020-03-17 21:30 | disposition home or self-care (01) ==
LOC: COL.ER 15:16
PROVIDERS: Emergency Medicine
DX: R07.9 Chest pain, unspecified (principal); E11.10 Type 2 diabetes mellitus with ketoacidosis without coma; F31.9 Bipolar disorder, unspecified; E78.5 Hyperlipidemia, unspecified; M10.9 Gout, unspecified; N18.30 Chronic kidney disease, stage 3 unspecified; I10 Essential (primary) hypertension; I25.2 Old myocardial infarction; Z79.02 Long term (current) use of antithrombotics/antiplatelets; Z88.2 Allergy status to sulfonamides; Z95.9 Presence of cardiac and vascular implant and graft, unspecified; Z89.512 Acquired absence of left leg below knee; Z88.6 Allergy status to analgesic agent; Z88.8 Allergy status to other drugs, medicaments and biological substances; Z79.82 Long term (current) use of aspirin; Z79.4 Long term (current) use of insulin
CPT/HCPCS: J2270